=== PATIENT | female | born 1950 | race American Indian/Alaskan Native ===

== ENCOUNTER 2020-03-11 06:40 | Emergency (ER) | payer MEDICARE, OTHER ==
[~2020-03-11] VITALS: Ht 154.9 cm; Wt 69.4 kg
[~2020-03-11 06:40] MED LIST: ALLOPURINOL300 MG PO; AMLODIPINE BESY10 MG PO; ASPIRIN EC81 MG PO; HYDROCODON-ACE1 EA11 PO; NORCO 5-325 TA1 EACH PO; OMEPRAZOLE20 MG PO; POTASSIUM CHLO20 ME1 PO; TRIAMTERENE-HC1 EAC1 PO
--- OUTSIDE RECORDS SUMMARY | 2020-03-11 06:42 | XMS ---
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 Earle has no Care Guidelines for this patient. Jerry VISIT COUNT (12 MO.) 1 TARUN Schaefer TOTAL 1 NOTE: Visits indicate total known visits. ED/C VISIT TRACKING (12 MO.) 03/11/2020 06:40 TARUN Villalobos [place] TYPE: Emergency COMPLAINT: - BACK PAIN, NON INJ INPATIENT VISIT TRACKING (12 MO.) No inpatient visits to display in this time frame [email or web address]
== END 2020-03-11 19:05 | disposition short-term general hospital (02) ==
LOC: ED 06:40
DX: M48.04 Spinal stenosis, thoracic region (principal); M89.9 Disorder of bone, unspecified; I10 Essential (primary) hypertension; Z88.8 Allergy status to other drugs, medicaments and biological substances; Z88.0 Allergy status to penicillin; Z79.899 Other long term (current) drug therapy; Z79.82 Long term (current) use of aspirin
CPT/HCPCS: 71046; 72070; 72128; 80053; 83690; 85025; 96374; 96375; 96376; 99285-25; J1100; J1170; J1885; J2270; J2405; J3010

== ENCOUNTER 2020-03-26 17:41 | Emergency (ER) | payer MEDICARE, OTHER ==
[~2020-03-26] VITALS: Ht 154.9 cm; Wt 69.4 kg
--- OUTSIDE RECORDS SUMMARY | ~2020-03-26 | XMS | Encounter Summary ---
Demographics + + + | Address | [address] | | | [place] [address] | + + + | Home Phone | | + + + | Preferred Language | Unknown | + + + | Marital Status | | + + + | Cheondoism Affiliation | CAT | + + + | Race | or | + + + | Ethnic Group | Not or | + + + Author + + + | Author | [employer] [facility] | + + + | Organization | [facility] | + + + | Address | Unknown | + + + | Phone | Unavailable | + + + Support + + +---------+ + | Name | Relationship | Address | Phone | + + +---------+ + | Jamie Onofre | ECON | Unknown | | + + +---------+ + Care Team Providers + +------+ + | Care Architectural Associate Name | Role | Phone | + +------+ + | Med Quintero MD | PCP | | + +------+ + Encounter Details +--------+ + + + + | Date | Type | Department | Care Team | Description | +--------+ + + + + | 08/27/ | Pharmacy | Pharmacy @ [facility] | | | | 2020 | Visit | [address] | | | | | | [address] Mailcode: | | | | | | [facility] | | | | | | and Healing, | | | | | | [address] | | | | | | [place], [place] | | | | | | [address] | | | +--------+ + + + + Social History + +-------+ +--------+------+ | Tobacco Use | Types | Packs/Day | Years | Date | | | | | Used | | + +-------+ +--------+------+ | Former Smoker | | | | | + +-------+ +--------+------+ + +---+---+---+ | Smokeless Tobacco: | | | | | Never Used | | | | + +---+---+---+ + + +---------+ + | Alcohol Use | Drinks/Week | oz/Week | Comments | + + +---------+ + | Not Currently | | | | + + +---------+ + + + + | Sex Assigned at | Date Recorded | | | | + + + | Not on file | | + + + documented as of this encounter Plan of Treatment Not on filedocumented as of this encounter Visit Diagnoses Not on filedocumented in this encounter"
--- OUTSIDE RECORDS SUMMARY | ~2020-03-26 | XMS | Encounter Summary ---
Demographics + + + | Address | [address] | | | [place] [address] | + + + | Home Phone | | + + + | Preferred Language | Unknown | + + + | Marital Status | | + + + | Alevism Affiliation | CAT | + + + | Race | or | + + + | Ethnic Group | Not or | + + + Author + + + | Author | [employer] [facility] | + + + | Organization | [facility] | + + + | Address | Unknown | + + + | Phone | Unavailable | + + + Support + + +---------+ + | Name | Relationship | Address | Phone | + + +---------+ + | Jamie Onofre | ECON | Unknown | | + + +---------+ + Care Team Providers + +------+ + | Care Drupal Developer Name | Role | Phone | + +------+ + | Med Quintero MD | PCP | | + +------+ + Reason for Visit + +--------+ + | Reason | Onset | Comments | | | Date | | + +--------+ + | Care Coordination | 08/27/ | | | | 2020 | | + +--------+ + Encounter Details +--------+ + + + + | Date | Type | Department | Care Team | Description | +--------+ + + + + | 08/27/ | [facility] | Elvia Shah, | Care Coordination | | 2020 | | [facility] | [address] | | | | | [address] | [facility] | | | | | [address] | [place], [place] | | | | | [place], [address] [place] [address] | [address] | | | | | [place], [place] | [phone] | | | | | [address] | | | | | | [phone] | | | +--------+ + + + [...] + + documented as of this encounter Miscellaneous Notes Telephone Encounter - Selin Perez RN - 08/31/2019 9:56 AM PSTTC to patient. Reports was having intermittent vaginal bleeding "almost like I was on my period." Now just spotting. Amount never as much as 1 pad per hour. Some lower back and pelvic pain- worse when sitting down, 4-5/10 at worst. Has been using i buprofen from [employer] [place], has been helpful, pain not interfering with activities. Some urinary urgency continuing after surgery, same as before. Not much leaking, no change. Pt inquiring about "did they fix my bladder" during surgery, states "maybe it's just taking it's time." No pain or burning with urination. Discussed that sling is intended to prevent leaking of urine and will not necessarily change sensation of urgency. Pt states has not been doing much activity but goes for walks, and holds baby. Reassured that bleeding and mild pain sound normal, monitor symptoms and decrease any activ ities that she notices exacerbate sx. Continue ibuprofen as ordered. Reviewed to seek emergent care for bleeding >1 pad/hr or severe pain. Follow up with our of elaine or Marina Contreras as needed, and schedule appt with tenter frame operator at [facility]. Pt verbalized understanding and was agreeable to plan. Routing to Dr. Shah and Dr. Schmidt for FYI. elephone Encounter - Selin Perez RN - 08/31/2019 9:53 AM PST Elvia Shah MD You; [facility] Urogyn Triage Pool; Neel Schmidt MD 1 hour ago (8:26 AM) Happy to see Verena. She travels over 5 hours to get here so we had decided only to schedule post-op if needed. Her symptoms sound very normal and non-worrisome. Please call and offer a n appt if desired or that the bleeding likely represents the last of the sutures dissolving and she can just monitor symptoms. If bleeding >1pad/hour she should seek care urgently. Routing comment elephone Encount er - Neel Schmidt MD - 08/30/2019 7:33 PM PSTShe should be examined by a tenter frame operator at some point but this does not sound urgent or emergent. She was seen for a postop visit a fe w weeks ago and was noted to have intact and healing incisions. Should she develop very hea vy vaginal bleeding (>1 pad/hr for more than to hours, saturating the pad), she should seek emergent care in the ED or an urgent care facility. If an OBGYN comes to that clinic on Fri, she could certainly be evaluated. Alternatively, she can schedule an additional post operative visit with us (she does not currently have one scheduled). elephone Encounter - Selin Perez RN - 08/30/2019 3:49 PM PSTTC from FERMIN Carpio at [facility] in [facility]. Reports pt went to clinic Friday, had vaginal bleeding. Using pads, <1 pad per hour but Shirin unsure of leigh unt. Also saw several quarter-sized clots while showering. Pt had no dizziness or signs of dangerous blood loss. Pt reported that she had been increasing activity (walking 2+ miles, loading firewood), and Shirin recommended scaling back. They have REGIONAL SALES ASSOCIATE who comes in on Tuesdays. Shirin did not have alternate contact information for Verena. If she is able to reach patient, she will ask her to call [facility]. Tried to call patient again and again no answer or voice mail. Routing to Dr. Shah for review and recommendations. elephone Encount er - Selin Perez RN - 08/30/2019 1:28 PM PSTTC to patient. No answer and no voice mail at [phone]. No alternate number and pt does not have [employer]. TC to Shirin at [facility]. No answer, left message to call back. Electronically sig angie by Selin Perez RN at 08/30/2019 1:30 PM PSTTelephone Encounter - Raji Newman - 08/27/2019 4:18 PM Ar CHRISTENSEN at [facility] in [facility], [place] calling statin g they saw the patient for post op bleeding and requests a call back to discuss. DOS 08/02 Shirin can be reached at [phone] signed by Prudence Newman at 0 4:19 PM PSTdocumented in this encounter Plan of Treatment Not on filedocumented as of this encounter Visit Diagnoses Not on filedocumented in this encounter
--- OUTSIDE RECORDS SUMMARY | ~2020-03-26 | XMS | Encounter Summary ---
Demographics + + + | Address | [address] [place] [address] | | | [place] [address] | + + + | Home Phone | | + + + | Preferred Language | Unknown | + + + | Marital Status | | + + + | Faith Affiliation | Unknown | + + + | Race | White | + + + | Ethnic Group | Not or | + + + Author + + + | Author | [facility] | | | and [place] | + + + | Organization | [facility] | | | [facility] [place] | + + + | Address | Unknown | + + + | Phone | Unavailable | + + + Support + + + + + | Name | Relationship | Address | Phone | + + + + + | Jamie Sheoships | ECON | [address] | | | | | [place] [address] | | + + + + + Care Team Providers + +------+ + | Care Sheet Music Salesperson Name | Role | Phone | + +------+ + PCP | Unavailable | + +------+ + Encounter Details +--------+ + + + + | Date | Type | Department | Care Team | Description | +--------+ + + + + | 09/15/ | [facility] | [facility] | | | | 2009 - | Encounter | [facility] | | | | | | MARIN Crane | | | | 10/04/ | | [place] | | | | 2009 | | [address] | | | | | | [phone] | | | +--------+ + + + + Social History + +-------+ +--------+------+ | Tobacco Use | Types | Packs/Day | Years | Date | | | | | Used | | + +-------+ +--------+------+ | Never Assessed | | | | | + +-------+ +--------+------+ + + + | Sex Assigned at | Date Recorded | | | | + + + | Not on file | | + + + documented as of this encounter Plan of Treatment Not on filedocumented as of this encounter Visit Diagnoses Not on filedocumented in this encounter"
--- OUTSIDE RECORDS SUMMARY | ~2020-03-26 | XMS | Encounter Summary ---
Demographics + + + | Address | [address] | | | [place] [address] | + + + | Home Phone | | + + + | Preferred Language | Unknown | + + + | Marital Status | | + + + | Cheondoism Affiliation | CAT | + + + | Race | or | + + + | Ethnic Group | Not or | + + + Author + + + | Author | [employer] [facility] [employer] | + + + | Organization | [facility] | + + + | Address | Unknown | + + + | Phone | Unavailable | + + + Support + + +---------+ + | Name | Relationship | Address | Phone | + + +---------+ + | Jamie Onofre | ECON | Unknown | | + + +---------+ + Care Team Providers + +------+ + | Care Hvac Sales Representative Name | Role | Phone | + +------+ + | Med Quintero MD | PCP | | + +------+ + Encounter Details +--------+ + + + + | Date | Type | Department | Care Team | Description | +--------+ + + + + | 06/14/ | [facility]ati [facility] | Elvia Shah, | | | 2019 | on | [facility] | [address] | | | | | [place] [address] | [address] | | | | | [address] | [place], [place] | | | | | [place], [facility] | [address] | | | | | [place], [place] | [phone] | | | | | [address] | | | | | | [phone] | | | +--------+ + + + [...] | | | + +---+---+---+ + + + | Sex Assigned at | Date Recorded | | | | + + + | Not on file | | + + + documented as of this encounter Miscellaneous Notes Telephone Encounter - Shaneka De La Cruz MA - 06/14/2019 4:01 PM [id number] Operative report re ceived from [facility]. documented in this encounter Plan of Treatment Not on filedocumented as of this encounter Visit Diagnoses Not on filedocumented in this encounter"
--- OUTSIDE RECORDS SUMMARY | ~2020-03-26 | XMS | Encounter Summary ---
Demographics + + + | Address | [address] | | | [place] [address] | + + + | Home Phone | | + + + | Preferred Language | Unknown | + + + | Marital Status | | + + + | Spiritism Affiliation | CAT | + + + | Race | or | + + + | Ethnic Group | Not or | + + + Author + + + | Author | [facility] | + + + | Organization | [facility] | + + + | Address | Unknown | + + + | Phone | Unavailable | + + + Support + + +---------+ + | Name | Relationship | Address | Phone | + + +---------+ + | Jamie Onofre | ECON | Unknown | | + + +---------+ + Care Team Providers + +------+ + | Care Foundation Stage Teacher Name | Role | Phone | + +------+ + | Med Quintero MD | PCP | | + +------+ + Reason for Visit AUTH/CERT +--------+--------+ + + + + | Status | Reason | Specialty | Diagnoses / | Referred By | Referred To | | | | | Procedures | Contact | Contact | +--------+--------+ + + + + | | | | | | | +--------+--------+ + + + + Encounter Details +--------+ + + + + | Date | Type | Department | Care Team | Description | +--------+ + + + + | 08/02/ | Anesthesia | [facility] | Litzy Smart | | | 2020 | Event | [facility] | MD Gideon [address] | | | | | and Healing Surgery | [address] | | | | | Center Admitting | [place], [place] | | | | | Desk Located on the | [address] | | | | | [facility] floor [address] | [phone] | | | | | [address] [place], | | | | | | [place] [address] | | | +--------+ + + + + Anesthesia Record + + + + + | Procedure Name | Responsible | Anesthesia Start | Anesthesia Stop Time | | | Anesthesiologist | Time | | + + + + + | COLPOCLEISIS LE | Litzy Smart, | 08/02/19 1020 | 08/02/19 1217 | | ERIKA, REPAIR OF | MD | | | | ENTEROCELE, VAGINAL | | | | | APPROACH, COMBINED | | | | | ANTEROPOSTERIOR | | | | | COLPORRHAPHY, | | | | | POSTERIOR | | | | | COLPORRHAPHY, WITH | | | | | OR WITHOUT | | | | | PERINEORRHAPHY, TVT | | | | | SLING OPERATION, | | | | | REVISION/REMOVAL OF | | | | | VAGINAL GRAFT, | | | | | VAGINAL APPROACH, | | | | | CYSTOURETHROSCOPY | | | | | (N/A ) | | | | + + + + + +----+---+ + + | Da | T | Event | Comment | | te | i | | | | | m | | | | | e | | | +----+---+ + + | 01 | 1 | Eq Check | Anesthesia machine checked Equipment verified | | /2 | 0 | | | | 7/ | 2 | | | | 20 | 0 | | | | 20 | | | | +----+---+ + + | | 1 | Pt. Check | Prior to anesthesia start, pt. Identified, examined, chart | | | 0 | | reviewed, PARQ held, anesthetic plan made or approved by | | | 2 | | attending anesthesiologist. NPO status confirmed as appropriate | | | 0 | | for procedure Preoperative evaluation: unchanged | +----+---+ + + | | 1 | An Start | | | | 0 | | | | | 2 | | | | | 0 | | | +----+---+ + + | | 1 | An Start | | | | 0 | Data | | | | 2 | | | | | 0 | | | +----+---+ + + | | 1 | Vitals | Monitors applied Vital signs checked Patient ready for anesthesia | | | 0 | Checked | | | | 2 | | | | | 6 | | | +----+---+ + + | | 1 | SGA | | | | 0 | | | | | 2 | | | | | 6 | | | +----+---+ + + | | 1 | Ready | | | | 0 | | | | | 2 | | | | | 8 | | | +----+---+ + + | | 1 | Timeout | | | | 0 | | | | | 3 | | | | | 1 | | | +----+---+ + + | | 1 | Abx | | | | 0 | Administere | | | | 3 | d | | | | 2 | | | +----+---+ + + | | 1 | Incision | | | | 0 | | | | | 3 | | | | | 8 | | | +----+---+ + + | | 1 | Local | | | | 0 | Anesthetic | | | | 3 | by Surgeon | | | | 8 | | | +----+---+ + + | | 1 | Local | | | | 1 | Anesthetic | | | | 2 | by Surgeon | | | | 0 | | | +----+---+ + + | | 1 | Surgery end | | | | 2 | | | | | 1 | | | | | 1 | | | +----+---+ + + | | 1 | SGA Removed | | | | 2 | | | | | 1 | | | | | 1 | | | +----+---+ + + | | 1 | an stop | | | | 2 | data | | | | 1 | | | | | 3 | | | +----+---+ + + | | 1 | PACU Rpt | | | | 2 | Given | | | | 1 | | | | | 7 | | | +----+---+ + + | | 1 | Anesthesia | | | | 2 | End | | | | 1 | | | | | 7 | | | +----+---+ + + | | 1 | Post-Op | | | | 4 | Page | | | | 0 | | | | | 0 | | | +----+---+ + + +------+ | Meds | +------+ + + + | Name | Total | + + + | fentaNYL | 50 mcg | + + + | lidocaine 2% | 60 mg | + + + | propofol (DIPRIVAN) 200 mg | 200 mg | + + + | dexamethasone | 4 mg | + + + | ondansetron | 4 mg | + + + | ceFAZolin (ANCEF) injection 2 g | 2,000 mg | + + + | LR | 1,000 mL | + + + | lactated ringers (LR) infusion | 0 mL | + + + + + | Name | + + | O2 FR Avance (Total Liters) | + + | Air FR Avance (l/min) | + + | Insp Sevo | + + | Et Sevo | + + | Insp N2O % | + + + + | No blood administrations on file. | + + +--------+ + + + | Type | Details | Placement | Removal | +--------+ + + + | Incisi | 08/02/19; vagina | 08/02/19 0000 by | | | on | | Ebony Lennon RN | | +--------+ + + + | Periph | 08/02/19; 1006; Clinic Staff; | 08/02/19 1006 by | 08/03/19 1040 by | | aubriel | Left; Dorsal; Hand; 20 g; None; | Marsha Heath RN | Jennifer Street RN | | IV | Positive; 08/03/19; 1040 | | | +--------+ + + + | Urethr | 08/02/19; 1040; Dr. Shah; | 08/02/19 1040 by | 08/03/19 0601 by | | al | Kevon; 16 Fr.; 10 mL; 08/03/19; | Ebony Lennon RN | Rodney Page RN | | Anika | 0601; Per order | | | | er | | | | +--------+ + + + documented in this encounter Social History + +-------+ +--------+------+ | Tobacco [...] + + documented as of this encounter OR Notes Anesthesia Postprocedure Evaluation - Janelle Artis CRNA - 08/02/2019 12:17 PM PSTFor matting of this note might be different from the original. Verena Onofre [id number] Vitals Value Taken Time BP 128/61 08/02/2019 12:16 PM Temp 36.7 C (98.1 F) 08/02/2019 12:16 PM Pulse 82 08/02/2019 12:16 PM Resp 10 08/02/2019 12:16 PM SpO2 100 % 08/02/2019 12:16 PM EVALUATION VS (BP, HR, RR, SpO2, and Temp) and hydration status are stable ROS including Cards, Resp, Neuro, and GI without evidence of adverse effects No PONV Pain controlled No altered mental status COMPLICATIONS No adverse events nesthesia Proce dure Notes - Janelle Artis CRNA - 08/02/2019 10:56 AM PSTAssociated Order(s): SGAAIRWA Y MANAGEMENT - SGA Time of Placement: 08/02/2019 10:26 AM Positioning: Supine Location Performed:OR OXYGENATION Patient was preoxygenated Grade: Grade 0 - Ventilation by mask not attempted LMA DETAILS LMA Type: Air-Q LMA Size: 3.5 - 3.5 CONFIRMATION airway not difficult Number of Attempts: 1 Atraumatic placement Positive for EtCO2:Waveform capnography Breath Sounds: Bilateral and equal NARRATIVE Attending was physically present for the critical portions of the procedure as described in the procedure note Attending/Authorizing Provider: Litzy Smart MD Performing Provider: Janelle Artis CRNA nesthesia Preproc edure Evaluation - Litzy Smart MD - 08/02/2019 8:59 AM PSTFormatting of this note m ight be different from the original. [facility] [id number] Allergies Allergen Reactions Penicillins Unknown NPO: Last Vitals Preg Status/LMP There is no problem list on file for this patient. Past Surgical History Procedure Laterality Date Rectocele repair 04/24/2011 with dermis reinforcement Repair of cystocele with mesh 04/24/2011 with Prolene mesh, vault suspension Anterior and posterior vaginal repair 1999 with enterocele resection Bilateral tubal ligation Darryl-bso (total abdominal hysterectomy and bilateral salpingo-oophorectomy) 1994 with needle suspension and anterior repair Laparoscopic cholecystectomy Breast lumpectomy Left Urethropexy using midurethral sling by transobturator approach 04/24/2011 Current Medication List Name Sig Last Dose ALLOPURINOL 300 MG TABLET Take 300 mg by mouth once daily. 07/16/2019 AMLODIPINE 10 MG TABLET Take 10 mg by mouth once daily. 07/16/2019 ASPIRIN 81 MG TABLET,DELAYED RELEASE Take 81 mg by mouth once daily. 07/16/2019 OMEPRAZOLE 20 MG CAPSULE,DELAYED RELEASE Take 20 mg by mouth once daily. 07/16/2019 Lab Results Component Value Date RATE 70 07/16/2019 ATRIALRATE 70 07/16/2019 OR 137 07/16/2019 QRS 80 07/16/2019 QT 404 07/16/2019 PAXIS 9 07/16/2019 RAXIS 14 07/16/2019 TAXIS -41 07/16/2019 ANESTHESIA PLAN ASA 2 ANESTHETIC TECHNIQUE Technique Used: General MONITORS/LINES TO BE USED Standard POSTOP PAIN IV analgesics Oral analgesics INFORMED CONSENT PARQ and risks/benefits of anesthetic plan discussed with Patient Dental Risk discussed with patient PATIENT'S CODE STATUS IN OR FULL - full code documented in this encounter Miscellaneous Notes PMC/ANE PreOp Note - Litzy Smatr MD - 08/02/2019 8:58 AM PSTROS: HPI: Prior Anesthetic Problems: No Pulmonary: Within Defined Limits except as noted below no shortness of breath no cough no wheezing no Recent Respiratory Infection Pt. Has no asthma no COPD No dx of sleep apnea Risk factors for sleep apnea: Age>50 Pt at low risk of CORDELIA Cardiovascular: Hx Rheumatic heart disease Functional Capacity: Moderate hypertension well controlled no va lvular problems/murmurs no arrhythmia GI/Hepatic: GERD Control: well controlled no liver disease Renal: Within Defined Limits except as noted below no renal failure Endo: Hx prediabetes- controlled with diet no Diabetes: no Endocrine Other Neuro/Psych: Within Defined limits except as noted below No Head Conditions no pain Current pain score : 0 Musculoskeletal: no arthritis No Muscular Disorders no skeletal disorders Heme/Onc: Pt. has: no active bleeding no bleeding disorder No clotting disorders malignancy La ast Infectious Disease: no MRSA no VRE Skin: no open wounds No active skin infections no skin conditions Physical Exam General: Appearance: No distress LOC: Alert Airway: Dentition: dental implants, bridges or caps present missing teeth Mallampati: 2 Mouth Openi ng: > 3 cm TM Distance:> 6 cm C-Spine ROM: Normal Neck Anatomy: Normal Jaw Protrusion: Normal (lower incisors go above upper incisors) Pulmonary: Respiratory: pulmonary exam normal Breath Sounds: breath sounds normal Cardiovascular: Rhythm: Regular Rate: Normal Neuro/Psych: Affect: Normal Cognitive Status: Normal Speech: Normal speech Strength: Normal Skin: Color: skin color normal Temperature: Warm Other Implanted Devices: Implanted devices: None documented in this encounter Plan of Treatment Not on filedocumented as of this encounter Procedures + +--------+ + + + | Procedure Name | Priori | Date/Time | Associated Diagnosis | Comments | | | ty | | | | + +--------+ + + + | ANE LMA | Routin | 08/02/2019 | | Results for this | | | e | 10:56 AM | | procedure are in the | | | | PST | | results section. | + +--------+ + + + documented in this encounter Results SGA (08/02/2019 10:56 AM PST) + + + | Narrative | Performed At | + + + | Janelle Artis CRNA 08/02/2019 10:57 AM AIRWAY MANAGEMENT | | | - SGA Time of Placement: 08/02/2019 10:26 AM Positioning: Supine | | | Location Performed:OR OXYGENATION Patient was preoxygenated | | | Grade: Grade 0 - Ventilation by mask not attempted LMA DETAILS | | | LMA Type: Air-Q LMA Size: 3.5 - 3.5 CONFIRMATION airway not | | | difficult Number of Attempts: 1 Atraumatic placement Positive for | | | EtCO2:Waveform capnography Breath Sounds: Bilateral and equal | | | NARRATIVE Attending was physically present for the critical portions | | | of the procedure as described in the procedure note | | | Attending/Authorizing Provider: Litzy Smart MD Performing | | | Provider: Janelle Artis CRNA | | + + + documented in this encounter Visit Diagnoses Not on filedocumented in this encounter Administered Medications + +--------+ + +------+------+ | Medication Order | MAR | Action | Dose | Rate | Site | | | Action | Date | | | | + +--------+ + +------+------+ | ceFAZolin (ANCEF) injection 2 g | Given | 08/02/19 | 2,000 mg | | | | 2 g, intravenous, PREPROCEDURE | | 20 10:32 | | | | | ONCE, 1 dose, Starting Mon | | AM PST | | | | | 08/02/19 at 0928, Until Mon | | | | | | | 08/02/19 at 1032 | | | | | | + +--------+ + +------+------+ +---+---+ | | | +---+---+ + +-------+ +------+---+---+ | dexamethasone (DECADRON) | Given | 08/02/19 | 4 mg | | | | injection intravenous, | | 20 10:32 | | | | | INTRAPROCEDURE PRN, Starting Mon | | AM PST | | | | | 08/02/19 at 1032, Until Mon | | | | | | | 08/02/19 at 1217 | | | | | | + +-------+ +------+---+---+ +---+---+ | | | +---+---+ + +-------+ +--------+---+---+ | fentaNYL (SUBLIMAZE) injection | Given | 08/02/19 | 50 mcg | | | | intravenous, INTRAPROCEDURE PRN, | | 20 10:35 | | | | | Starting 08/02/19 at 1035, | | AM PST | | | | | Until 08/02/19 at 1217 | | | | | | + +-------+ +--------+---+---+ +---+---+ | | | +---+---+ + +---------+ +---+---+---+ | lactated ringers (LR) infusion | New Bag | 08/02/19 | | | | | intravenous, INTRAPROCEDURE | | 20 11:33 | | | | | CONTINUOUS PRN, Starting Mon | | AM PST | | | | | 08/02/19 at 1020, Until Mon | | | | | | | 08/02/19 at 1217 | | | | | | + +---------+ +---+---+---+ +---------+ +---+---+---+ | New Bag | 08/02/19 | | | | | | 20 10:20 | | | | | | AM PST | | | | +---------+ +---+---+---+ +---+---+ | | | +---+---+ + +-------+ +-------+---+---+ | lidocaine (XYLOCAINE MPF) 2 % | Given | 08/02/19 | 60 mg | | | | (20 mg/mL) injection | | 20 10:25 | | | | | intravenous, INTRAPROCEDURE PRN, | | AM PST | | | | | Starting Fri08/02/19 at 1025, | | | | | | | Until Fri08/02/19 at 1217 | | | | | | + +-------+ +-------+---+---+ +---+---+ | | | +---+---+ + +-------+ +------+---+---+ | ondansetron (ZOFRAN) injection | Given | 08/02/19 | 4 mg | | | | intravenous, INTRAPROCEDURE PRN, | | 20 11:44 | | | | | Starting 08/02/19 at 1144, | | AM PST | | | | | Until 08/02/19 at 1217 | | | | | | + +-------+ +------+---+---+ +---+---+ | | | +---+---+ + +---------+ +--------+---+---+ | propofol (DIPRIVAN) 200 mg | New Bag | 08/02/19 | 200 mg | | | | intravenous, INTRAPROCEDURE | | 20 10:25 | | | | | CONTINUOUS PRN, Starting Mon | | AM PST | | | | | 08/02/19 at 1025, Until Mon | | | | | | | 08/02/19 at 1217 | | | | | | + +---------+ +--------+---+---+ +---+---+ | | | +---+---+ documented in this encounter"
--- OUTSIDE RECORDS SUMMARY | ~2020-03-26 | XMS | Encounter Summary ---
Demographics + + + | Address | [address] | | | [place] [address] | + + + | Home Phone | | + + + | Preferred Language | Unknown | + + + | Marital Status | | + + + | Buddhism Affiliation | CAT | + + + | Race | or | + + + | Ethnic Group | Not or | + + + Author + + + | Organization | Unknown | + + + | Address | Unknown | + + + | Phone | Unavailable | + + + Support + + +---------+ + | Name | Relationship | Address | Phone | + + +---------+ + | Jamie Onofre | ECON | Unknown | | + + +---------+ + Care Team Providers + +------+ + | Care Metal Work Duct Installer Name | Role | Phone | + +------+ + | Med Quintero MD | PCP | | + +------+ + Encounter Details +--------+--------+ + + + | Date | Type | Department | Care Team | Description | +--------+--------+ + + + | 08/02/ | Travel | | | | | 2020 | | | | | +--------+--------+ + + + Social History + +-------+ [...]
--- OUTSIDE RECORDS SUMMARY | ~2020-03-26 | XMS | Encounter Summary ---
Demographics + + + | Address | [address] | | | [place] [address] | + + + | Home Phone | | + + + | Preferred Language | Unknown | + + + | Marital Status | | + + + | Quaker Affiliation | CAT | + + + [...] Team Providers + +------+ + | Care Construction Project Coordinator Name | Role | Phone | + +------+ + | Med Quintero MD | PCP | | + +------+ + Encounter Details +--------+--------+ + + + | Date | Type | Department | Care Team | Description | +--------+--------+ + + + | 07/16/ | Travel | | | | | [...]
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
--- OUTSIDE RECORDS SUMMARY | ~2020-03-26 | XMS | Encounter Summary ---
Demographics + + + | Address | [address] | | | [place] [address] | + + + | Home Phone | | + + + | Preferred Language | Unknown | + + + | Marital Status | | + + + | Protestant Affiliation | CAT | + + + | Race | or | + + + | Ethnic Group | Not or | + + + Author + + + | Author | [facility] | + + + | Organization | [facility] | + + + | Address | Unknown | + + + | Phone | Unavailable | + + + Support + + +---------+ + | Name | Relationship | Address | Phone | + + +---------+ + | Jamie Onofre | ECON | Unknown | | + + +---------+ + Care Team Providers + +------+ + | Care Research Hydraulic Engineer Name | Role | Phone | + +------+ + | Med Quintero MD | PCP | | + +------+ + Reason for Visit + +--------+ + | Reason | Onset | Comments | | | Date | | + +--------+ + | housing accomodation | 07/20/ | RPV approved | | | 2020 | | + +--------+ + Encounter Details +--------+ + + + + | Date | Type | Department | Care Team | Description | +--------+ + + + + | 07/20/ | Telephone | SOCIAL WORK | Elisha Infante | housing accomodation | | 2019 | | AM[address]ULATORY [address] | (RPV approved) | | | | [address] | [place], | | | | | Mailcode: CH6A | [place] [address] | | | | | [place], [place] | | | | | | [address] | | | | | | [phone] | | | +--------+ + + + [...] this encounter Miscellaneous Notes Telephone Encounter - Katerin Edmondson RN - 07/30/2019 8:29 AM PSTSpoke with patient to syed alva her upcoming surgery. She reports to me that her granddaughter, Silvia, will not be acc ompanying her to surgery and [address] It will instead be Silvia's mother, Norberto bianka Juliaoships. Routing to [facility] staff to update. elephone Encounter - Elisha Infante - 07/20/2019 1 1:40 AM PSTPatient meets all screening criteria for [facility] ([facility]PV) [facility] on-line screening intake completed and RPV eligibility effective date: 07/20/2019- 07/19/2019 Name of the adults (18 and over) screened: Patient and granddaughter, Silvia Onofre ADA/Service animal requirements indicated (please explain if yes): No Financial eligibility (full $50 payment or FA eligible): FA Payment source: [facility] - patient HH of 2 is under the 400% FPL criteria Initial RPV reservation dates requested: 08/01-08/04/2019 RPV reservation dates obtained: 08/01-08/04/2019 Patient will receive an e-mail confirmation and phone call from the [facility] Family Placement Co ordinator confirming the secured reservation. Elisha Infante, Display Screen Fabricator [phone] Blind Slat Stapling Machine Operator pager [phone] documented in this encounte r Plan of Treatment Not on filedocumented as of this encounter Visit Diagnoses Not on filedocumented in this encounter"
--- OUTSIDE RECORDS SUMMARY | ~2020-03-26 | XMS | Encounter Summary ---
Demographics + + + | Address | [address] | | | [place] [address] | + + + | Home Phone | | + + + | Preferred Language | Unknown | + + + | Marital Status | | + + + | Sikhism Affiliation | CAT | + + + | Race | or | + + + | Ethnic Group | Not or | + + + Author + + + | Author | [facility] | + + + | Organization | [facility] | + + + | Address | Unknown | + + + | Phone | Unavailable | + + + Support + + +---------+ + | Name | Relationship | Address | Phone | + + +---------+ + | Jamie Onofre | ECON | Unknown | | + + +---------+ + Care Team Providers + +------+ + | Care Metal Molder Name | Role | Phone | + +------+ + | Med Quintero MD | PCP | | + +------+ + Reason for Referral Consult to [place] (Routine) +--------+--------+ + + + + | Status | Reason | Specialty | Diagnoses / | Referred By | Referred To | | | | | Procedures | Contact | Contact | +--------+--------+ + + + + | Closed | | Obstetrics & | Diagnoses | Cainhowski, | [facility] | | | | Gynecology | Cystocele, | Elvia Chun MD | [address] | | | | | midline | [address] [facility] | [address] | | | | | Rectocele | [address] | [address] | | | | | Prolapse of | [address] | Pavilion, [address]th | | | | | vaginal | [place], [place] | floor | | | | | vault after | | [place], [place] | | | | | hysterectomy | Phone: | | | | | | Stress | [phone] | Phone: | | | | | incontinence | Fax: | [phone] | | | | | (female) | [phone] | Fax: | | | | | (male) | | [phone] | | | | | Exposure of | | | | | | | implanted | | | | | | | vaginal mesh | | | | | | | into vagina | | | | | | | Procedures | | | | | | | REQUEST TO | | | | | | | SURGERY | | | | | | | CLAIMS ACCOUNT MANAGER | | | | | | | NV CLOSURE | | | | | | | OF VAGINA | | | | | | | NV REPAIR | | | | | | | ENTEROCELE,V | | | | | | | AG APPRCH | | | | | | | NV COMBINED | | | | | | | ANT/POST | | | | | | | COLPORRHAPHY | | | | | | | NV POST | | | | | | | COLPORRHAPHY | | | | | | | ,RECTUM/VAGI | | | | | | | NA NV SLING | | | | | | | OPER STRES | | | | | | | INCONTINENCE | | | | | | | NV CHNG | | | | | | | VGNL GRAFT | | | | | | | NV | | | | | | | CYSTOURETHRO | | | | | | | SCOPY | | | +--------+--------+ + + + + Reason for Visit + + + | Reason | Comments | + + + | Existing Patient | | | Consultation | | + + + Intake Referral (Routine) + +--------+ + + + + | Status | Reason | Specialty | Diagnoses / | Referred By | Referred To | | | | | Procedures | Contact | Contact | + +--------+ + + + + | Authorized | | Obstetrics & | Diagnoses | [facility], | [facility] | | | | Gynecology | Vaginal | MD Med | [address] | | | | | prolapse | [address] [facility] | [address] | | | | | Cystocele | [address] | [address] | | | | | Procedures | [address] | | | | | NV NEW | [place], | floor | | | | | PATIENT | [place] [address] | [place], [place] | | | | | LEVEL V NV | Phone: | [phone] | | | | | EST PATIENT | [phone] | Phone: | | | | | LEVEL V NV | Fax: | [phone] | | | | | CYSTOURETHRO | [phone] | Fax: | | | | | SCOPY NV | | [phone] | | | | | CYSTOURETHRO | | | | | | | SCOPY,W INJ | | | | | | | CHEMODENV | | | | | | | BLDR NV | | | | | | | BOTULINUM | | | | | | | TOXIN A PER | | | | | | | UNIT NV | | | | | | | CYSTOMETROGR | | | | | | | AM W/SENIOR ASP NET DEVELOPER&UP | | | | | | | NV | | | | | | | INTRAABDOMIN | | | | | | | AL PRESSURE | | | | | | | TEST NV | | | | | | | ELECTRO-UROF | | | | | | | LOWMETRY, | | | | | | | FIRST NV | | | | | | | ANAL/URINARY | | | | | | | MUSCLE | | | | | | | STUDY NV | | | | | | | URETHROCYSTO | | | | | | | GRAM+VOIDING | | | | | | | NV | | | | | | | INJECTION | | | | | | | FOR BLADDER | | | | | | | X-RAY | | | | | | | Urodynamics | | | | | | | + Cystoscopy | | | + +--------+ + + + + Encounter Details +--------+---------+ + + + | Date | Type | Department | Care Team | Description | +--------+---------+ + + + | 06/16/ | Office [facility] | Elvia Shah, | Urge incontinence | | 2019 | Visit | [facility] | [address] | (Primary Dx); | | | | [address] | [address] | History of prolapse | | | | [address] | [place], [place] | of bladder | | | | Pavilion, 7th floor | [address] | | | | | [place], [place] | [phone] | | | | | [address] | | | | | | [phone] | | | +--------+---------+ + + + [...] + + + | Blood Pressure | 140/88 | 06/16/2019 11:38 AM | | | | | PST | | + + + + + | Pulse | 82 | 06/16/2019 11:38 AM | | | | | PST | | + + + + + | Temperature | 36.9 C (98.5 F) | 06/16/2019 11:38 AM | | | | | PST | | + + + + + | Respiratory Rate | - | - | | + + + + + | Oxygen Saturation | 98% | 06/16/2019 11:38 AM | | | | | PST | | + + + + + | Inhaled Oxygen | - | - | | | Concentration | | | | + + + + + | Weight | 63.6 kg (140 lb 4.8 | 06/16/2019 11:38 AM | | | | oz) | PST | | + + + + + | Height | - | - | | + + + + + | Body Mass Index | 25.66 | 05/05/2019 8:24 AM | | | | | PDT | | + + + + + documented in this encounter Progress Elvia Antonio MD - 06/16/2019 11:30 AM REYNALDO verified the history with the patient and was present for the exam and counseling. I agree with the plan of care as outlined below. Th is was a 25 minute over half of which was spent in coordination and consultation of care reg arding the patient's POP and FAVIOLA. She decided that she wanted whatever surgery had the highe st chance of not needing additional surgeries as she's already failed 3 prolapse procedures. Given that she's not sexually active she would like a colpocleisis. Elvia Shah MD [facility] AT [address] [address] [id number] signed by Elvia Shah MD at 06/16/2019 3:37 PM PSTRot, Yoan mcqueen MD - 06/16/2019 11:30 AM PSTFormatting of this note might be different from the origi nal. Gynecology Return Visit Date and Time: 06/16/2019 Last Seen: 05/05/19 HPI: Verena Onofre is a 69 y.o. who presents today for a return visit to discuss surgical planning regarding recurrent prolapse symptoms. Her prior surgical history, as doc umented below, includes three prior failed procedures to treat her prolapse. At her last wit h us, colpocleisis and sacral colpopexy were discussed. Verena requested some time to think ab out these two procedures and to discuss with her before making a decision. Ultimatel y, risk of recurrence is what is most pressing to her; as she has had three prior failed pro cedures, she is very interested in a procedure that is likely to cure her prolapse symptoms. She has not been sexually active for the last 7 years and does not plan to become sexually active as her is not healthy at the time and she has her own medical and social stre ssors that take up much of her free time. Regarding her general health, she is able to walk 3-4 miles without SOB, chest pain or othe r difficulties. Surgical record review: 1990s:FAROOQ, BSO, needle suspension and anterior repair 2000: anterior/posterior repair with enterocele resection 2011: rectocele/cystocele repair with prolene mesh anteriorly and TOT sling Review of Systems: All systems reviewed. Details in HPI above, otherwise negative. PMHx: Past Medical History: Diagnosis Date Breast cancer (HCC) 2010 s/p lumpectomy and XRT GERD (gastroesophageal reflux disease) History of prediabetes Hypertension PSHx: Past Surgical History Procedure Laterality Date Rectocele repair 04/24/2011 with dermis reinforcement Repair of cystocele with mesh 04/24/2011 with Prolene mesh, vault suspension Urethropexy using midurethral sling by retropubic approach 04/24/2011 Anterior and posterior vaginal repair 1999 with enterocele resection Bilateral tubal ligation Farooq-bso (total abdominal hysterectomy and bilateral salpingo-oophorectomy) 1994 with needle suspension and anterior repair Laparoscopic cholecystectomy Breast lumpectomy Left Ob Hx: OB History 4 Para 4 Term 4 0 AB 0 Living 4 SAB TAB Ectopic Multiple Live Births 4 # Outc Date GA Lbr Carlos/2nd Wgt Sex Del Anes PTL Lv 1 Term Vag-Spont 2 Term Vag-Spont 3 Term Vag-Spont 4 Term Vag-Spont Obstetric Comments Patient is postmenopausal. Menopause: In her 50s Age at Menarche: 11 years old. Menses: regular cycle, every 28 days, bleeding for 4 days. Menses: normal. Patient is not sexually active for the last 7+ years. Soc Hx: Member of the [facility] Medications: Current Outpatient Medications Medication Sig allopurinol 300 mg oral tablet Take 300 mg by mouth. amLODIPine 10 mg oral tablet Take 10 mg by mouth. aspirin EC 81 mg oral tablet,delayed release (DR/EC) Take 81 mg by mouth. omeprazole 20 mg oral capsule,delayed release(DR/EC) Take 20 mg by mouth. No current facility-administered medications for this visit. Current Outpatient Medications on File Prior to Visit Medication Sig Dispense Refill allopurinol 300 mg oral tablet Take 300 mg by mouth. amLODIPine 10 mg oral tablet Take 10 mg by mouth. aspirin EC 81 mg oral tablet,delayed release (DR/EC) Take 81 mg by mouth. omeprazole 20 mg oral capsule,delayed release(DR/EC) Take 20 mg by mouth. No current facility-administered medications on file prior to visit. Allergies: Verena is allergic to penicillins. PE: BP 140/88 | Pulse 82 | Temp 36.9 C (98.5 F) | Wt 63.6 kg (140 lb 4.8 oz) | SpO2 98% | BMI 25.66 kg/m | BSA 1.67 m General: This is a well appearing female in no apparent distress. Skin: Warm, dry and no rashes or lesions. HEENT: Normocephalic. Sclera anicteric. Heart: Regular rate. Lungs: No increased wob Abdomen: Soft. Non-tender. No mass Musculoskeletal: Normal. Extremities: No edema. Neurological: Normal POPQ 05/05/19 0 / 0 / -1 6 / 5 / 5 -1 /-1 / NA ASSESSMENT: Verena Onofre is a 69 y.o. with recurrent vaginal prolapse here to further discuss repeat surgery; her options at this time include colpocleisis and sacral colpopexy b oth of which are feasible after review of her 2010 surgical records. We discussed again toda y the pros and cons of both surgeries and after prolonged discussion, desires colpocleisis. PLAN: - Return 07/16/19 for UDS, cystoscopy, pre-op appointment to sign consents - Will schedule for PMC appt same day as follow up visit - Will schedule surgery in July 2019, will stay overnight - Coordinate with GRETEL Jordan regarding housing options postoperative for 1-2 nights t o allow for Verena to stay in the area Patient discussed with Dr. Shah, who was present for high portions of the exam and agre es with the above assessment and plan. Alice Francois MD PGY3 Obstetrics & Gynecology Pager #: [phone] documented in this encou nter Plan of Treatment Not on filedocumented as of this encounter Visit Diagnoses + + | Diagnosis | + + | Urge incontinence - Primary | + + | History of prolapse of bladder | + + documented in this encounter"
--- OUTSIDE RECORDS SUMMARY | ~2020-03-26 | XMS | Encounter Summary ---
Demographics + + + | Address | [address] [place] [address] | | | [place] [address] | + + + | Home Phone | | + + + | Preferred Language | Unknown | + + + | Marital Status | | + + + | Uatsdin Affiliation | Unknown | + + + | Race | White | + + + | Ethnic Group | Not or | + + + Author + + + | Author | [facility] | | | and [place] | + + + | Organization | [facility] | | | and [place] | + + + | Address | Unknown | + + + | Phone | Unavailable | + + + Support + + + + + | Name | Relationship | Address | Phone | + + + + + | Jamie Jemima | ECON | [address] | | | | | [place] [address] | | + + + + + Care Team Providers + +------+ + | Care Long Wall Shear Operator Name | Role | Phone | + +------+ + PCP | Unavailable | + +------+ + Encounter Details +--------+ + + + + | Date | Type | Department | Care Team | Description | +--------+ + + + + | 02/09/ | Hospital | [facility] | Radha, | | | 2008 - | Encounter | MED CTR CANCER | Frankie Mendez MD [address] | | | | | [address] | [address] | | | 03/06/ | | [place] | [address] [place], [place] | | | 2008 | | [address] | [address] | | | | | [phone] | | | +--------+ + + + [...]
--- OUTSIDE RECORDS SUMMARY | ~2020-03-26 | XMS | Encounter Summary ---
Demographics + + + | Address | [address] [place] [address] | | | [place] [address] | + + + | Home Phone | | + + + | Preferred Language | Unknown | + + + | Marital Status | | + + + | Adventism Affiliation | Unknown | + + + | Race | White | + + + | Ethnic Group | Not or | + + + Author + + + | Author | [facility] | | | and [place] | + + + | Organization | [facility] | | | and [place] | + + + | Address | Unknown | + + + | Phone | Unavailable | + + + Support + + + + + | Name | Relationship | Address | Phone | + + + + + | Jamie Sheoships | ECON | [address] | | | | | [place] [address] | | + + + + + Care Team Providers + +------+ + | Care Phlebotomy Services Representative Name | Role | Phone | + +------+ + PCP | Unavailable | + +------+ + Encounter Details +--------+ + + + + | Date | Type | Department | Care Team | Description | +--------+ + + + + | 02/11/ | [facility] | [facility] | Shanta Frost, | | | 2006 - | Encounter | MED CTR XRAY [address] | | | | | [place] | [place], | | | 03/06/ | | [place] [address] | [place] [address] | | | 2006 | | [phone] | [phone] | | | | | | | | +--------+ + + [...]
--- OUTSIDE RECORDS SUMMARY | ~2020-03-26 | XMS | Encounter Summary ---
Demographics + + + | Address | [address] | | | [place] [address] | + + + | Home Phone | | + + + | Preferred Language | Unknown | + + + | Marital Status | | + + + | Jain Affiliation | CAT | + + + [...] Team Providers + +------+ + | Care Laydown Machine Operator Name | Role | Phone | + +------+ + | Med Quintero MD | PCP | | + +------+ + Encounter Details +--------+--------+ + + + | Date | Type | Department | Care Team | Description | +--------+--------+ + + + | 06/16/ | Travel | | | | | 2019 | | | | | +--------+--------+ + [...]
--- OUTSIDE RECORDS SUMMARY | ~2020-03-26 | XMS | Encounter Summary ---
Demographics + + + | Address | [address] | | | [place] [address] | + + + | Home Phone | | + + + | Preferred Language | Unknown | + + + | Marital Status | | + + + | Church Affiliation | CAT | + + + [...] Team Providers + +------+ + | Care Channel Marketing Manager Name | Role | Phone | + +------+ + | Med Quintero MD | PCP | | + +------+ + Encounter Details +--------+--------+ + + + | Date | Type | Department | Care Team | Description | +--------+--------+ + + + | 05/05/ | Travel | | | | | [...]
--- OUTSIDE RECORDS SUMMARY | ~2020-03-26 | XMS | Clinical Summary ---
Demographics + + + | Address | [address] [place] [address] | | | [place] [address] | + + + | Home Phone | | + + + | Preferred Language | Unknown | + + + | Marital Status | | + + + | Caodaism Affiliation | Unknown | + + + | Race | White | + + + | Ethnic Group | Not or | + + + Author + + + | Author | [facility] | | | and [place] | + + + | Organization | [facility] | | | and [place] | + + + | Address | Unknown | + + + | Phone | Unavailable | + + + Support + + + + + | Name | Relationship | Address | Phone | + + + + + | Jamie Mónicaabi | ECON | [address] | | | | | [place] [address] | | + + + + + Care Team Providers + +------+ + | Care Meeting Planner Name | Role | Phone | + +------+ + | Pcp, Prov Inactive | PCP | | + +------+ + Allergies + + + + + + | Active Allergy | Reactions | Severity | Noted | Comments | | | | | Date | | + + + + + + | Penicillins | | | 12/01/19 | | | | | | 17 | | + + + + + + Medications + + + +---------+------+------+-------+ | Medication | Sig | Dispensed | Refills | Star | End | Statu | | | | | | t | Date | s | | | | | | Date | | | + + + +---------+------+------+-------+ | allopurinol | Take 300 mg by mouth | | 0 | | | Activ | | (ZYLOPRIM) 300 mg | Daily. | | | | | e | | tablet | | | | | | | + + + +---------+------+------+-------+ | amLODIPine | Take 10 mg by mouth | | 0 | | | Activ | | (NORVASC) 10 MG | Daily. | | | | | e | | tablet | | | | | | | + + + +---------+------+------+-------+ | omeprazole | Take 20 mg by mouth | | 0 | | | Activ | | (PRILOSEC) 20 mg | every morning | | | | | e | | capsule | (before breakfast). | | | | | | + + + +---------+------+------+-------+ | | Take 1 tablet by | | 0 | | | Activ | | triamterene-hydrochl | mouth Daily. | | | | | e | | orothiazide | | | | | | | | (MAXZIDE-25) 37.5-25 | | | | | | | | mg per tablet | | | | | | | + + + +---------+------+------+-------+ | aspirin 81 mg EC | Take 81 mg by mouth | | 0 | | | Activ | | tablet | Daily. | | | | | e | + + + +---------+------+------+-------+ | terbutaline | Take 2.5 mg by mouth | | 0 | | | Activ | | (BRETHINE) 2.5 mg | every 6 hours. | | | | | e | | tablet | | | | | | | + + + +---------+------+------+-------+ Active Problems Not on file Social History + +-------+ +--------+------+ | Tobacco Use | Types | Packs/Day | Years | Date | | | | | Used | | + +-------+ +--------+------+ | Never Smoker | | | | | + +-------+ +--------+------+ + + +---------+ + | Alcohol Use | Drinks/Week | oz/Week | Comments | + + +---------+ + | No | | | | + + +---------+ + + + + | Sex Assigned at | Date Recorded | | | | + + + | Not on file | | + + + Last Filed Vital Signs + + + + + | Vital Sign | Reading | Time Taken | Comments | + + + + + | Blood Pressure | 155/81 | 11/30/2016 4:16 PM | | | | | PDT | | + + + + + | Pulse | 73 | 11/30/2016 4:16 PM | | | | | PDT | | + + + + + | Temperature | 36.6 C (97.8 F) | 11/30/2016 4:16 PM | | | | | PDT | | + + + + + | Respiratory Rate | 16 | 11/30/2016 4:16 PM | | | | | PDT | | + + + + + | Oxygen Saturation | 98% | 11/30/2016 4:16 PM | | | | | PDT | | + + + + + | Inhaled Oxygen | - | - | | | Concentration | | | | + + + + + | Weight | 70.3 kg (155 lb) | 11/30/2016 4:16 PM | | | | | PDT | | + + + + + | Height | 154.9 cm (5' 1") | 11/30/2016 4:16 PM | | | | | PDT | | + + + + + | Body Mass Index | 29.29 | 11/30/2016 4:16 PM | | | | | PDT | | + + + + + Plan of Treatment + + +-------+ + | Health Maintenance | Due Date | Last | Comments | | | | Done | | + + +-------+ + | Vaccine: | | | | | Dtap/Tdap/Td (1 - | 9 | | | | Tdap) | | | | + + +-------+ + | Vaccine: Zoster (1 | | | | | of 2) | 0 | | | + + +-------+ + | Breast Cancer | | | | | Screening | 5 | | | + + +-------+ + | Vaccine: | | | | | Pneumococcal 65+ (1 | 5 | | | | of 1 - PPSV23) | | | | + + +-------+ + | Vaccine: Influenza | | | | | (#1) | 0 | | | + + +-------+ + Results Not on filefrom Last 3 Months Insurance + +--------+ +--------+ +---------+--------+ | Payer | Benefi | Subscriber | Effect | Phone | Address | Type | | | t Plan | ID | le | | | | | | / | | Dates | | | | | | Group | | | | | | + +--------+ +--------+ +---------+--------+ | BCBS | BCBS | [id number] | 07/07/19 | | | PPO | | | FEDERA | | 16-Pre | | | | | | L FEP | | sent | | | | + +--------+ +--------+ +---------+--------+ | MEDICARE | MEDICA | [id number] | 07/07/19 | [phone] | | Medica | | | RE | | 17-Pre | 5 | | re | | | PART A | | sent | | | | | | AND B | | | | | | + +--------+ +--------+ +---------+--------+ | [employer] | [employer] | [id number] | 07/07/19 | | | Indemn | | SERVICE | YELLOW | | 13-Pre | | | ity | | | HAWK | | sent | | | | + +--------+ +--------+ +---------+--------+ + +--------+ +--------+ + + | Guarantor Name | Accoun | Relation to | Date | Phone | Billing Address | | | t Type | Patient | of | | | | | | | | | | + +--------+ +--------+ + + | Verena Onofre | Person | Self [birth year] | [id number] | | | al/Fam | | 1950 | [phone] | [address], [place] | | | [place] | | | [address] (Home) | [address] | + +--------+ +--------+ + + | Verena Onofre B | Person | Self [birth year] | [id number] | | | al/Fam | | 1950 | [phone] | [address], [place] | | | [place] | | | [address] (Home) | [address] | + +--------+ +--------+ + + Advance Directives + + + + + | Type | Date Recorded | Patient | Explanation | | | | Cork Molder | | + + + + + | Power of | | | | | Health Care Specialist | | | | + + + + + | Advance | | | | | Directive | | | | + + + + +
--- OUTSIDE RECORDS SUMMARY | ~2020-03-26 | XMS | Encounter Summary ---
Demographics + + + | Address | [address] [place] [address] | | | [place] [address] | + + + | Home Phone | | + + + | Preferred Language | Unknown | + + + | Marital Status | | + + + | Orthodox Affiliation | Unknown | + + + | Race | White | + + + | Ethnic Group | Not or | + + + Author + + + | Author | [facility] | | | and [place] | + + + | Organization | [facility] | | | and [place] | + + + | Address | Unknown | + + + | Phone | Unavailable | + + + Support + + + + + | Name | Relationship | Address | Phone | + + + + + | Jamie Sheoships | ECON | [address] | | | | | [place] [address] | | + + + + + Care Team Providers + +------+ + | Care Posting Specialist Name | Role | Phone | + +------+ + PCP | Unavailable | + +------+ + Encounter Details +--------+ + + + + | Date | Type | Department | Care Team | Description | +--------+ + + + + | 04/28/ | [facility] | [facility] | | | | 2009 - | Encounter | MED CTR CANCER | | | | | | CENTER [facility] | | | | 05/06/ | | [place] | | | | 2009 | | [address] | | | | | | [phone] | | | +--------+ + + + [...]
--- OUTSIDE RECORDS SUMMARY | ~2020-03-26 | XMS | Encounter Summary ---
Demographics + + + | Address | [address] | | | [place] [address] | + + + | Home Phone | | + + + | Preferred Language | Unknown | + + + | Marital Status | | + + + | Jewish Affiliation | CAT | + + + | Race | or | + + + | Ethnic Group | Not or | + + + Author + + + | Author | [facility] [employer] [facility] | + + + | Organization | [facility] | + + + | Address | Unknown | + + + | Phone | Unavailable | + + + Support + + +---------+ + | Name | Relationship | Address | Phone | + + +---------+ + | Jamie Onofre | ECON | Unknown | | + + +---------+ + Care Team Providers + +------+ + | Care Creative Recruiter Name | Role | Phone | + +------+ + | Med Quintero MD | PCP | | + +------+ + Reason for Visit + +--------+ + | Reason | Onset | Comments | | | Date | | + +--------+ + | Lab findings, | 08/18/ | | | teaching, guidance, | 2020 | | | and counseling | | | + +--------+ + Encounter Details +--------+ + + + + | Date | Type | Department | Care Team | Description | +--------+ + + + + | 08/18/ | Telephone | [facility] | Elvia Shah, | Lab findings, | | 2019 | | [facility] | MD Mindy [address] | teaching, guidance, | | | | [address] | and counseling | | | | [address] | [place], [place] | | | | | [address], [address]th floor | [address] | | | | | [place], [place] | [phone] | | | | | [address] | | | | | | [phone] | | | +--------+ + + + [...] this encounter Miscellaneous Notes Telephone Encounter - Ana Cristina Navarro RN - 08/18/2019 4:17 PM PSTCall to patient Informed of BV results Reviewed treatment plan Patient agrees with plan but would like script to be faxed to [facility] er Patient denies further questions at this time Script rerouted elepho ne Encounter - Ana Cristina Navarro RN - 08/18/2019 3:31 PM PST Message Received: Today Message Contents Kaylin Owen MD [facility] Urogyn Triage Pool; Elvia Shah MD Vaginal metronidazole prescribed. Patient needs to be notified. Kaylin Owen MD, MS Female Pelvic Medicine & Reconstructive Surgery Fellow documented in this enc ounter Plan of Treatment Not on filedocumented as of this encounter Visit Diagnoses Not on filedocumented in this encounter"
--- OUTSIDE RECORDS SUMMARY | ~2020-03-26 | XMS | Encounter Summary ---
Demographics + + + | Address | [address] | | | [place] [address] | + + + | Home Phone | | + + + | Preferred Language | Unknown | + + + | Marital Status | | + + + | Amish Affiliation | CAT | + + + | Race | or | + + + | Ethnic Group | Not or | + + + Author + + + | Author | [facility] [employer] [facility] | + + + | Organization | [facility] | + + + | Address | Unknown | + + + | Phone | Unavailable | + + + Support + + +---------+ + | Name | Relationship | Address | Phone | + + +---------+ + | Jamie Onofre | ECON | Unknown | | + + +---------+ + Care Team Providers + +------+ + | Care Grinder And Plater Name | Role | Phone | + +------+ + | Med Quintero MD | PCP | | + +------+ + Encounter Details +--------+ + + + + | Date | Type | Department | Care Team | Description | +--------+ + + + + | 08/02/ | Lab | LAB CORE [address] | | | | 2019 | Requisition | [address] | | | | | | [place], [place] | | | | | | [address] | | | | | | [phone] | | | +--------+ + + + [...] | + +--------+ + + + | RAINBOW HOLD TUBE - | Routin | 08/02/2019 | | | | RED TOP | e | 11:50 AM | | | | | | PST | | | + +--------+ + + + | HIV RAPID, HIV-1/2 | Routin | 08/02/2019 | | Results for this | | AB, HIV-P24 | e | 11:50 AM | | procedure are in the | | AG,W/REFLEX | | PST | | results section. | | CONFIRMATION | | | | | | ED/OB/EHS ONLY | | | | | + +--------+ + + + | HEPATITIS B SURFACE | Routin | 08/02/2019 | | Results for this | | AG W/REFLEX IF | e | 11:50 AM | | procedure are in the | | INDICATED | | PST | | results section. | + +--------+ + + + | HEPATITIS C VIRUS | Routin | 08/02/2019 | | Results for this | | W/CONFIRMATION | e | 11:50 AM | | procedure are in the | | | | PST | | results section. | + +--------+ + + + documented in this encounter Results RAINBOW HOLD TUBE - RED TOP (08/02/2019 11:50 AM PST) + + | Specimen | + + | Blood - Blood | | (substance) | + + + + + + + | Performing | Address | City/State/Zipcode | Phone Number | | Organization | | | | + + + + + | [facility] | [address] | [place] [address] | | | SERVICES, CORE | [address] | | | + + + + + HEPATITIS C VIRUS W/CONFIRMATION (08/02/2019 11:50 AM PST) + + + + + + | Component | Value | Ref Range | Performed | Pathologist | | | | | At | Signature | + + + + + + | HEP C AB | Not Detected | Not Detected | [facility] | | | | | | LABORATORY | | | | | | SERVICES, | | | | | | CORE | | + + + + + + + + | Specimen | + + | Blood - Blood | | (substance) | + + + + + + + | Performing | Address | City/State/Zipcode | Phone Number | | Organization | | | | + + + + + | [facility] | [address] | [place] [address] | | | SERVICES, CORE | [address] | | | + + + + + HIV RAPID, HIV-1/2 AB, HIV-P24 AG,W/REFLEX CONFIRMATION ED/OB/EHS ONLY (08/02/2019 11:50 AM PST) + + + + + + | Component | Value | Ref Range | Performed | Pathologist | | | | | At | Signature | + + + + + + | HIV P24 | Nonreactive | Nonreactive | [facility] | | | ANTIGEN | | | LABORATORY | | | | | | SERVICES, | | | | | | CORE | | + + + + + + | RAPID | Nonreactive | Nonreactive | [facility] | | | HIV-1/2 AB | | | LABORATORY | | | | | | SERVICES, | | | | | | CORE | | + + + + + + + + | Specimen | + + | Blood - Blood | | (substance) | + + + + + + + | Performing | Address | City/State/Zipcode | Phone Number | | Organization | | | | + + + + + | [facility] | [address] | [place] [address] | | | SERVICES, CORE | [address] | | | + + + + + HEPATITIS B SURFACE AG W/REFLEX CONFIRMATION IF INDETERMINATE RESULTS (08/02/2019 11:50 AM PST) + + + + + + | Component | Value | Ref Range | Performed | Pathologist | | | | | At | Signature | + + + + + + | HEPATITIS B | | | [facility] | | | SURFACE | | | LABORATORY | | | AG, SERUM | | | SERVICES, | | | | | | CORE | | + + + + + + | HEP B | Not Detected | Not Detected | [facility] | | | SURFACE AG | | | LABORATORY | | | | | | SERVICES, | | | | | | CORE | | + + + + + + + + | Specimen | + + | Blood - Blood | | (substance) | + + + + + + + | Performing | Address | City/State/Zipcode | Phone Number | | Organization | | | | + + + + + | [facility] | [address] | [place] [address] | | | SERVICES, CORE | [address] | | | + + + + + documented in this encounter Visit Diagnoses Not on filedocumented in this encounter"
--- OUTSIDE RECORDS SUMMARY | ~2020-03-26 | XMS | Encounter Summary ---
Demographics + + + | Address | [address] | | | [place] [address] | + + + | Home Phone | | + + + | Preferred Language | Unknown | + + + | Marital Status | | + + + | Synagogue Affiliation | CAT | + + + | Race | or | + + + | Ethnic Group | Not or | + + + Author + + + | Author | [facility] [employer] [facility] | + + + | Organization | [facility] | + + + | Address | Unknown | + + + | Phone | Unavailable | + + + Support + + +---------+ + | Name | Relationship | Address | Phone | + + +---------+ + | Jamie Onofre | ECON | Unknown | | + + +---------+ + Care Team Providers + +------+ + | Care Trade Manager Name | Role | Phone | + +------+ + | Med Quintero MD | PCP | | + +------+ + Encounter Details +--------+ + + + + | Date | Type | Department | Care Team | Description | +--------+ + + + + | 08/02/ | Procedure | [facility] | | | | 2020 | Pass [facility] | [facility] | | | | | | Center Admitting | | | | | | Desk Located on the | | | | | | 4th floor [address] | | | | | | [address], | | | | | | [place] [address] | | | +--------+ + + + [...]
--- OUTSIDE RECORDS SUMMARY | ~2020-03-26 | XMS | Encounter Summary ---
Demographics + + + | Address | [address] [place] [address] | | | [place] [address] | + + + | Home Phone | | + + + | Preferred Language | Unknown | + + + | Marital Status | | + + + | Episcopalian Affiliation | Unknown | + + + | Race | White | + + + | Ethnic Group | Not or | + + + Author + + + | Author | [facility] | | | and [place] | + + + | Organization | [facility] | | | and [place] | + + + | Address | Unknown | + + + | Phone | Unavailable | + + + Support + + + + + | Name | Relationship | Address | Phone | + + + + + | Jamie Sheoships | ECON | [address] | | | | | [place] [address] | | + + + + + Care Team Providers + +------+ + | Care Director Multimedia Name | Role | Phone | + +------+ + PCP | Unavailable | + +------+ + Encounter Details +--------+ + + + + | Date | Type | Department | Care Team | Description | +--------+ + + + + | 06/09/ | [facility] | [facility] | | | | 2008 - | Encounter | MED CTR CANCER | | | | | | [facility] [address] | | | | 07/06/ | | [place] | | | | 2008 | | [address] | | | | | | [phone] | | | +--------+ + + + [...]
--- OUTSIDE RECORDS SUMMARY | ~2020-03-26 | XMS | Encounter Summary ---
Demographics + + + | Address | [address] | | | [place] [address] | + + + | Home Phone | | + + + | Preferred Language | Unknown | + + + | Marital Status | | + + + | Tenriism Affiliation | CAT | + + + | Race | or | + + + | Ethnic Group | Not or | + + + Author + + + | Author | [facility] [employer] [facility] | + + + | Organization | [facility] | + + + | Address | Unknown | + + + | Phone | Unavailable | + + + Support + + +---------+ + | Name | Relationship | Address | Phone | + + +---------+ + | Jamie Onofre | ECON | Unknown | | + + +---------+ + Care Team Providers + +------+ + | Care River Expedition Guide Name | Role | Phone | + +------+ + | Med Quintero MD | PCP | | + +------+ + Encounter Details +--------+ + + + + | Date | Type | Department | Care Team | Description | +--------+ + + + + | 08/02/ | Lab | LAB CORE [address] | | | | 2019 | Requisition | [address] | | | | | | [place], [place] | | | | | | [address] | | | | | | [phone] | | | +--------+ + + + [...]
--- OUTSIDE RECORDS SUMMARY | ~2020-03-26 | XMS | Encounter Summary ---
Demographics + + + | Address | [address] | | | [place] [address] | + + + | Home Phone | | + + + | Preferred Language | Unknown | + + + | Marital Status | | + + + | Methodist Affiliation | CAT | + + + | Race | or | + + + | Ethnic Group | Not or | + + + Author + + + | Author | [facility] [employer] [facility] | + + + | Organization | [facility] | + + + | Address | Unknown | + + + | Phone | Unavailable | + + + Support + + +---------+ + | Name | Relationship | Address | Phone | + + +---------+ + | Jamie Onofre | ECON | Unknown | | + + +---------+ + Care Team Providers + +------+ + | Care Refuse Driver Name | Role | Phone | + +------+ + | Med Quintero MD | PCP | | + +------+ + Encounter Details +--------+ + + + + | Date | Type | Department | Care Team | Description | +--------+ + + + + | 08/18/ | Orders Only | [facility] | Kaylin Owen, | | | 2020 | | [facility] | [address] | | | | | [address] | | | | | [address] | [place], [place] | | | | | [place] [address] [place] [address] | [address] | | | | | [place], [place] | [phone] | | | | | [address] | | | | | | [phone] | | | +--------+ + + + [...] this encounter Miscellaneous Notes Telephone Encounter - Kaylin Owen MD - 08/18/2019 2:43 PM PSTSymptoms and BD Affirm s wab consistent with BV. Rx for 5 days of daily metronidazole gel prescribed. Patient needs t o be notified. She should call us if vaginal discharge and discomfort don't improve after tr eatment. Kaylin Owen MD, MS Female Pelvic Medicine & Reconstructive Surgery Fellow documented in this en counter Plan of Treatment Not on filedocumented as of this encounter Visit Diagnoses Not on filedocumented in this encounter"
--- OUTSIDE RECORDS SUMMARY | ~2020-03-26 | XMS | Encounter Summary ---
Demographics + + + | Address | [address] | | | [place] [address] | + + + | Home Phone | | + + + | Preferred Language | Unknown | + + + | Marital Status | | + + + | Episcopalian Affiliation | CAT | + + + | Race | or | + + + | Ethnic Group | Not or | + + + Author + + + | Author | [employer] | + + + | Organization | [facility] | + + + | Address | Unknown | + + + | Phone | Unavailable | + + + Support + + +---------+ + | Name | Relationship | Address | Phone | + + +---------+ + | Jamie Onofre | ECON | Unknown | | + + +---------+ + Care Team Providers + +------+ + | Care Transit Police Officer Name | Role | Phone | + [...] + + + + | 08/02/ | Hospital | Outpatient Care | Elvia Shah, | | | 2019 - | Encounter | Unit at [facility] [address] | [address] | | | | | [place]oop [place] Mailcode: | [address] | | | 08/03/ | | [facility] | [place], [place] | | | 2019 | | and [address]k, | [address] | | | | | [address] | [phone] | | | | | [place], [place] | | | | | | [address] | | | | | | [phone] | | | +--------+ + + + [...] + + + | Blood Pressure | 140/70 | 08/03/2019 8:30 AM | | | | | PST | | + + + + + | Pulse | 57 | 08/03/2019 8:30 AM | | | | | PST | | + + + + + | Temperature | 36.5 C (97.7 F) | 08/03/2019 6:30 AM | | | | | PST | | + + + + + | Respiratory Rate | 15 | 08/03/2019 6:30 AM | | | | | PST | | + + + + + | Oxygen Saturation | 98% | 08/03/2019 8:30 AM | | | | | PST | | + + + + + | Inhaled Oxygen | - | - | | | Concentration | | | | + + + + + | Weight | 62.6 kg (138 lb) | 08/02/2019 9:36 AM | | | | | PST | | + + + + + | Height | 154.9 cm (5' 1") | 08/02/2019 9:36 AM | | | | | PST | | + + + + + | Body Mass Index | 26.07 | 08/02/2019 9:36 AM | | | | | PST | | + + + + + documented in this encounter Discharge Summaries Renae Haynes MD - 08/03/2019 6:48 AM PSTFormatting of this note might be different fr om the original. UROGYNECOLOGY DISCHARGE SUMMARY Admitting Physician (Attending): Elvia Shah MD Discharging Physician(s): Elvia Shah MD Date of Admission: 08/02/2019 Date of Discharge: 08/03/2019 Principal Final Diagnoses 1. Stage II recurrent vaginal vault prolapse 2. Cystocele, midline 3. Rectocele Principal Procedures 1. Exam under anesthesia 2. Complete colpocleisis/vaginectomy 3. Perineorrhaphy 4. Cystoscopy 5. General anesthesia Reason for Admission, Significant Findings, Treatment and Complications Verena Onofre is a 69 yo with Stage II recurrent vaginal vault prolapse, rectocele, a nd cystocele. She was admitted on 08/02/19 for planned surgery. Medical history was also nota ble for hypertension. She underwent an uncomplicated complete colpocleisis/vaginectomy, caren neorrhaphy, and cystoscopy. See operative note for details. Estimated blood loss was <100 mL . Post-operatively, the patient did well. On POD#1, the patient was ambulating, voiding, tole rating orals, and her pain was controlled. She was meeting all milestones for discharge and was discharged to home in a stable condition. She planned to follow up in 2w with Dr. Elizabeth hudson for routine post-operative care. Day of Discharge Exam Last Vitals: BP 132/63 (BP Location: Right upper arm, Patient Position: Lying on back) | P ulse 55 | Temp 36.5 C (97.7 F) (Oral) | Resp 15 | Ht 1.549 m (5' 1") | Wt 62.6 kg (1 38 lb) | SpO2 97% | BMI 26.07 kg/m | BSA 1.64 m 24 Hour Vital Min/Max: Systolic (24hrs), Av , Min:116 , Max:159 Diastolic (24hrs), Av, Min:59, Max:80 Pulse Min: 51 Max: 91 Temp Min: 36.5 C (97.7 F) Max: 36.8 C (98.2 F) Resp Min: 10 Max: 23 SpO2 Min: 94 % Max: 100 % Intake/Output Summary (Last 24 hours) at 08/03/2019 0719 Last data filed at 08/03/2019 0609 Gross per 24 hour Intake 4177.5 ml Output 2800 ml Net 1377.5 ml UOP: 136 mL/hr overnight General Appearance: Lying in bed, comfortable, NAD Chest: Regular rate, normal work of breathing on room air Abdomen: Soft, minimally tender, no rebound or guarding Extremities: WWP, NT, no edema bilateral lower extremities Neuro: Alert and oriented, no focal deficits. Psych: Appropriate mood and affect. Diet Regular Activity 1. No lifting of more than a 5-10 lbs for 12 weeks 2. Nothing in your vagina (douching, tampons, intercourse) for 12 weeks 3. Walking and going up and down stairs is ok. No strenuous physical activity 4. No soaking in the bath tub for 12 weeks. Showers are ok 5. No driving for the next 2 weeks and/or as long as you are on narcotics like oxycodone To contact your provider, please call the [facility] clinic at [phone] during daytime hours. During evening or weekend hours, please call the [facility] paging oper ator at [phone] and ask for the Recovery Specialist resident on-call. DISCHARGE MEDICATIONS Medication List START taking these medications acetaminophen 325 mg Tab Commonly known as: TYLENOL Take 1-2 tablets by mouth every four hours as needed. docusate sodium 100 mg Cap Commonly known as: COLACE Take 1 capsule by mouth two times daily. ibuprofen 600 mg Tab Commonly known as: MOTRIN Take 1 tablet by mouth every eight hours as needed. oxyCODONE (immediate release) 5 mg Tab Commonly known as: ROXICODONE Take 1-2 tablets by mouth every four hours as needed for moderate pain (unresponsive to non -opioid medication). CONTINUE taking these medications allopurinoL 300 mg Tab Commonly known as: ZYLOPRIM Take 300 mg by mouth once daily. amLODIPine 10 mg Tab Commonly known as: NORVASC Take 10 mg by mouth once daily. aspirin EC 81 mg Tbec Take 81 mg by mouth once daily. omeprazole 20 mg Cpdr Commonly known as: PRILOSEC Take 20 mg by mouth once daily. Discharging Provider: Renae Haynes MD Discharging Attending: Elvia Shah MD Associated attestation - Elvia Shah MD - 08/03/2019 8:13 AM PSTI saw the patient a nd agree with the discharge and note. documented in this encounter Discharge Instructions Discharge Instr - Day Procedure Instructions Renae Haynes MD - 08/03/2019 8:36 AM PST Post-surgical Discharge Instructions: Twelve Week Limitations for Major Reconstructive Surge ry You have undergone an extensive reconstructive pelvic surgery and it is now your turn to pl ay a pivotal role in the success of your surgical treatment. We know that it will take appro ximately twelve weeks for the tissues that have been operated on to heal to 80% of their fin al strength. It may take up to six months to achieve 90% strength and full wound remodeling continues for up to two years. Based on this, we recommend that our patients restrict their activities for twelve weeks following surgery. By following these recommendations we would e xpect to get good healing of the surgical site and achieve a good, long-lasting repair of yo ur problem. Your Recovery You can expect to feel better and stronger each day, although you may need pain medicine fo r a week or two. You may get tired easily or have less energy than usual. This may last for several weeks after surgery. Some people may notice a slight depression after surgery. This typically will resolve on its own, but please notify us if it does not. You will probably no harvey that your belly is swollen and puffy. This is common. The swelling will take several we eks to go down. In addition, if you notice excess bleeding, drainage, or redness you should contact the office. If you have any questions at any time, please do not hesitate to contact us. Routine questions and prescription refills can be handled best during regular office ho urs at the office nurse telephone number above. For urgent or emergent issues, one of our ogynecologic team is nutritional health coach at all times through the page muck operator. Assuming that you are recovering fine at home, we would like to see you back in the office at two weeks and t welve weeks after your surgery, or more often if necessary. It is important to avoid lifting while you are recovering so that you can heal. This care sheet gives you specific informati on about what to expect at home and how to care for yourself following surgery. Following th e steps below to get better as quickly as possible. Activity - Rest when you feel tired. Getting enough sleep will help you recover. - Try to walk each day. Start by walking a little more than you did the day before. Bit by bit, increase the amount you walk. Walking boosts blood flow and helps prevent pneumonia and constipation. - You may shower. Pat any incisions dry. Do not take a bath for the first 2 weeks, or until we tell you it is okay. - Nothing in the vagina for approximately 2 to 3 months post-operatively. We will tell you when you can have sex again. Unless we have informed you otherwise, you may remove yourself form the no-lifting and nothing in the vagina restriction a week or two prior to coming in f or your three month visit. - You can drive again when you are no longer taking narcotic pain pills and can feel confid ent in an emergency (sudden stopping for example). Major risk factors for tearing down the surgical repair in the immediate post-operative per iod are constipation and heavy lifting. Any activity that increases the pressure within your abdominal cavity may do this. Therefore, we recommend: - You probably need to take 6-12 weeks off from work. It depends on the type of work you do and how you feel. - Avoid lifting anything that would make you strain. Do not lift anything heavier than 5-8 pounds for twelve weeks. This may include a child, heavy grocery bags and milk containers, a heavy briefcase or backpack, cat litter or dog food bags, or a vacuum reed cleaner. - Limit your exercise activities such as jogging, aerobics, swimming and biking - Resume Kegel exercises immediately following surgery Diet - You can eat your normal diet. If your stomach is upset, try bland, low-fat foods like marty in rice, boiled chicken, toast, and yogurt. - Drink plenty of fluids (unless your doctor tells you otherwise). - You may notice that your bowel movements are not regular right after your surgery. This i s common. Try to avoid constipation and straining with bowel movements. Constipation - Take stool softeners as prescribed for twelve weeks post-operatively - It is important to remember that Colace will NOT help move your bowels. It will only help to keep your stool soft. - Drink plenty of fluids, enough so that your urine is light yellow or clear like water. If you have kidney, heart, or liver disease and have to limit fluids, talk to your doctor befo re you increase the amount of fluids your drink. - Include high-fiber foods, such as fruits, vegetables, beans, and whole grains, in your di et each day. - Take a fiber supplement, such as Citrucel or Metamucil, every day. Start with a small dos e and very slowly increase the dose. - If you have not had a bowel movement by 3 days following surgery, please take a dose of e ither Milk of Magnesia or Miralax, available over the counter at your drugstore. We may chandan mmend that you take one or both of these laxatives every day starting when you get home. Medicines - Take pain medicines exactly as directed. - Resume all of your prior medication once you are at home, unless otherwise directed by us or your other physician(s). - If you need refills on this medication after you are home, please call the office during regular business hours. - If you are not taking a prescription pain medicine, ask us if you can take an over-the-co unter medicine. - Do not take your pain medication with alcoholic drink. - Do not drive while taking narcotic pain medication - If we prescribed antibiotics, take them as directed. Do not stop taking them just because you feel better. You need to take the full course of antibiotics. - If you think your pain medicine is making you sick to your stomach: 1) Take your medicine after meals (unless we told you not to); 2) Ask us for a different pain medicine. Example of how to alternate medications: 8AM: Oxycodone 1-2 tablets (try to take with food) 12PM: Tylenol (325-600mg) or Ibuprofen (400-600mg) 4PM: Oxycodone 1-2 tablets 8PM: Tylenol or Ibuprofen Fisher points about pain medication: DO NOT take Tylenol more often than every 4 hours. Mannie greer Tylenol dose over 24 hours is 4000mg. 4 Nausea Patients often experience nausea after surgery. This is often related to anesthesia and slo w return of bowel function. Sometimes slow sips of fluids/saltine crackers/ small meals rath er than large ones will help relieve nausea. If you cannot keep anything down and feel you n eed anti-nausea medication please call our clinic or provider on-call. Incision Care - If you have strips of tape on the incision leave the tape on for a week or until it falls off. - Wash the area daily with warm, soapy water, and pat it dry. Don t use hydrogen peroxide or alcohol which can slow healing. You may cover the area with a gauze bandage if it weeps or rubs against clothing. - Keep the area clean and dry. - You may shower after surgery, please do not take tub baths or go swimming until we have g aliciaen you permission to resume these activities. When should you call for help? Call 911 anytime you think you may need emergency care. For example: - You passed out (lost consciousness) - You have sudden chest pain and shortness of breath. - You have severe pain in your belly. Call us now or seek immediate medical care if: - You have heavy bright red vaginal bleeding that soaks one or more pad in an hour. - You have very foul-smelling discharge from your vagina - You cannot keep any fluids down. - You have signs of infection, such as: drainage or redness of the incisions. If you are going home with a catheter in your bladder, you will receive special instruction s about how to manage it. We hope that these instructions will be useful to you. Please ask if there are any question s you have that are not covered by these instructions. Your successful surgical procedure an d recovery is a joint effort. We will need your help to see that you recuperate and heal malia l. documented in this encounter Medications at Time of Discharge + + + +---------+ + + | Medication | Sig | Dispensed | Refills | Start | End Date | | | | | | Date | | + + + +---------+ + + | acetaminophen | Take 1-2 tablets by | 30 | 2 | 08/03/19 | | | (TYLENOL) 325 mg | mouth every four | tablet | | 20 | | | oral tablet | hours as needed. | | | | | + + + +---------+ + + | allopurinol 300 mg | Take 300 mg by mouth | | 0 | | | | oral tablet | once daily. | | | | | + + + +---------+ + + | amLODIPine 10 mg | Take 10 mg by mouth | | 0 | | | | oral tablet | once daily. | | | | | + + + +---------+ + + | aspirin EC 81 mg | Take 81 mg by mouth | | 0 | | | | oral tablet,delayed | once daily. | | | | | | release (DR/EC) | | | | | | + + + +---------+ + + | docusate sodium | Take 1 capsule by | 30 | 2 | 08/03/19 | | | 100 mg oral | mouth two times | capsule | | 20 | | | capsuleIndications: | daily. | | | | | | Vaginal vault | | | | | | | prolapse after | | | | | | | hysterectomy | | | | | | + + + +---------+ + + | ibuprofen 600 mg | Take 1 tablet by | 30 | 2 | 08/03/19 | | | oral tablet | mouth every eight | tablet | | 20 | | | | hours as needed. | | | | | + + + +---------+ + + | omeprazole 20 mg | Take 20 mg by mouth | | 0 | | | | oral capsule,delayed | once daily. | | | | | | release(DR/EC) | | | | | | + + + +---------+ + + | oxyCODONE | Take 1-2 tablets by | 20 | 0 | 08/03/19 | | | (immediate release) | mouth every four | tablet | | 20 | | | 5 mg oral | hours as needed for | | | | | | tabletIndications: | moderate pain | | | | | | Vaginal vault | (unresponsive to | | | | | | prolapse after | non-opioid | | | | | | hysterectomy | medication). | | | | | + + + +---------+ + + documented as of this encounter H&P Notes Neel Schmidt MD - 08/02/2019 10:04 AM PSTI have examined the patient and reviewed the His tory and Physical and have confirmed that it is accurate and current. Neel Schmidt MD Kaylin Bustilol MD - 0 07/16/2019 4:00 PM PSTHPI: Ms. Onofre is a G P reporting the following problems: Pelvic prolapse Female Pelvic Medicine and Reconstructive Surgery Follow-Up/ Pre-op Visit/ Urodynamics Verena Onofre is a 69 y.o. [place] woman with h/o breast cance r s/p lumpectomy and XRT, GERD, prediabetes, HTN who presents for pre-operative visit. She has recurrent vaginal vault prolapse with three prior failed prolapse repairs (no true apical suspensions however): 1990s:FAROOQ, BSO, needle suspension and anterior repair 1999: anterior/posterior repair with enterocele resection 2011: rectocele (with dermis reinforcement)/cystocele repair with prolene mesh anteriorly a nd TOT sling POPQ 05/05/19 0 / 0 / -1 6 / -1 /-1 / NA She was last seen 06/16/19 and decided to proceed with colpocleisis instead of sacral colpo pexy as she is not currently sexually active (and hasn't been for 7 years) and wanted the durable prolapse repair. Presents today for UDS, cystoscopy, pre-op appointment to sign consents Procedure: complete colpocleisis, perineorrhaphy, possible anterior repair, possible fill manager ior repair, possible trans-vaginal taping mid-urethral sling, cystourethroscopy scheduled on 08/02/[address] Shah Urodynamics: today [facility] visit: today at 1:20 PM She today reports she is ready to proceed with surgery for her prolapse. Feels comfortable with decision for colpocleisis. Reports sometimes has urgency and UUI. Also sometimes feels FAVIOLA. The past medical history, surgical history, family history, social history, and current med ications updated in [facility]. PHYSICAL EXAM BP 151/70 | Pulse 66 | Temp 36.4 C (97.6 F) (Oral) | SpO2 99% HEIGHT: 5ft 2ins. BMI 0kg/m2 GENERAL: Healthy Appearing, No acute distress NECK: No thyromegaly RESPIRATORY: Breathing without difficulty CARDIOVASCULAR: No pedal edema SKIN: Warm and dry NEUROLOGIC GAIT: Normal SACRAL SENSATION: Grossly Intact AFFECT: Reserved GENERAL PELVIC EXAM EXTERNAL GENITALIA: Atrophic changes of vulva and introitus Normal External Genitalia URETHRA: Urethral caruncle present VAGINA normal diameter BLADDER FUNCTION EVALUATION TESTS DIPSTICK URINALYSIS LEUKOCYTES: neg NITRITES: neg PROCEDURE: CYSTOSCOPY A team pause was held. COnsent was obtained. If images were obtained, they have been uploa ded into the media tab in [facility]. INDICATIONS FOR CYSTOSCOPY: Hematuria ANESTHESIA FOR CYSTOSCOPY: 2% Xylocaine Jelly to Urethra 2% Intravesical Lidocaine CYSTOSCOPE USED: Flexible Olympus SN [id number] PROCEDURE: Cystoscope was removed FINDINGS ON CYSTOSCOPY: Normal patent ureters Hyperemic bladder mucosa No mesh or suture Urethra also appeared atraumatic and coapted well PROCEDURE: URODYNAMICS A spontaneous uroflow was performed with a flowmeter and no instrumentation in private. VOLUME VOIDED (ML): 10 VOID TIME (SEC): 9 FLOW TIME (SEC): 5.2 MAXIMUM FLOW RATE (ML/SEC): 2.9 CATHETERIZED POST VOID RESIDUAL (ML): 10 VOID STREAM Continuous + Smooth A complex multichannel CMG was performed in the sitting position at 45 degrees using air ch arged catheters with a retrograde fill rate of 100 ml/min or less. Water was at room tempera ture. URINE DIPSTICK: LEUKOCYTE ESTERASE neg URINE DIPSTICK: NITIRITES neg VOLUME AT FIRST DESIRE (ML) 500 VOLUME AT STRONG DESIRE (ML) 508 BLADDER CAPACITY (ML) 584 STRESS LEAK OCCURRED WITH VALSALVA OR COUGH? No UNINHIBITED DETRUSOR CONTRACTIONS? No BLADDER COMPLIANCE normal BLADDER SENSATION normal BLADDER CAPACITY NORMAL? normal We performed Valsalva [place] Pressures at 150 ml bladder volume and again at 300 ml (or capacity). The following are findings: LEAK AT 150 ML No leak VLPP VESICAL PRESSURE (CM H2O) AT 150 ML 101 VLPP VESICAL PRESSURE CHANGE FROM BASELINE AT 150 ML BLADDER VOLUME (CM H2O) 95 LEAK AT HIGHER BLADDER VOLUME? No leak BLADDER VOLUME FOR 2ND VLPP (ML): 584 VLPP VESICAL PRESSURE AT HIGHER BLADDER VOLUME (CM H2O) 100 VLPP VESICAL PRESSURE CHANGE FROM BASELINE AT HIGHER BLADDER VOLUME (CM H2O) 94 We performed urethra pressure profiles at rest and with coughing at maximal bladder capacit y. The catheter was pulled at a rate of 1 mm/sec. The following are findings: MAXIMUM URETHRAL CLOSURE PRESSURE (CM H2O): 94 STRESS COUGH PROFILE LEAK?: no leak TRANSMISSION PROFILE?: positive transmission We performed a voiding pressure study using vesical, urethral and abdominal pressure transd ucers. The following are findings: VOIDING MECHANISM: detrusor contraction, urethral relaxation and valsalva OPENING DETRUSOR PRESSURE (CM H2O): -6 MAXIMUM DETRUSOR PRESSURE (CM H2O): 31 DETRUSOR PRESSURE AT MAXIMUM FLOW RATE (CM H2O): 6.9 URINE FLOW PATTERN DURING PRESSURE/VOLUME STUDY: Intermittent COMMENTS: Study performed with one scopette in the vagina supporting prolapse. No urodynamic FAVIOLA seen , including with patient standing at max capacity with catheter removed with and without pro lapse support. No DO. Patient quite uncomfortable appearing during exam though she would not agree this was the case - affect was consistent with history of trauma. Final Urodynamic Impressions: URETHRAL FUNCTION: Normal sphincter function URETHRAL MOBILITY: Visibly elevated or fixed DETRUSOR OVERACTIVITY?: No VOIDING DYSFUNCTION?: Normal Voiding function Images of the Urodynamic study can be found in the Media tab. ASSESSMENT SYMPTOMS DISCUSSED Introital Bulging PHYSICAL FINDINGS Prolapse- Vaginal Vault after Hysterectomy DATA/ LAB TESTS REVIEWED/ORDERED Previous Records Reviewed & Summated Post Void Residual Urinalysis POPQ Uroflow CMG Urethral Pressure Profile Voiding Study N39.46 Mixed incontinence RECOMMENDATIONS Major Surgery Recommended (procedures below): Colpocleisis, Complete 33406 Perineorrhaphy/Perineoplasty 21538 Ant & Post colporrhaphy 22237 Cystoscopy 70128 PAR held, the following issues discussed: Bleeding (and need for blood transfusion) Infection Injury to urinary tract Injury to bowels No change in symptoms New onset of bladder problems Change in bowel habits Need for catheter Nerve stimulation/pain Return of prolapse Need for laparotomy Surgical team handout reviewed Postop surgical restrictions instructions handout given Ms. Onofre is a 69 yo woman with symptomatic recurrent vaginal vault prolapse. UDS today showed no occult FAVIOLA despite her report this sometimes feels like this happens at home. No anti-incontinence procedure recommended. Cystoscopy showed an irritated bladder with no expo sed mesh. Plan: - trauma informed care. Patient is quite soft-spoken and does not express pain or discomfor t so care should be taken, especially in the postoperative period, to carefully assess for o bjective signs of pain or problems as she may not be forthcoming with these - complete colpocleisis, possible perineorrhaphy, possible APR, cystoscopy on 08/02. Consent signed today. - ERAS procedure. Counseled patient today on clear liquids until 2 hours prior to surgery a s she reported no history of acid reflux to me, however on chart review she does have this. attempted to call patient to change to 4 hours prior to surgery but no voicemail reached. En counter routed to spool maker to call patient next week and clarify clear liquids encouraged fro m midnight until 4 hours before surgery, when she needs to be NPO. - she will stay at [facility] overnight. Patient will likely stay in the area one more day before driving home >200 miles. She is going to assess if family member will accompany, though of n ote her family has a young baby with special needs coming to [place] frequently so she may be coming on her own. She declined speaking with GRETEL Nair about this issue as she p refers to handle it herself. - urine micro and culture given mucosa irritation today Patient seen and discussed with Dr. Shah, attending physician This was a 40 minute visit, over half of which was spent in consultation and coordination o f care regarding the patient's surgical plan for prolapse. Kaylin Owen MD, MS Female Pelvic Medicine & Reconstructive Surgery Fellow documented in this en counter Miscellaneous Notes Plan of Care - Jennifer Street RN - 08/03/2019 10:42 AM PST.Nursing Discharge Note Discharge Date: 08/03/2019 Additional Discharge Information: Pt discharging today. AFVSS. Tolerating PO. Voiding, p assed her fill and pull trial. +Flatus. Ambulating. Educated in all discharge instruction s and provided written handouts to support all education. Also educated pt in signs/symptom s to watch for and when to call MD. Pt verbalized understanding of all education, no furthe r questions upon dc. Discharge Nurse: Jennifer Street RN andoff - Bhavani Street RN - 08/02/2019 4:17 PM PSTNursing Handoff [facility] N[facility]SE HANDOFF: [facility] hospital course events: Complete colpocleisis/vaginectomy Perineorrhaphy Cystoscopy (Dr. Schmidt 08/02/19) COMFORT/ANXIETY/BEHAVIOR Patient/Family Target: Pt will report pain is managed at an acceptable level Progress to Target: No Change As evidenced by: Verena does not really rate her pain on a scale. Really has to be prompted to do so and ev en then it doesn't seem to be an accurate pain level based on her non-verbal cues. Pt seems more stoic. Appeared more comfortable overall after IV Morphine administered as per SEP. She is also on scheduled acetaminophen PO and IV ketoralac as per SEP. NURSING ASSESSMENT & RECOMMENDATIONS FORWARD Nursing Assessment of Patient Stability Risk: Moderately stable Recommendations Forward: Nguyen intact, appears to have fill and pull orders for tomorrow am Walked with hand-hold assist of 2-people, appeared very painful and unsteady because of thi s. Pt does not tend to complain or rate her pain on a scale, had to go more by non-verbal c ues and discussions about mild, moderate or severe pain. MIVF at 75 mL/hr Incision not visible, draining small amount of blood from vagina, caren-pad in place. Barriers to discharge: Anticipate dc tomorrow p Note - Ester Schmidt MD - 08/02/2019 12:44 PM PSTFormatting of this note might be different from the zeeshan l. 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 Estimated Blood Loss: < 100ml Drains: * No LDAs found * Specimens None Implants/Grafts None Procedure Description: She was then taken to the OR where anesthesia was administered without difficulty. Prior to the beginning of the procedure, the team paused to verify the patient s identity , the procedure to be performed (in accordance with the consent,) and the correct side/site. All relevant images and results were properly labeled and displayed. We addressed antibioti c prophylaxis and fluids for irrigation as applicable to this patient. Any safety precaution s were addressed. She was prepped and draped in the usual sterile fashion in a neurologicall y neutral position with Osmel stirrups and arms were supported with arm rests. A Nguyen lorraine ter was placed in the bladder for continuous drainage. The vagina cuff was grasped with Allis clamps and the posterior wall of the vagina was inje cted with 0.25% marcaine with epinephrine. A transverse incision was made with a scalpel be tween the Allis clamps. The vaginal mucosa was dissected off of the underlying fascia using metzenbaum scissors. This was done bilaterally and towards the perineum until the vaginal epithelium of the entire posterior wall of the vagina had been successfully removed. It was then sharply removed using the metzenbaum scissors. The anterior wall of the vagina was gr asped with Allis clamps and injected with dilute vasopression. A vertical incision was made . The vaginal epithelium was dissected off of the underlying tissues and then sharply remov ed. We did encounter some permanent suture remnant from her prior surgery during this disse ction. At this point, the skin of the entire vagina had been removed up to the hymen. We then performed a bilateral pudendal block using 0.25% marcaine with epinephrine. The anterior defect was much larger than the posterior defect and so a midline plication of the anterior wall was performed using interrupted sutures of 2-0 vicryl. The anterior and posterior wall was then plicated together using interrupted 0-vicryl sutures. The was done until the prolapse was reduced behind the hymen. We then turned our attention to the perineorrhaphy. The hymen was grasped with Allis clamp s and vaginal mucosa was injected with 0.25% marcaine with epinephrine. The vaginal epithel ium was removed sharply with the scalpel. Using three separate sutures of 0-vicryl the caren neorrhaphy was completed. The vaginal epithelium was then reapproximated with 2-0 vicryl in a running fashion. Cystoscopy was performed with a 70-degree cystoscope. There was no evidence of foreign bod y or trauma to the bladder. Brisk efflux of urine was noted bilaterally from each ureteral orifice. The cystoscope was removed and the nguyen catheter replaced. Rectal exam performed confirmed no suture material and no rectal injury. The patient tolerated the procedure well. Sponge, needle, and instrument counts were corre ct. The patient was awakened from anesthesia and taken to the recovery area in stable condit ion. Dr. Shah was present and scrubbed throughout the procedure. Neel Schmidt MD, FPMRS Fellow Associated attestation - Elvia Shah MD - 08/03/2019 8:12 AM PSTI was scrubbed and present for the entire procedure. The perineorrhaphy re- approximated the bulbocavernous and transverse perineal muscles. Brief Op Note - Neel Schmidt MD - 08/02/2019 12:09 PM PSTFo rmatting of this note might be different from the original. 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 Specimens None Implants/Grafts None Complications: N/A Neel Schmidt MD documented in this enco unter Plan of Treatment + +------+--------+ + + | Name | Type | Priori | Associated Diagnoses | Order Schedule | | | | ty | | | + +------+--------+ + + | TYPE AND SCREEN | Lab | Routin | Vaginal vault | Expected: | | | | e | prolapse after | 07/28/2019, Expires: | | | | | hysterectomy | 08/28/2020 | + +------+--------+ + + documented as of this encounter Procedures + +--------+ + + + | Procedure Name | Priori | Date/Time | Associated Diagnosis | Comments | | | ty | | | | + +--------+ + + + | COLPOCLEISIS | Electi | 08/02/2019 | N81.11 - | | | | ve | 10:18 AM | Cystocele, midline | | | | Surgic | PST | N81.6 - Rectocele | | | | al | | N99.3 - Prolapse of | | | | | | vaginal vault after | | | | | | hysterectomy N39.3 | | | | | | - Stress | | | | | | incontinence | | | | | | (female) (male) | | | | | | T83.721 - Exposure | | | | | | of vaginal mesh and | | | | | | other prosthetic | | | | | | materials into | | | | | | vagina | | + +--------+ + + + | INTRAPROCEDURE | Routin | 08/02/2019 | | Results for this | | IMAGING | e | 9:29 AM | | procedure are in the | | | | PST | | results section. | + +--------+ + + + | CARDIOLOGY | | 08/02/2019 | | Results for this | | | | 12:00 AM | | procedure are in the | | | | PST | | results section. | + +--------+ + + + documented in this encounter Results INTRAPROCEDURE IMAGING (08/02/2019 9:29 AM PST) + + | Specimen | + + | | + + + + + | Narrative | Performed At | + + + | See admission or procedure notes for details of any intraprocedure | [facility] | | images obtained. | RADIOLOGY | + + + + +---------+ + + | Performing | Address | City/State/Zipcode | Phone Number | | Organization | | | | + +---------+ + + | [facility] | | | | + +---------+ + + CARDIOLOGY (08/02/2019 12:00 AM PST) + + + | Narrative | Performed At | + + + | | | + + + documented in this encounter Visit Diagnoses + + | Diagnosis | + + | Vaginal vault prolapse after hysterectomy - Primary Prolapse of vaginal vault after | | hysterectomy | + + documented in this encounter Administered Medications + +--------+ + +------+------+ | Medication Order | MAR | Action | Dose | Rate | Site | | | Action | Date | | | | + +--------+ + +------+------+ | acetaminophen (TYLENOL) tablet | Given | 08/02/19 | 1,000 mg | | | | 1,000 mg 1,000 mg, oral, ONCE, | | 9:57 | | | | | dose, 08/02/19 at 0930 | | AM PST | | | | + +--------+ + +------+------+ +---+---+ | | | +---+---+ + +-------+ + +---+---+ | acetaminophen (TYLENOL) tablet | Given | 08/03/19 | 1,000 mg | | | | 1,000 mg 1,000 mg, oral, THREE | | 20 8:23 | | | | | TIMES DAILY, First dose on Mon | | AM PST | | | | | 08/02/19 at 1600, Until | | | | | | | Discontinued | | | | | | + +-------+ + +---+---+ +-------+ + +---+---+ | Given | 08/02/19 | 1,000 mg | | | | | 20 9:48 | | | | | | PM PST | | | | +-------+ + +---+---+ | Given | 08/02/19 | 1,000 mg | | | | | 20 3:52 | | | | | | PM PST | | | | +-------+ + +---+---+ +---+---+ | | | +---+---+ + +-------+ +--------+---+---+ | allopurinoL (ZYLOPRIM) tablet | Given | 08/03/19 | 300 mg | | | | 300 mg 300 mg, oral, DAILY, | | 20 9:05 | | | | | First dose on Fri08/03/19 at | | AM PST | | | | | 0900, Until Discontinued | | | | | | + +-------+ +--------+---+---+ +---+---+ | | | +---+---+ + +-------+ +-------+---+---+ | amLODIPine (NORVASC) tablet 10 | Given | 08/03/19 | 10 mg | | | | mg 10 mg, oral, DAILY, First | | 20 8:24 | | | | | dose on Fri08/03/19 at 0900, | | AM PST | | | | | Until Discontinued | | | | | | + +-------+ +-------+---+---+ +---+---+ | | | +---+---+ + +-------+ +-------+---+---+ | aspirin EC tablet 81 mg 81 mg, | Given | 08/03/19 | 81 mg | | | | oral, DAILY, First dose on Fri | | 20 8:23 | | | | | 08/03/19 at 0900, Until | | AM PST | | | | | Discontinued | | | | | | + +-------+ +-------+---+---+ +---+---+ | | | +---+---+ + +-------+ +-------+---+---+ | diclofenac potassium (CATAFLAM) | Given | 08/02/19 | 50 mg | | | | tablet 50 mg 50 mg, oral, ONCE, | | 20 9:56 | | | | | 1 dose, 08/02/19 at 0930 | | AM PST | | | | + +-------+ +-------+---+---+ +---+---+ | | | +---+---+ + +-------+ +--------+---+---+ | docusate sodium (COLACE) | Given | 08/03/19 | 100 mg | | | | capsule 100 mg 100 mg, oral, | | 20 8:23 | | | | | TWICE DAILY, First dose on Mon | | AM PST | | | | | 08/02/19 at 1400, Until | | | | | | | Discontinued | | | | | | + +-------+ +--------+---+---+ +-------+ +--------+---+---+ | Given | 08/02/19 | 100 mg | | | | | 20 9:48 | | | | | | PM PST | | | | +-------+ +--------+---+---+ | Given | 08/02/19 | 100 mg | | | | | 20 3:52 | | | | | | PM PST | | | | +-------+ +--------+---+---+ +---+---+ | | | +---+---+ + +-------+ +-------+---+---+ | ketorolac (TORADOL) injection | Given | 08/03/19 | 15 mg | | | | 15 mg 15 mg, intravenous, EVERY | | 20 8:23 | | | | | 6 HOURS, First dose on Mon | | AM PST | | | | | 08/02/19 at 1530, Until | | | | | | | Discontinued | | | | | | + +-------+ +-------+---+---+ +-------+ +-------+---+---+ | Given | 08/03/19 | 15 mg | | | | | 20 3:52 | | | | | | AM PST | | | | +-------+ +-------+---+---+ | Given | 08/02/19 | 15 mg | | | | | 20 9:48 | | | | | | PM PST | | | | +-------+ +-------+---+---+ +---+---+ | | | +---+---+ + +---------+ + + +---+ | lactated ringers (LR) infusion | New Bag | 08/03/19 | 75 mL/hr | 75 mL/hr | | | 75 mL/hr, intravenous, | | 20 3:24 | | | | | CONTINUOUS, Starting 08/02/19 | | AM PST | | | | | at 1245, Until 08/03/19 at | | | | | | | 1642 | | | | | | + +---------+ + + +---+ + + + + +---+ | Rate/Dose Verify | 08/03/19 | 75 mL/hr | 75 mL/hr | | | | 20 12:06 | | | | | | AM PST | | | | + + + + +---+ | Rate/Dose Verify | 08/02/19 | 75 mL/hr | 75 mL/hr | | | | 20 5:52 | | | | | | PM PST | | | | + + + + +---+ +---+---+ | | | +---+---+ + +-------+ +------+---+---+ | morphine injection 2 mg 2 mg, | Given | 08/02/19 | 2 mg | | | | intravenous, EVERY 4 HOURS | | 20 2:38 | | | | | NEEDED, Starting 08/02/19 at | | PM PST | | | | | 1206, Until 08/03/19 at 1642, | | | | | | | severe pain | | | | | | + +-------+ +------+---+---+ +---+---+ | | | +---+---+ + +-------+ +-------+---+---+ | omeprazole (PRILOSEC) capsule | Given | 08/03/19 | 20 mg | | | | 20 mg 20 mg, oral, DAILY, First | | 20 7:32 | | | | | dose on Fri08/03/19 at 0900, | | AM PST | | | | | Until Discontinued | | | | | | + +-------+ +-------+---+---+ + +---+ | | | + +---+ | ondansetron ODT (ZOFRAN ODT) | | | tablet 4 mg 4 mg, oral, EVERY 8 | | | HOURS NEEDED, Starting Mon | | | 08/02/19 at 1910, Until Fri | | | 08/03/19 at 1642, nausea/vomiting, | | | first line | | + +---+ | | | + +---+ + +-------+ +------+---+---+ | oxyCODONE (immediate release) | Given | 08/03/19 | 5 mg | | | | (ROXICODONE) tablet 5-10 mg 5-10 | | 20 12:05 | | | | | mg, oral, EVERY 4 HOURS | | AM PST | | | | | NEEDED, Starting 08/02/19 at | | | | | | | 1206, Until Tu08/03/19 at 1642, | | | | | | | moderate pain, unresponsive to | | | | | | | non-opioid medication | | | | | | + +-------+ +------+---+---+ +-------+ +-------+---+---+ | Given | 08/02/19 | 10 mg | | | | | 20 5:51 | | | | | | PM PST | | | | +-------+ +-------+---+---+ | Given | 08/02/19 | 5 mg | | | | | 20 1:18 | | | | | | PM PST | | | | +-------+ +-------+---+---+ + +---+ | | | + +---+ | oxyCODONE (immediate release) | | | (ROXICODONE) tablet 1 dose, | | | Starting 08/02/19 at 1317, | | | Until Fri08/02/19 at 1318 | | + +---+ | | | + +---+ + +-------+ +--------+---+---+ | phenazopyridine (PYRIDIUM) | Given | 08/02/19 | 100 mg | | | | tablet 100 mg 100 mg, oral, | | 20 9:56 | | | | | ONCE, 1 dose, Fri08/02/19 at 0930 | | AM PST | | | | + +-------+ +--------+---+---+ +---+---+ | | | +---+---+ documented in this encounter
--- OUTSIDE RECORDS SUMMARY | ~2020-03-26 | XMS | Encounter Summary ---
Demographics + + + | Address | [address] | | | [place] [address] | + + + | Home Phone | | + + + | Preferred Language | Unknown | + + + | Marital Status | | + + + | Nondenominational Affiliation | CAT | + + + | Race | or | + + + | Ethnic Group | Not or | + + + Author + + + | Author | [facility] | + + + | Organization | [facility] | + + + | Address | Unknown | + + + | Phone | Unavailable | + + + Support + + +---------+ + | Name | Relationship | Address | Phone | + + +---------+ + | Jamie Onofre | ECON | Unknown | | + + +---------+ + Care Team Providers + +------+ + | Care Ice Cream Shop Associate Name | Role | Phone | + +------+ + | Med Quintero MD | PCP | | + +------+ + Encounter Details +--------+ + + + + | Date | Type | Department | Care Team | Description | +--------+ + + + + | 08/03/ | Pharmacy | Pharmacy @ [facility] | | | | 2020 | Visit | [address] | | | | | | [address] [address] Mailcode: | | | | | | [facility] | | | | | | and Healing, | | | | | | [address] | | | | | | [facility] [place] | | | | | | [address] | | | +--------+ + + + [...]
--- OUTSIDE RECORDS SUMMARY | ~2020-03-26 | XMS | Encounter Summary ---
Demographics + + + | Address | [address] [place] [address] | | | [place] [address] | + + + | Home Phone | | + + + | Preferred Language | Unknown | + + + | Marital Status | | + + + | Voodoo Affiliation | Unknown | + + + | Race | White | + + + | Ethnic Group | Not or | + + + Author + + + | Author | [facility] | | | and [place] | + + + | Organization | [facility] | | | and [place] | + + + | Address | Unknown | + + + | Phone | Unavailable | + + + Support + + + + + | Name | Relationship | Address | Phone | + + + + + | Jamie Jemima | ECON | [address] | | | | | [place] [address] | | + + + + + Care Team Providers + +------+ + | Care Tipple Tender Name | Role | Phone | + +------+ + PCP | Unavailable | + +------+ + Encounter Details +--------+ + + + + | Date | Type | Department | Care Team | Description | +--------+ + + + + | 03/07/ | Hospital | [facility] | Radha, | | | 2008 - | Encounter | [facility] | Frankie Mendez MD [address] | | | | | [address] | [address] | | | 04/05/ | | [place] [place] | [address] [place], [place] | | | 2008 | | [address] | [address] | | | | | [phone] | | | +--------+ + + + [...]
--- OUTSIDE RECORDS SUMMARY | ~2020-03-26 | XMS | Encounter Summary ---
Demographics + + + | Address | [address] | | | [place] [address] | + + + | Home Phone | | + + + | Preferred Language | Unknown | + + + | Marital Status | | + + + | Mormon Affiliation | CAT | + + + | Race | or | + + + | Ethnic Group | Not or | + + + Author + + + | Author | [facility] | + + + | Organization | [facility] | + + + | Address | Unknown | + + + | Phone | Unavailable | + + + Support + + +---------+ + | Name | Relationship | Address | Phone | + + +---------+ + | Jamie Onofre | ECON | Unknown | | + + +---------+ + Care Team Providers + +------+ + | Care Financial Systems Manager Name | Role | Phone | + +------+ + | Med Quinetro MD | PCP | | + +------+ + Reason for Visit +--------+--------+ + | Reason | Onset | Comments | | | Date | | +--------+--------+ + | Preop | 07/19/ | | | | 2020 | | +--------+--------+ + Encounter Details +--------+ + + + + | Date | Type | Department | Care Team | Description | +--------+ + + + + | 07/19/ | [facility]phone [facility] | Elvia Shah, | Preop | | 2020 | | [facility] | [address] [facility] | | | | | [address] | [facility] | | | | | [address] | [place], [place] | | | | | Pavilion, 7th floor | [address] | | | | | [place], [place] | [phone] | | | | | [address] | | | | | | [phone] | | | +--------+ + + + [...] Encounter - Katerin Edmondson RN - 07/30/2019 8:33 AM PSTPatient returned my phon e call. Direct transfer from [facility]. Reviewed updated NPO guidelines from Dr. Owen. Patient verbalized understanding and is in agreement with plan. She also states she is confirmed for a stay at the [facility] and has no questions prior to her surgery. Routing to Dr. Schmidt and Dr. Shah for FYI. Closing. elephone Encounter - Katerin Edmondson RN - 07/30/2019 8:14 AM PSTCall to patient. No answer, and unable to le ave voicemail. elephon e Encounter - Ana Cristina Navarro RN - 07/21/2019 11:23 AM PSTCall to patient No answer Unable to leave VM elephone Encounter - Ana Cristina Navarro RN - 07/19/2019 3:44 PM PSTCall to patient x2 No answer Unable to leave VM Routing to Dr. Owen and Dr. Shah as FYI elephone Encounter - Ana Cristina Navarro RN - 07/19/2019 10:29 AM PST Message Received: 3 days ago Message Contents Kaylin Owen MD P [facility] Urogyn Triage Pool Please call patient to correct my error re NPO window (See note) she needs to be NPO for 4 hours prior to procedure not 2. Thank you! Per 07/26/2019 OV note: "- ERAS procedure. Counseled patient today on clear liquids until 2 hours prior to surgery as she reported no history of acid reflux to me, however on chart rev iew she does have this. attempted to call patient to change to 4 hours prior to surgery but no voicemail reached. Encounter routed to swimming pool maintenance supervisor to call patient next week and clarify dominic r liquids encouraged from midnight until 4 hours before surgery, when she needs to be NPO."E lectronically signed by Ana Cristina Navarro RN at 07/19/2019 10:31 AM PSTdocumented in this encou nter Plan of Treatment Not on filedocumented as of this encounter Visit Diagnoses Not on filedocumented in this encounter
--- OUTSIDE RECORDS SUMMARY | ~2020-03-26 | XMS | Encounter Summary ---
Demographics + + + | Address | [address] [place] [address] | | | [place] [address] | + + + | Home Phone | | + + + | Preferred Language | Unknown | + + + | Marital Status | | + + + | Orthodoxy Affiliation | Unknown | + + + | Race | White | + + + | Ethnic Group | Not or | + + + Author + + + | Author | [facility] | | | and [place] | + + + | Organization | [facility] | | | and [place] | + + + | Address | Unknown | + + + | Phone | Unavailable | + + + Support + + + + + | Name | Relationship | Address | Phone | + + + + + | Jamie Jemima | ECON | [address] | | | | | [place] [address] | | + + + + + Care Team Providers + +------+ + | Care Travel Attendants Name | Role | Phone | + +------+ + PCP | Unavailable | + +------+ + Encounter Details +--------+ + + + + | Date | Type | Department | Care Team | Description | +--------+ + + + + | 01/04/ | Hospital | [facility] | Radha, | | | 2008 - | Encounter | [facility] | Frankie Mendez MD [address] | | | | | [address] | [address] | | | 02/03/ | | [place] [place] | [address] [place], [place] | | | 2008 | | [address] | [address] | | | | | [phone] | | | +--------+ + + + [...]
--- OUTSIDE RECORDS SUMMARY | ~2020-03-26 | XMS | Encounter Summary ---
Demographics + + + | Address | [address] | | | [place] [address] | + + + | Home Phone | | + + + | Preferred Language | Unknown | + + + | Marital Status | | + + + | Church Affiliation | CAT | + + + | Race | or | + + + | Ethnic Group | Not or | + + + Author + + + | Author | [facility] [employer] [facility] [employer] | + + + | Organization | [facility] | + + + | Address | Unknown | + + + | Phone | Unavailable | + + + Support + + +---------+ + | Name | Relationship | Address | Phone | + + +---------+ + | Jamie Onofre | ECON | Unknown | | + + +---------+ + Care Team Providers + +------+ + | Care Engineering Clerk Name | Role | Phone | + +------+ + | Med Quintero MD | PCP | | + +------+ + Reason for Visit + + + | Reason | Comments | + + + | New patient | | | consultation | | + + + Intake Referral (Routine) + +--------+ + + + + | Status | Reason | Specialty | Diagnoses / | Referred By | Referred To | | | | | Procedures | Contact | Contact | + +--------+ + + + + | Authorized | | Obstetrics & | Diagnoses | [place], | [facility] | | | | Gynecology | Vaginal | MD Med | [address] | | | | | prolapse | [id number] | [address] | | | | | Cystocele | Way [address] | [address] | | | | | Procedures | [address] | [address], [address] | | | | | [place] NEW | [address], | floor | | | | | PATIENT | [place] [address] | [place], [place] | | | | | LEVEL V [place] | Phone: | [phone] | | | | | EST PATIENT | [phone] | Phone: | | | | | LEVEL V [place] | Fax: | [phone] | | | | | CYSTOURETHRO | [phone] | Fax: | | | | | [place] | | [phone] | | | | | CYSTOURETHRO | | | | | | | SCOPY,W INJ | | | | | | | CHEMODENV | | | | | | | BLDR NM | | | | | | | BOTULINUM | | | | | | | TOXIN A PER | | | | | | | UNIT NM | | | | | | | CYSTOMETROGR | | | | | | | AM W/COAL MINER&UP | | | | | | | NM | | | | | | | INTRAABDOMIN | | | | | | | AL PRESSURE | | | | | | | TEST NM | | | | | | | ELECTRO-UROF | | | | | | | LOWMETRY, | | | | | | | FIRST NM | | | | | | | ANAL/URINARY | | | | | | | MUSCLE | | | | | | | STUDY NM | | | | | | | URETHROCYSTO | | | | | | | GRAM+VOIDING | | | | | | | NM | | | | | | | [...] Description | +--------+---------+ + + + | 05/05/ | Office | [facility] | Elvia Shah, | Urinary urgency | | 2019 | Visit | [facility] | [address] | (Primary Dx) | | | | [address] | [facility] | | | | | [address] | [place], [place] | | | | | [address], [facility] | [address] | | | | | [place], [place] | [phone] | | | | | [address] | | | | | | [phone] | | | +--------+---------+ + + + [...] + + + | Blood Pressure | 174/84 | 05/05/2019 8:24 AM | | | | | PDT | | + + + + + | Pulse | 62 | 05/05/2019 8:24 AM | | | | | PDT | | + + + + + | Temperature | 36.4 C (97.6 F) | 05/05/2019 8:24 AM | | | | | PDT | | + + + + + | Respiratory Rate | - | - | | + + + + + | Oxygen Saturation | 97% | 05/05/2019 8:24 AM | | | | | PDT | | + + + + + | Inhaled Oxygen | - | - | | | Concentration | | | | + + + + + | Weight | 61.8 kg (136 lb 3.2 | 05/05/2019 8:24 AM | | | | oz) | PDT | | + + + + + | Height | 157.5 cm (5' 2") | 05/05/2019 8:24 AM | | | | | PDT | | + + + + + | Body Mass Index | 24.91 | 05/05/2019 8:24 AM | | | | | PDT | | + + + + + documented in this encounter Patient Instructions Patient Instructions Maya Boone MD - 05/05/2019 8:00 AM PDTNIce to Electronica lly signed by Maya Boone MD at 05/05/2019 9:55 AM PDT documented in this encounter Progress Notes Shaneka De La Cruz MA - 05/05/2019 8:00 AM PDTUA performed on urine specimen per protocol./O btained two patient identifiers per protocol. OMAR faxed to [facility]. . . uMaya giraldo MD - 05/05/2019 8:00 AM PDT NEW UROGYNECOLOGY 05/05/19 Referring Provider: Med Quintero MD Primary Care Provider: Med Quintero MD HPI: Verena Onofre is a 68 y.o. female who presents for recurrent vaginal p rolapse. Patient in her 40s had a FAROOQ along with a Bright suspension, followed by an anteri or-posterior colporrhaphy in 1999. Vault prolapse eventually required a vaginal vault suspen luis, repair of a large cystocele with Prolene mesh and a sling urethropexy in 2010. She sta job the bulge has returned through the vagina and is preventing her for playing with her gra ndkids. She has both urinary and anal incontinence. Her quality of life has significantly be en affected by these symptoms and she is afraid to leave her house. She has + frequency and FAVIOLA primarily. She does not have urge incontinency. She does have constipation and sensatio n or incomplete evacuation. No pelvic pain. PmHx: Breast cancer s/p lumpectomy and XRT in 2010 Prediabetes (resolved) GERD Obesity HTN PSHx: BTL FAROOQ with RSO and Bright suspension 1994 Enterocele repair with anterior/posterior colporrhaphy in 1999 Vaginal vault suspension, repair of a large cystocele with Prolene mesh and a sling urethro pexy in 2011 Left breast lumpectomy (negative nodes) Laparoscopic cholecystectomy FamHx: Not contributory GYNECOLOGIC HISTORY: No LMP recorded. Patient is postmenopausal. Age at Menarche: 11 years old. Menses: regular cycle, every 28 days, bleeding for 4 days. Menses: normal. Menopause: In her 50s Sexual Activity: Patient is not sexually active. She has not had a new sexual partner in t he last year. Contraception: BTL OBHx: 4 pregnancies, 4 vaginal deliveries Meds: Current Outpatient Medications Medication Sig allopurinol 300 mg oral tablet Take 300 mg by mouth. amLODIPine 10 mg oral tablet Take 10 mg by mouth. aspirin EC 81 mg oral tablet,delayed release (DR/EC) Take 81 mg by mouth. omeprazole 20 mg oral capsule,delayed release(DR/EC) Take 20 mg by mouth. No current facility-administered medications for this visit. ALLERGIES: Penicillins SOCIAL HISTORY AND HABITS: Social History Patient does not qualify to have social determinant information on file (likely too young). Social History Narrative Not on file Denies tobacco, alcohol, or other drug use Was a social smoker (with gambling) for many years, but not regularly. Has not smoked in al most 10 years No ETOH use[place] REVIEW OF SYSTEMS: Abdominal or pelvic pain: no Constipation / diarrhea / blood in stool: no Heartburn / trouble swallowing: no Urine leakage: yes Vaginal / vulvar itching, irritation, discharge: no Breast lumps / nipple discharge: no Chest pain: no Shortness of breath: no Pain with sexual intercourse: no Visual / hearing problems: no Weight loss, fever, chills sweats: no Headaches- migraine or tension: no Numbness / tingling / weakness of extremities: no Joint / muscle pain: no Depression, anxiety, irritability, trouble sleeping: no Hot flashes / vaginal dryness: no PHYSICAL EXAM: BP 174/84 | Pulse 62 | Temp 36.4 C (97.6 F) | Ht 1.575 m (5' 2") | Wt 61.8 kg (136 lb 3.2 oz) | SpO2 97% | BMI 24.91 kg/m | BSA 1.64 m Body mass index is 24.91 kg/m. General: This is a well appearing, elderly female in no apparent distress. Skin: Warm, dry and no rashes or lesions. HEENT: Normocephalic. Neck: Supple. No thyromegaly. No cervical or supraclavicular lymphadenopathy. Heart: Regular rate. No murmur, gallops, rubs. Lungs: Clear to auscultation bilaterally. Abdomen: Soft. Non-tender. Nondistended. No masses. Well healed midline incision to umbili cus and two small 1 cm well healed incisions in RUQ. Musculoskeletal: Normal. Extremities: No edema. No inguinal lymphadenopathy. Neurological: Normal PELVIC EXAM: External Genitalia: Normal contour with hypoestrogen effect. Urethral Meatus: Hypermobile. Vagina: Hypoestrogenized. Diminished rugae. No lesions. Anus and Perineum: Small flesh colored external hemorrhoid POPQ Gh 6 Pb 5 Aa 0 Ba 0 Ap -1 Bp -1 C -1 TVL 5 No mesh palpated within vagina, painful with palpation over the anterior mesh, no obvious m esh erosion ASSESSMENT: Verena Onofre is a 68 y.o. female who presents for recurrent va ginal prolapse. She has had two prior surgeries for prolapse and FAVIOLA (enterocele repair with anterior/posterior colporrhaphy in 1999 and a vaginal vault suspension, repair of a large cystocele with Prolene mesh and a sling u rethropexy in 2010). We do not have the surgical records and will work on obtaining records, particularly for the 2011 surgery (OMAR completed today). We discussed surgical options incl uding colpocleisis and sacrocolpopexy (unclear which approach at this time given her extensi ve surgical history and no surgical records). She wants to consider her options and rediscus s after the holidays. We discussed that the colpocleisis would be the most effective surgery (~95% success rate) and the SCP would likely be more complex and less likely to be successf . She has not sexually active with her for many years although would like more gema e to contemplate surgical options. PLAN: -Plan to have phone appointment with Dr. Shah in next month to further discuss surgica l options/answer questions -Plan to return in July (after holidays) for UDS and cystoscopy (given her hx of mesh pl acement for urethopexy) -Materials provided today about colpocleisis and SCP The patient was seen and discussed with Dr. Shah who agrees with the assessment and pl an. Brit Boone MD Obstetrics & Gynecology, PGY-3 Pager [phone] Associated attestation - Elvia Shah MD - 05/05/2019 9:56 AM PDTI personally interv iewed the patient, performed the pertinent parts of the physical examination and personally formulated the plan with the resident Dr. Boone. I agree with the residents documentat ion and have documented any additions or exceptions. I was present for all procedures as d ocumented below in their entirety. UROFLOW: void 270cc, flow 24.6ml/sec time to max flow 5.4s This was a highly complex encounter where I addressed a new problem, made the following ord ers for cystoscopy and UDS, reviewed and summarized the sent records and scheduled F/U for U DS and cystoscopy with plans for either sacrocolpopexy or colpocleisis. She is not able to h ave a [place] tissue repair secondary to short vaginal length. I strongly asked her to consid er colpocleisis as there is no recent sexual activity (past 7 years) with her . I wou ld like to cysto to confirm there is no bladder mesh erosion prior to proceeding with surger y. Elvia Shah MD [facility] [address] [address] documented in this encounter Plan of Treatment Not on filedocumented as of this encounter Procedures + +--------+ + + + | Procedure Name | Priori | Date/Time | Associated Diagnosis | Comments | | | ty | | | | + +--------+ + + + | NM | Routin | 05/05/2019 | Urinary urgency | | | CYSTOMETROGRAM,SIMPL | e | 9:56 AM | | | | E,GLOBAL | | PDT | | | + +--------+ + + + | UA DIPSTICK 10 DIP | Routin | 05/05/2019 | Urinary urgency | Results for this | | W/O MICRO | e | 8:45 AM | | procedure are in the | | (AUTOMATED), POC | | PDT | | results section. | + +--------+ + + + documented in this encounter Results UA 10 DIP, POC (05/05/2019 8:45 AM PDT) + + + + + + | Component | Value | Ref Range | Performed | Pathologist | | | | | At | Signature | + + + + + + | COLOR (UA | Light yellow | | [facility] - | | | DIP), POC | | | [facility] | | | | | | [place], POINT | | | | | | OF CARE | | | | | | TESTS | | + + + + + + | APPEARANCE | Clear | | [facility] - | | | (UA DIP), | | | [facility] | | | POC | | | [place], POINT | | | | | | OF CARE | | | | | | TESTS | | + + + + + + | LEUKOCYTES | Trace (A) | Negative | [facility] - | | | (UA DIP), | | | [facility] | | | POC | | | [place], POINT | | | | | | OF CARE | | | | | | TESTS | | + + + + + + | NITRITES | Negative | Negative | [facility] - | | | (UA DIP), | | | [facility] | | | POC | | | [place], POINT | | | | | | OF CARE | | | | | | TESTS | | + + + + + + | UROBILINOGE | 0.2 | 0.2 - 1.0 | [facility] - | | | N (UA DIP), | | E.U./dL | [facility] | | | POC | | | [place] POINT | | | | | | OF CARE | | | | | | TESTS | | + + + + + + | PROTEIN (UA | Negative | Neg - Trace | [facility] - | | | DIP), POC | | mg/dL | [facility] | | | | | | [place] POINT | | | | | | OF CARE | | | | | | TESTS | | + + + + + + | PH (UA | 7.0 | 5.0 - 8.0 | [facility] - | | | DIP), POC | | | [facility] | | | | | | [place] POINT | | | | | | OF CARE | | | | | | TESTS | | + + + + + + | BLOOD (UA | Trace-intact (A) | Negative | [facility] - | | | DIP), POC | | | [facility] | | | | | | [place], POINT | | | | | | OF CARE | | | | | | TESTS | | + + + + + + | SPECIFIC | 1.015 | 1.005 - 1.030 | [facility] - | | | GRAVITY (UA | | | [facility] | | | DIP), POC | | | [place], POINT | | | | | | OF CARE | | | | | | TESTS | | + + + + + + | KETONES (UA | Negative | Negative mg/dL | [facility] - | | | DIP), POC | | | [facility] | | | | | | [place], POINT | | | | | | OF CARE | | | | | | TESTS | | + + + + + + | BILIRUBIN | Negative | Negative | [facility] - | | | (UA DIP), | | | [facility] | | | POC | | | [place], POINT | | | | | | OF CARE | | | | | | TESTS | | + + + + + + | GLUCOSE (UA | Negative | Negative - | [facility] - | | | DIP), POC | | Trace mg/dL | [facility] | | | | | | [facility] | | | | | | OF CARE | | | | | | TESTS | | + + + + + + + + | Specimen | + + | Urine - Urine | | (substance) | + + + + + + + | Performing | Address | City/State/Zipcode | Phone Number | | Organization | | | | + + + + + | [facility] | [address] | [place], [place] | | | [facility] | [address] | [address] | | | TESTS | | | | + + + + + documented in this encounter Visit Diagnoses + + | Diagnosis | + + | Urinary urgency - Primary Urgency of urination | + + documented in this encounter
--- OUTSIDE RECORDS SUMMARY | ~2020-03-26 | XMS | Encounter Summary ---
Demographics + + + | Address | [address] [place] [address] | | | [place] [address] | + + + | Home Phone | | + + + | Preferred Language | Unknown | + + + | Marital Status | | + + + | Quaker Affiliation | Unknown | + + + | Race | White | + + + | Ethnic Group | Not or | + + + Author + + + | Author | [facility] | | | and [place] | + + + | Organization | [facility] | | | and [place] | + + + | Address | Unknown | + + + | Phone | Unavailable | + + + Support + + + + + | Name | Relationship | Address | Phone | + + + + + | Jamie Jemima | ECON | [address] | | | | | [place] [address] | | + + + + + Care Team Providers + +------+ + | Care Development Intern Name | Role | Phone | + +------+ + PCP | Unavailable | + +------+ + Encounter Details +--------+ + + + + | Date | Type | Department | Care Team | Description | +--------+ + + + + | 12/28/ | Hospital | [facility] | Radha, | | | 2008 - | Encounter | [facility] | Frankie Mendez MD [address] | | | | | [address] | [address] | | | 01/03/ | | [employer] [place] [place] | [address], [place] | | | 2008 | | [address] | [address] | | | | | [phone] | | | +--------+ + + + [...]
--- OUTSIDE RECORDS SUMMARY | ~2020-03-26 | XMS | Encounter Summary ---
Demographics + + + | Address | [address] | | | [place] [address] | + + + | Home Phone | | + + + | Preferred Language | Unknown | + + + | Marital Status | | + + + | Orthodoxy Affiliation | CAT | + + + | Race | or | + + + | Ethnic Group | Not or | + + + Author + + + | Author | [employer] [facility] [employer] | + + + | Organization | [facility] | + + + | Address | Unknown | + + + | Phone | Unavailable | + + + Support + + +---------+ + | Name | Relationship | Address | Phone | + + +---------+ + | Jamie Onofre | ECON | Unknown | | + + +---------+ + Care Team Providers + +------+ + | Care Aligner Typewriter Name | Role | Phone | + +------+ + PCP | Unavailable | + +------+ + Encounter Details +--------+ + + + + | Date | Type | Department | Care Team | Description | +--------+ + + + + | 11/25/ | Abstract | [facility] | Unknown . | | | 2019 | | [facility] | | | | | | [address] | | | | | | [address] | | | | | | [address] | | | | | | [place], [place] | | | | | | [address] | | | | | | [phone] | | | +--------+ + + + [...]
--- OUTSIDE RECORDS SUMMARY | ~2020-03-26 | XMS | Encounter Summary ---
Demographics + + + | Address | [address] | | | [place] [address] | + + + | Home Phone | | + + + | Preferred Language | Unknown | + + + | Marital Status | | + + + | Cheondoism Affiliation | CAT | + + + | Race | or | + + + | Ethnic Group | Not or | + + + Author + + + | Author | [facility] [employer] | + + + | Organization | [facility] | [...] Team Providers + +------+ + | Care Group Insurance Special Agent Name | Role | Phone | + +------+ + | Med Quintero MD | PCP | | + +------+ + Encounter Details +--------+ + + + + | Date | Type | Department | Care Team | Description | +--------+ + + + + | 07/16/ | Anesthesia | Preoperative | Geri Payton FNP | | | 2020 | Event | [facility] at | [address] | | | | | [facility] | [place], [place] | | | | | [address] | [address] | | | | | [facility] | [phone] | | | | | and [address], | | | | | | [address] | | | | | | [place], [place] | | | | | | [address] | | | | | | [phone] | | | +--------+ + + + + Anesthesia Record + + + + + | Procedure Name | Responsible | Anesthesia Start | Anesthesia Stop Time | | | Anesthesiologist | Time | | + + + + + | preop evaluatin | | | | + + + + + + + | No events on file. | + + +------+ | Meds | +------+ + + + No medications | on file. | + + + + + | No agents on file. | + + + + | No blood administrations on file. | + + + + | No LDAs on file. | + + documented in this encounter Social [...] documented as of this encounter Miscellaneous Notes PMC/ANE PreOp Note - Fito Geri ESTEVAN Doshi - 07/16/2019 1:42 PM PSTROS: HPI: Prior Anesthetic Problems: No Pulmonary: no shortness of breath no cough no wheezing no Recent Respiratory Infection Pt. Has no asthma no COPD No dx of sleep apnea Risk factors for sleep apnea: Age>50 Pt at [place] Cardiovascular: Hx Rheumatic heart disease hypertension well controlled no CAD Sx no valvular problems/mur murs no arrhythmia no pacemaker/ICD GI/Hepatic: GERD no liver disease Renal: no renal failure Endo: Hx prediabetes- controlled with diet no Diabetes: no Endocrine Other Neuro/Psych: No Head Conditions no pain Current pain score: 0 Musculoskeletal: no arthritis No Muscular Disorders no skeletal disorders Heme/Onc: Pt. has: no active bleeding no bleeding disorder No clotting disorders malignancy La ast Infectious Disease: no MRSA no VRE Skin: no open wounds No active skin infections no skin conditions Physical Exam General: Appearance: Age appropriate and No distress LOC: Alert HEENT: Normocephalic/Atraumatic and Oropharyngeal mucosa pink/moist Airway: Dentition: dental implants, bridges or caps present missing teeth Mallampati: 3 Mouth Openi ng: > 3 cm TM Distance:> 6 cm C-Spine ROM: Normal Neck Anatomy: Normal Jaw Protrusion: Normal (lower incisors go above upper incisors) Pulmonary: Respiratory: pulmonary exam normal Breath Sounds: breath sounds normal Cardiovascular: Rhythm: Regular Rate: Normal Abdomen: General: Normal Body Habitus: normal Neuro/Psych: Affect: Normal Cognitive Status: Normal Speech: Normal speech Strength: Normal Skin: Color: skin color normal Temperature: Warm Other Implanted Devices: Implanted devices: None documented in this enc ounter Plan of Treatment Not on filedocumented as of this encounter Visit Diagnoses Not on filedocumented in this encounter"
--- OUTSIDE RECORDS SUMMARY | ~2020-03-26 | XMS | Encounter Summary ---
Demographics + + + | Address | [address] [place] [address] | | | [place] [address] | + + + | Home Phone | | + + + | Preferred Language | Unknown | + + + | Marital Status | | + + + | Mandaen Affiliation | Unknown | + + + [...] + + + + + | Jamie Julianaveen | ECON | [address] | | | | | [place] [address] | | + + + + + Care Team Providers + +------+ + | Care Stogie Packer Name | Role | Phone | + +------+ + | Kirsten Cuevas | PCP | | + +------+ + Reason for Visit + + + | Reason | Comments | + + + | Leg Swelling | | + + + Auth/Cert +--------+--------+ + + + + | Status [...] | +--------+ + + + + | 11/30/ | Emergency | [facility] | Arik Umaña | Hypokalemia (Primary | | 2017 | | [facility] | MD Frankie [address] | Dx); Leg swelling | | | | CENTER [address] | [address] | | | | | [place] | [place] [address] | | | | | [address] | [phone] | | | | | [phone] | | | +--------+ + + + [...] + + documented in this encounter Discharge Instructions AttachmentsThe following attachments cannot be sent through Care Everywhere.LEG SWELLING IN BOTH LEGS (IRANIAN)HYPOKALEMIA (IRANIAN)documented in this encounter Medications at Time of Discharge + + + +---------+ + + | Medication | Sig | Dispensed | Refills | Start | End Date | | | | | | Date | | + + + +---------+ + + | allopurinol | Take 300 mg by mouth | | 0 | | | | (ZYLOPRIM) 300 mg | Daily. | | | | | | tablet | | | | | | + + + +---------+ + + | amLODIPine | Take 10 mg by mouth | | 0 | | | | (NORVASC) 10 MG | Daily. | | | | | | tablet | | | | | | + + + +---------+ + + | aspirin 81 mg EC | Take 81 mg by mouth | | 0 | | | | tablet | Daily. | | | | | + + + +---------+ + + | omeprazole | Take 20 mg by mouth | | 0 | | | | (PRILOSEC) 20 mg | every morning | | | | | | capsule | (before breakfast). | | | | | + + + +---------+ + + | terbutaline | Take 2.5 mg by mouth | | 0 | | | | (BRETHINE) 2.5 mg | every 6 hours. | | | | | | tablet | | | | | | + + + +---------+ + + | | Take 1 tablet by | | 0 | | | | triamterene-hydrochl | mouth Daily. | | | | | | orothiazide | | | | | | | (MAXZIDE-25) 37.5-25 | | | | | | | mg per tablet | | | | | | + + + +---------+ + + | potassium chloride | Take 1 tablet by | 5 | 0 | 12/01/19 | | | (K-DUR) 20 mEq ER | mouth Daily for 5 | tablet | | 17 | 7 | | tablet | days. | | | | | + + + +---------+ + + documented as of this encounter ED Notes Arik Umaña MD - 11/30/2016 5:05 PM PDTFormatting of this note might be diff erent from the original. [facility] Verena Onofre Emergency Department Encounter Note [address] [place] [address] PCP:Kirsten Cuevas, ESTEVAN [phone] CHIEF COMPLAINT: Chief Complaint Patient presents with Leg Swelling ED Room: ED01 [facility] Verena Onofre is a 66 y.o. female who presents to the Emergency Department Patient presents complaining of leg swelling BL worsened when up on her feet all day resolv es with leg elevation at night. Cause 3/10 aching localized constant gradual onset discomfor t. Not present on arrival to the ED. PAST MEDICAL & SURGICAL HISTORY Past Medical History: Diagnosis Date Cancer (HCC) breast Hypertension Past Surgical History: Procedure Laterality Date BREAST SURGERY Left lumpectomy CURRENT MEDICATIONS Discharge Medication List as of 11/30/2016 17:37 CONTINUE these medications which have NOT CHANGED Details allopurinol (ZYLOPRIM) 300 mg tablet Take 300 mg by mouth Daily.Historical Med amLODIPine (NORVASC) 10 MG tablet Take 10 mg by mouth Daily.Historical Med aspirin 81 mg EC tablet Take 81 mg by mouth Daily.Historical Med omeprazole (PRILOSEC) 20 mg capsule Take 20 mg by mouth every morning (before breakfast).Hi storical Med terbutaline (BRETHINE) 2.5 mg tablet Take 2.5 mg by mouth every 6 hours.Historical Med triamterene-hydrochlorothiazide (MAXZIDE-25) 37.5-25 mg per tablet Take 1 tablet by mouth D aily.Historical Med ALLERGIES Allergies Allergen Reactions Penicillins FAMILY AND SOCIAL HISTORY History reviewed. No pertinent family history. Social History Social History Marital status: Spouse name: N/A Number of children: N/A Years of education: N/A Social History Main Topics Smoking status: Never Smoker Smokeless tobacco: None Alcohol use No Drug use: Unknown Sexual activity: Not Asked Other Topics Concern None Social History Narrative None REVIEW OF SYSTEMS As in history of present illness. A 10 system review was otherwise negative. PHYSICAL EXAM VITAL SIGNS: (first vital signs):Temp: 36.6 C (97.8 F) Pulse: 73 Resp: 16 SpO2: 98 % BP : 155/81 Body mass index is 29.29 kg/m. Constitutional: Well-appearing female patient. HEENT: Atraumatic, PERRL, Oropharynx benign. Neck: Supple with full range of motion. No JVD, no lymphadenopathy, no meningismus and No Cervical Spine Tenderness to palpation or step-off noted. Respiratory: Good air movement bilaterally. No wheezes, No, rales. Cardiovascular: Normal S1 S2 Abdomen: Soft, nontender., No rebound, guarding, or masses., Bowel tones normal. and No pu lsatile masses. Back: Within normal limits, No CVA tenderness and No midline thoracic or lumbar spinal tend erness Extremities: Nontender. No lower extremity edema, no calf asymmetry. Present distal pulse s. Skin: Warm, Dry, No rashes Neurologic: Alert & oriented. No focal deficits., Speech normal, gait not tested Psychiatric: Normal mood, affect and judgement. EKG 12-lead EKG shows LABS Results for orders placed or performed during the hospital encounter of 11/30/16 CBC with Differential Result Value Ref Range WBC 9.5 4.0 - 11.0 K/uL RBC 4.87 3.70 - 5.20 M/uL Hgb 14.4 11.5 - 16.0 g/dL Hct 42.6 34.0 - 47.0 % MCV 87.4 83.0 - 101.0 fL MCH 29.5 28.0 - 35.0 pg MCHC 33.8 32.0 - 36.0 g/dL RDW-CV 14.4 <15.0 % Platelet Count 225 140 - 440 K/uL MPV 10.0 fL % Neutrophils 65.7 45.0 - 82.0 % % Lymphocytes 24.1 20.0 - 45.0 % % Monocytes 7.6 4.0 - 12.0 % % Eosinophils 1.8 0.0 - 5.0 % % Basophils 0.8 0.0 - 1.0 % Absolute Neutrophils 6.20 1.80 - 8.50 K/uL Absolute Lymphocytes 2.30 0.60 - 3.20 K/uL Absolute Monocytes 0.70 0.00 - 1.00 K/uL Absolute Eosinophils 0.20 0.00 - 0.40 K/uL Absolute Basophils 0.10 0.00 - 0.10 K/uL Comprehensive Metabolic Panel Result Value Ref Range NA 141 136 - 149 mmol/L K 3.0 (L) 3.5 - 5.1 mmol/L CL 105 98 - 109 mmol/L CO2 26 24 - 31 mmol/L ANION GAP 10 3 - 16 mmol/L GLUCOSE 95 70 - 109 mg/dL BUN 8 7 - 18 mg/dL Creatinine, Serum/Plasma 0.68 0.60 - 1.30 mg/dL eGFR if not >60 >=60 mL/min/1.73m2 CALCIUM 10.5 8.3 - 10.5 mg/dL ALBUMIN 4.5 3.2 - 5.0 g/dL BILIRUBIN TOTAL 0.7 0.1 - 1.5 mg/dL Total protein 6.7 6.0 - 7.8 g/dL AST 26 10 - 42 U/L ALT 26 6 - 45 U/L ALK PHOS 121 (H) 40 - 110 U/L GLOBULIN 2.2 2.1 - 3.8 g/dL Albumin/Globulin ratio 2.0 0.8 - 2.0 BUN/CREA 11.8 B Type Natriuretic Peptide Result Value Ref Range BNP 61 <100 pg/mL Lipase Result Value Ref Range LIPASE 13 0 - 60 U/L IMAGING STUIDES (X-Rays interpreted by ED Physician) ED COURSE & MEDICAL DECISION MAKING Pertinent Labs & Imaging studies were reviewed along with EMS notes and [facility] record s if applicable. (See chart for details) Medications and Allergy list reviewed. Nurses note and old records were reviewed The patient was seen and examined, Clinically there is no evidence of DVT. Labs cbc, cmp, bnp performed no evidence of acute pathology. Mild hypokalemia and repleatio n is initiated, she is instructed to follow up with her pcp. She is counselled about home care of gravity dependant leg swelling and use of compression stalking. The patient remained hemodynamically stable within normal limits during their ED course, and sat comfortably in their bed in no apparent distress. The patient was counseled about their results and workup including all incidental findings and the need for out patient follow up to which they verbalized their understanding. The patient was counseled about the importance of medical recommendations today and the dangers including harm or of non adherence to the plan. They verbalize their understanding of today's plan and agree with it. They were counseled that emergency services are available to them 27/01 and to return to the ED immediately if symptoms return. The patient was given follow up. They were given further strict, thorough, actionable return precautions to which they verbalized their understanding. The patient's questions were answered and the patient agreed with the plan. The patient was discharged in good stable condition. Medical Decision Making Last Set of Vital Signs: Temp: 36.6 C (97.8 F) Pulse: 73 Resp: 16 SpO2: 98 % BP: 155/81 FINAL IMPRESSION ICD-10-CM ICD-9-CM 1. Hypokalemia E87.6 276.8 2. Leg swelling M79.89 729.81 Follow-up Information ESTEVAN Romero. Call today. Specialty: Family Nurse Practitioner Contact information: [address] [place] [id number] Discharge Medication List as of 11/30/2016 17:37 START taking these medications Details potassium chloride (K-DUR) 20 mEq ER tablet Take 1 tablet by mouth Daily for 5 days.Disp-5 tablet, R-0, Print Administrations This Visit potassium chloride (K-DUR) ER tablet 40 mEq Admin Date Action Dose Route Administered By 11/30/2016 Given 40 mEq Oral Martha Walker RN Portions of this chart were created with [employer] voice recognition software. Inadvertent so und alike substitutions may be present and are unintentional Arik Umaña MD 12/09/16 0604 documented i n this encounter Miscellaneous Notes ED Triage Notes - Roya Wright RN - 11/30/2016 4:15 PM PDTC/o bilateral leg swelling x 10 days. Reported slight sob. documented in this encounter Plan of Treatment Not on filedocumented as of this encounter Procedures + +--------+ + + + | Procedure Name | Priori | Date/Time | Associated Diagnosis | Comments | | | ty | | | | + +--------+ + + + | CBC WITH | STAT | 11/30/2016 | | Results for this | | DIFFERENTIAL | | 4:29 PM | | procedure are in the | | | | PDT | | results section. | + +--------+ + + + | B TYPE NATRIURETIC | STAT | 11/30/2016 | | Results for this | | PEPTIDE | | 4:29 PM | | procedure are in the | | | | PDT | | results section. | + +--------+ + + + | LIPASE | STAT | 11/30/2016 | | Results for this | | | | 4:29 PM | | procedure are in the | | | | PDT | | results section. | + +--------+ + + + | COMPREHENSIVE | STAT | 11/30/2016 | | Results for this | | METABOLIC PANEL | | 4:29 PM | | procedure are in the | | | | PDT | | results section. | + +--------+ + + + documented in this encounter Results Lipase (11/30/2016 4:29 PM PDT) + +-------+ + + + | Component | Value | Ref Range | Performed | Pathologist | | | | | At | Signature | + +-------+ + + + | Lipase | 13 | 0 - 60 U/L | [facility] | | | | [facility] | | | | | [facility] | | | | | | [facility] - | | | | | | LABORATORY | | + +-------+ + + + + + | Specimen | + + | Blood | + + + + + + + | Performing | Address | City/State/Zipcode | Phone Number | | Organization | | | | + + + + + | [facility] | [address] | [place] | [phone] | | [facility] | | [address] | | | - LABORATORY | | | | + + + + + B Type Natriuretic Peptide (11/30/2016 4:29 PM PDT) + +-------+ + + + | Component | Value | Ref Range | Performed | Pathologist | | | | | At | Signature | + +-------+ + + + | BNP | 61 | <100 pg/mL | [facility] | | | | | | [facility] | | | | | | MEDICAL | | | | | | CENTER - | | | | | | LABORATORY | | + +-------+ + + + + + | Specimen | + + | Blood | + + + + + + + | Performing | Address | City/State/Zipcode | Phone Number | | Organization | | | | + + + + + | [facility] | [address] | [place] | [phone] | | [facility] | | [address] | | | - LABORATORY | | | | + + + + + Comprehensive Metabolic Panel (11/30/2016 4:29 PM PDT) + + + + + + | Component | Value | Ref Range | Performed | Pathologist | | | | | At | Signature | + + + + + + | Na | 141 | 136 - 149 | [facility] | | | | | mmol/L | [facility] | | | | | | MEDICAL | | | | | | CENTER - | | | | | | LABORATORY | | + + + + + + | K | 3.0 (L) | 3.5 - 5.1 | [facility] | | | | | mmol/L | [facility] | | | | | | MEDICAL | | | | | | CENTER - | | | | | | LABORATORY | | + + + + + + | Cl | 105 | 98 - 109 mmol/L | [facility] | | | | | | [facility] | | | | | | [facility] | | | | | | CENTER - | | | | | | LABORATORY | | + + + + + + | CO2 | 26 | 24 - 31 mmol/L | [facility] | | | | | | [facility] | | | | | | MEDICAL | | | | | | CENTER - | | | | | | LABORATORY | | + + + + + + | Anion Gap | 10 | 3 - 16 mmol/L | [facility] | | | | | | [facility] | | | | | | [facility] | | | | | | CENTER - | | | | | | LABORATORY | | + + + + + + | Glucose | 95 | 70 - 109 mg/dL | [facility] | | | | | | [facility] | | | | | | [facility] | | | | | | CENTER - | | | | | | LABORATORY | | + + + + + + | BUN | 8 | 7 - 18 mg/dL | [facility] | | | | | | [facility] | | | | | | [facility] | | | | | | CENTER - | | | | | | LABORATORY | | + + + + + + | Creatinine | 0.68 | 0.60 - 1.30 | [facility] | | | | | mg/dL | [facility] | | | | | | MEDICAL | | | | | | CENTER - | | | | | | LABORATORY | | + + + + + + | eGFR, | >60Comment: GLOMERULAR | >=60 | [facility] | | | non- | FILTRATION | mL/min/1.73m2 | [facility] | | | [place] | RATE,ESTIMATED | | MEDICAL | | | | mL/min/1.45k2Cbum than | | CENTER - | | | | 60 Chronic kidney | | LABORATORY | | | | disease,if found over a | | | | | | 3-month period.Less than | | | | | | 15 Kidney failureFor | | | | | | | | | | | | Americans,multiply the | | | | | | calculated GFR by 1.21. | | | | | | | | | | + + + + + + | Calcium | 10.5 | 8.3 - 10.5 | [facility] | | | | | mg/dL | [facility] | | | | | | MEDICAL | | | | | | CENTER - | | | | | | LABORATORY | | + + + + + + | Albumin | 4.5 | 3.2 - 5.0 g/dL | [facility] | | | | | | [facility] | | | | | | [facility]ICAL | | | | | | CENTER - | | | | | | LABORATORY | | + + + + + + | Bilirubin | 0.7Comment: This is an | 0.1 - 1.5 mg/dL | [facility] | | | Total | appended report. These | | [facility] | | | | results have been | | MEDICAL | | | | appended to a previously | | CENTER - | | | | preliminary verified | | LABORATORY | | | | report. | | | | + + + + + + | Total | 6.7 | 6.0 - 7.8 g/dL | [facility] | | | Protein | | | [facility] | | | | | | MEDICAL | | | | | | CENTER - | | | | | | LABORATORY | | + + + + + + | AST | 26Comment: This is an | 10 - 42 U/L | [facility] | | | | appended report. These | | [facility] | | | | results have been | | MEDICAL | | | | appended to a previously | | CENTER - | | | | preliminary verified | | LABORATORY | | | | report. | | | | + + + + + + | ALT | 26Comment: This is an | 6 - 45 U/L | [facility] | | | | appended report. These | | [facility] | | | | results have been | | MEDICAL | | | | appended to a previously | | CENTER - | | | | preliminary verified | | LABORATORY | | | | report. | | | | + + + + + + | Alkaline | 121 (H)Comment: This is | 40 - 110 U/L | [facility] | | | Phosphatase | an appended report. | | [facility] | | | | These results have been | | MEDICAL | | | | appended to a previously | | CENTER - | | | | preliminary verified | | LABORATORY | | | | report. | | | | + + + + + + | Globulin | 2.2 | 2.1 - 3.8 g/dL | [facility] | | | | | | [facility] | | | | | | MEDICAL | | | | | | CENTER - | | | | | | LABORATORY | | + + + + + + | Albumin/Kiera | 2.0 | 0.8 - 2.0 | [facility] | | | bulin Ratio | | | [facility] | | | | | | MEDICAL | | | | | | CENTER - | | | | | | LABORATORY | | + + + + + + | BUN/Creatin | 11.8 | | [facility] | | | ine Ratio | | | [facility] | | | | | | MEDICAL | | | | | | CENTER - | | | | | | LABORATORY | | + + + + + + + + | Specimen | + + | Blood | + + + + + + + | Performing | Address | City/State/Zipcode | Phone Number | | Organization | | | | + + + + + | [facility] | [address] | [place] | [phone] | | [facility] | | [address] | | | - LABORATORY | | | | + + + + + CBC with Differential (11/30/2016 4:29 PM PDT) + +-------+ + + + | Component | Value | Ref Range | Performed | Pathologist | | | | | At | Signature | + +-------+ + + + | White Blood | 9.5 | 4.0 - 11.0 K/uL | [facility] | | | Cells | | | [facility] | | | | | | MEDICAL | | | | | | CENTER - | | | | | | LABORATORY | | + +-------+ + + + | Red Blood | 4.87 | 3.70 - 5.20 | [facility] | | | Cells | | M/uL | [facility] | | | | | | MEDICAL | | | | | | CENTER - | | | | | | LABORATORY | | + +-------+ + + + | Hemoglobin | 14.4 | 11.5 - 16.0 | [facility] | | | | | g/dL | [facility] | | | | | | [facility] | | | | | | CENTER - | | | | | | LABORATORY | | + +-------+ + + + | Hematocrit | 42.6 | 34.0 - 47.0 % | [facility] | | | | | | [facility] | | | | | | MEDICAL | | | | | | CENTER - | | | | | | LABORATORY | | + +-------+ + + + | MCV | 87.4 | 83.0 - 101.0 fL | [facility] | | | | | | [facility] | | | | | | MEDICAL | | | | | | CENTER - | | | | | | LABORATORY | | + +-------+ + + + | MCH | 29.5 | 28.0 - 35.0 pg | [facility] | | | | | | [facility] | | | | | | MEDICAL | | | | | | CENTER - | | | | | | LABORATORY | | + +-------+ + + + | MCHC | 33.8 | 32.0 - 36.0 | [facility] | | | | | g/dL | [facility] | | | | | | MEDICAL | | | | | | CENTER - | | | | | | LABORATORY | | + +-------+ + + + | RDW-CV | 14.4 | <15.0 % | [facility] | | | | | | [facility] | | | | | | MEDICAL | | | | | | CENTER - | | | | | | LABORATORY | | + +-------+ + + + | Platelet | 225 | 140 - 440 K/uL | [facility] | | | Count | | | [facility] | | | | | | MEDICAL | | | | | | CENTER - | | | | | | LABORATORY | | + +-------+ + + + | MPV | 10.0 | fL | [facility] | | | | | | [facility] | | | | | | MEDICAL | | | | | | CENTER - | | | | | | LABORATORY | | + +-------+ + + + | % | 65.7 | 45.0 - 82.0 % | [facility] | | | Neutrophils | | | [facility] | | | | | | MEDICAL | | | | | | CENTER - | | | | | | LABORATORY | | + +-------+ + + + | % | 24.1 | 20.0 - 45.0 % | [facility] | | | Lymphocytes | | | [facility] | | | | | | MEDICAL | | | | | | CENTER - | | | | | | LABORATORY | | + +-------+ + + + | % Monocytes | 7.6 | 4.0 - 12.0 % | [facility] | | | | | | [facility] | | | | | | MEDICAL | | | | | | CENTER - | | | | | | LABORATORY | | + +-------+ + + + | % | 1.8 | 0.0 - 5.0 % | [facility] | | | Eosinophils | | | [facility] | | | | | | MEDICAL | | | | | | CENTER - | | | | | | LABORATORY | | + +-------+ + + + | % Basophils | 0.8 | 0.0 - 1.0 % | [facility] | | | | | | [facility] | | | | | | MEDICAL | | | | | | CENTER - | | | | | | LABORATORY | | + +-------+ + + + | Absolute | 6.20 | 1.80 - 8.50 | [facility] | | | Neutrophils | | K/uL | [facility] | | | | | | MEDICAL | | | | | | CENTER - | | | | | | LABORATORY | | + +-------+ + + + | Absolute | 2.30 | 0.60 - 3.20 | [facility] | | | Lymphocytes | | K/uL | [facility] | | | | | | MEDICAL | | | | | | CENTER - | | | | | | LABORATORY | | + +-------+ + + + | Absolute | 0.70 | 0.00 - 1.00 | [facility] | | | Monocytes | | K/uL | [facility] | | | | | | MEDICAL | | | | | | CENTER - | | | | | | LABORATORY | | + +-------+ + + + | Absolute | 0.20 | 0.00 - 0.40 | [facility] | | | Eosinophils | | K/uL | [facility] | | | | | | MEDICAL | | | | | | CENTER - | | | | | | LABORATORY | | + +-------+ + + + | Absolute | 0.10 | 0.00 - 0.10 | [facility] | | | Basophils | | K/uL | [facility] | | | | | | MEDICAL | | | | | | CENTER - | | | | | | LABORATORY | | + +-------+ + + + + + | Specimen | + + | Blood | + + + + + + + | Performing | Address | City/State/Zipcode | Phone Number | | Organization | | | | + + + + + | [facility] | [address] | [place] | [phone] | | [facility] | | [address] | | | - LABORATORY | | | | + + + + + documented in this encounter Visit Diagnoses + + | Diagnosis | + + | Hypokalemia - Primary Hypopotassemia | + + | Leg swelling Swelling of limb | + + documented in this encounter Administered Medications + +--------+ +--------+------+------+ | Medication Order | MAR | Action | Dose | Rate | Site | | | Action | Date | | | | + +--------+ +--------+------+------+ | potassium chloride (K-DUR) ER | Given | 12/01/19 | 40 mEq | | | | tablet 40 mEq 40 mEq, Oral, | | 17 5:42 | | | | | ONCE, 11/30/16 at 1710, For 1 | | PM PDT | | | | | dose, Tablet may be cut where | | | | | | | scored but do not crush., | | | | | | + +--------+ +--------+------+------+ +---+---+ | | | +---+---+ documented in this encounter
--- OUTSIDE RECORDS SUMMARY | ~2020-03-26 | XMS | Encounter Summary ---
Demographics + + + | Address | [address] [place] [address] | | | [place] [address] | + + + | Home Phone | | + + + | Preferred Language | Unknown | + + + | Marital Status | | + + + | [employer] Affiliation | Unknown | + + + [...] + | Jamie Sheoships | ECON | [address] | | | | | [place] [address] | | + + + + + Care Team Providers + +------+ + | Care Construction Controller Name | Role | Phone | + +------+ + PCP | Unavailable | + +------+ + Encounter Details +--------+ + + + + | Date | Type | Department | Care Team | Description | +--------+ + + + + | 01/27/ | [facility] | [facility] | | | | 2000 | Encounter | [facility] | | | | | | [address] | | | | | | [place] | | | | | | [address] | | | | | | [phone] | | | +--------+ + + + [...]
--- OUTSIDE RECORDS SUMMARY | ~2020-03-26 | XMS | Encounter Summary ---
Demographics + + + | Address | [address] | | | [place] [address] | + + + | Home Phone | | + + + | Preferred Language | Unknown | + + + | Marital Status | | + + + | Mandaeism Affiliation | CAT | + + + | Race | or | + + + | Ethnic Group | Not or | + + + Author + + + | Author | [facility] [employer] [facility] [employer] [facility] | + + + | Organization | [facility] | + + + | Address | Unknown | + + + | Phone | Unavailable | + + + Support + + +---------+ + | Name | Relationship | Address | Phone | + + +---------+ + | Jamie Onofre | ECON | Unknown | | + + +---------+ + Care Team Providers + +------+ + | Care Outer Diameter Technician Name | Role | Phone | + +------+ + | Med Quintero MD | PCP | | + +------+ + Encounter Details +--------+ + + + + | Date | Type | Department | Care Team | Description | +--------+ + + + + | 06/25/ | Telephone | [facility] | Danni Jordan, | | | 2018 | | [facility] | [place], [place] | | | | | [address] | [address] | | | | | [address] | | | | | | [place], [address] [place] [address] | | | | | | [place], [place] | | | | | | [address] | | | | | | [phone] | | | +--------+ + + + [...] this encounter Miscellaneous Notes Telephone Encounter - Danni Jordan LCSW - 07/05/2019 1:46 PM PSTCall to Verena and no a nswer. She called me right back. She was happy to accept the [facility] referral a lthough she is nervous about finding her way to the [facility] in her car. She has bee n coming to [facility] for years, bringing her grandson to many appointments, so sh knows the [facility] building and parking well. We talked about her parking there for her appt on 07/16 and then meeting with me so I can help her figure out how to get to the [facility] by car. I have sent [facility] a request for them to screen patient and then set her up at [facility] for , and . She will be at the hospital on the night of the . Danni Jordan LCSW Telephone Encounter - Danni Jordan LCSW - 06/25/2019 4:55 PM PSTCall to Verena to talk w ith her about staying in [place] after her surgery, likely on August 02, 2019. I was not a ble to leave a voice mail and she did not answer. I will talk with her about being referred to [facility]. Her provider would like her to stay in the area for two days after discharge. I will keep trying to reach this patient and see if she would like me to refer her to [facility]. Danni Jordan LCSW documented in this encounter Plan of Treatment Not on filedocumented as of this encounter Visit Diagnoses Not on filedocumented in this encounter"
--- OUTSIDE RECORDS SUMMARY | ~2020-03-26 | XMS | Encounter Summary ---
Demographics + + + | Address | [address] | | | [place] [address] | + + + | Home Phone | | + + + | Preferred Language | Unknown | + + + | Marital Status | | + + + | Pentecostalism Affiliation | CAT | + + + | Race | or | + + + | Ethnic Group | Not or | + + + Author + + + | Author | [employer] [facility] [employer] | + + + | Organization | [facility] | + + + | Address | Unknown | + + + | Phone | Unavailable | + + + Support + + +---------+ + | Name | Relationship | Address | Phone | + + +---------+ + | Jamie Onofre | ECON | Unknown | | + + +---------+ + Care Team Providers + +------+ + | Care Optical Instrument Repairer Name | Role | Phone | + +------+ + | Med Quintero MD | PCP | | + +------+ + Reason for Visit + + + | Reason | Comments | + + + | Pre-operative | | | evaluation | | + + + Encounter Details +--------+---------+ + + + | Date | Type | Department | Care Team | Description | +--------+---------+ + + + | 07/16/ | Office | Preoperative | Geri Payton FNP | Preop examination | | 2020 | Visit | Medicine Clinic at | [address] | (Primary Dx); Urge | | | | [facility] [place] | [place], [place] | incontinence; Female | | | | [address] | [address] | bladder prolapse; | | | | [facility] | [phone] | Gastroesophageal | | | | and Healing, | | reflux disease, | | | | [address] | | esophagitis presence | | | | [place], [place] | | not specified; | | | | [address] | | Hypertension, | | | | [phone] | | unspecified type; | | | | | | Gout, unspecified | | | | | | cause, unspecified | | | | | | chronicity, | | | | | | unspecified site; | | | | | | History of breast | | | | | | cancer | +--------+---------+ + + + Anesthesia Record + + [...] + + + | Blood Pressure | 138/74 | 07/16/2019 1:22 PM | | | | | PST | | + + + + + | Pulse | 71 | 07/16/2019 1:22 PM | | | | | PST | | + + + + + | Temperature | 36.2 C (97.2 F) | 07/16/2019 1:22 PM | | | | | PST | | + + + + + | Respiratory Rate | 12 | 07/16/2019 1:22 PM | | | | | PST | | + + + + + | Oxygen Saturation | 100% | 07/16/2019 1:22 PM | | | | | PST | | + + + + + | Inhaled Oxygen | - | - | | | Concentration | | | | + + + + + | Weight | 61.7 kg (136 lb) | 07/16/2019 1:22 PM | | | | | PST | | + + + + + | Height | 157.5 cm (5' 2") | 07/16/2019 1:22 PM | | | | | PST | | + + + + + | Body Mass Index | 24.87 | 07/16/2019 1:22 PM | | | | | PST | | + + + + + documented in this encounter Patient Instructions Patient Instructions Geri Payton, BOOMBOAT OPERATOR - 07/16/2019 1:20 PM PST PREOPERATIVE INSTRUCTIONS Pre-surgery "homework" * If you have not already done so, please consider getting your flu vaccine before surgery. This is safe and effective before a surgery and recovery. * Unless otherwise instructed by your surgeon, stay active between now and surgery, even st riving to increase your activity levels if you can (ex. taking at least one walk daily, even around the block). This can help speed your surgery recovery. * Follow any nutrition recommendations from your surgeon (including special diet or nutriti onal supplements) Surgery check-in location: [address] [facility]st [address] [employer] Surgery Check in Time: you will receive a call 1-3 business days before your surgery confi rming your exact arrival/check-in time for your surgery day. We know that planning for surg april can be stressful and involve a lot of family/friend/transportation coordination as well as hotel arrangements. The [facility] does not have access to check in [facility], and we encourage you to contact your surgeon's office for any assistance planning aroun d a tentative arrival time. Empty stomach before surgery On the day BEFORE your surgery, drink plenty of fluids and stay well hydrated NOTHING to eat or drink after midnight the night before surgery. This includes water, coffee, candy, mints, gum. Medications Instructions On the evening before your surgery, take ALL your usual evening medications On the morning of surgery TAKE the following medications with a sip of water: Allopurinol amlodipine omeprazole Other medications not specifically mentioned are at your discretion as to taking or not taking on the morning of surgery. Unless otherwise directed by your surgeon, do not take any Aspirin, fish oil supplements , vitamin E or non-steroidal anti-inflammatory (NSAIDs i.e. Advil, Aleve, Ibuprofen) or herb al supplements 7 days prior to your surgery. These drugs may interfere with normal blood karmen tting and may cause excessive bleeding and bruising during or after the surgery. If you need a pain medication for general purposes, use Tylenol as directed. OK to take it even on the morning of surgery, if needed. If you are in doubt about any medications that you are taking, please contact our office . Other Important Guidelines ? Do not shave the surgical area ? Do not smoke, drink alcohol or use recreational drugs for 24 hours before your surgery Watch for any change in your health condition. Let your surgeon know right away if you do not feel well--this includes calling if you think you are developing a "cold" in the days before your surgery. ? Do not wear makeup, perfume, lotions, deodorant, powder or hairspray. Do not wear any jewelry to the hospital. Wear loose, comfortable clothing. Leave all your valuables at home. Allow enough travel time so you re not late for your check in for surgery. ? Take a bath or shower and remember to shampoo your hair using your usual hair product bef ore your arrival at the hospital ? Please remember to brush your teeth the night before and the morning of your procedure. Preventing post op complications while you are in the hospital Use an incentive spirometer or peep breathe to keep your lungs working properly an d to help prevent respiratory complications. It helps you take long, deep breaths. Use it at least once every hour while you are awake. Leg and feet exercises will maintain good circulation and help prevent blood clots in yo ur legs. Sometimes your doctor will order sequential air compression stockings. Compressed air helps the circulation in your legs. Walking and moving will help stimulate normal circulation and deep breathing. Going Home Your surgical team will decide when you are medically ready to go home. If you stayed in the hospital after surgery, please discuss anticipated discharge time a nd plans with your inpatient team so that transportation plans and other going home arrangem ents can be coordinated If you have questions or concerns after you go home, call your doctor s office. If it is after office hours, call the [facility] bander operator at [phone] and ask them to page him or h er. documented in this encounter Progress Notes Geri Payton FNP - 07/16/2019 1:20 PM PST PRE-OPERATIVE MEDICINE CLINIC ([facility]) CONSULT NOTE Author: ESTEVAN Elias Referring Physician: Elvia Shah MD Primary Care Provider: Med Quintero MD Reason for Consult: Preoperative evaluation and risk assessment Proposed Procedure/Date: COLPOCLEISIS LE FORTE; REPAIR OF ENTEROCELE, VAGINAL APPROACH; COM BINED ANTEROPOSTERIOR COLPORRHAPHY; POSTERIOR COLPORRHAPHY, WITH OR WITHOUT PERINEORRHAPHY; TVT SLING OPERATION; REVISION/REMOVAL OF VAGINAL GRAFT; VAGINAL APPROACH; CYSTOURETHROSCOPY on 08/02/19 Proposed Procedure Location: [facility] HISTORY OF PRESENT ILLNESS: Verena Onofre is a 69 y.o. female here for preoperative evaluation of medical comorbid conditions and risk assessment in anticipation of the above procedure. The patient's history is significant for urge incontinence and prolapse of bladd er. Pertinent medical conditions and/or prior cardiopulmonary testing reviewed during this visi t: H/o Breast cancer--s/p lumpectomy 2010 GERD--well controlled with omeprazole. 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 amLODIPine 10 mg oral tablet Take 10 mg by mouth once daily. aspirin EC 81 mg oral tablet,delayed release (DR/EC) Take 81 mg by mouth once daily. omeprazole 20 mg oral capsule,delayed release(DR/EC) Take 20 mg by mouth once daily. Level of confidence in medication reconciliation accuracy: High Allergies reviewed / updated Allergies Allergen Reactions Penicillins Unknown Past medical history reviewed / updated Past Medical History: Diagnosis Date Breast cancer (HCC) 2010 s/p lumpectomy and XRT GERD (gastroesophageal reflux disease) History of prediabetes Hypertension Past surgery reviewed / updated Past Surgical History Procedure Laterality Date Rectocele repair 04/24/2011 with dermis reinforcement Repair of cystocele with mesh 04/24/2011 with Prolene mesh, vault suspension Anterior and posterior vaginal repair 1999 with enterocele resection Bilateral tubal ligation Darryl-bso (total abdominal hysterectomy and bilateral salpingo-oophorectomy) 1994 with needle suspension and anterior repair Laparoscopic cholecystectomy Breast lumpectomy Left Urethropexy using midurethral sling by transobturator approach 04/24/2011 Social history reviewed / updated Social History Tobacco Use Smoking status: Former Smoker Smokeless tobacco: Never Used Substance Use Topics Alcohol use: Not Currently Drug use: Not on file PHYSICAL EXAM: Last Vitals: BP 138/74 | Pulse 71 | Temp 36.2 C (97.2 F) (Forehead) | Resp 12 | Ht 1.575 m (5' 2") | Wt 61.7 kg (136 lb) | SpO2 100% | BMI 24.87 kg/m | BSA 1.64 m Bod y mass index is 24.87 kg/m. General: Appearance: Age appropriate and No distress [...] Warm Other Implanted Devices: Implanted devices: None LABS & DATA REVIEWED/ORDERED No results found for: WBC, HB, HCT, PLT, MCV, RDW No results found for: NA, K, CL, BICARB, BUN, CR, GLU, CA, AST, ALT, AP, TBILI, TP, ALB, DI RBILI No results found for: ABO, RH No results found for: A1C EKG: Personally reviewed. SR Results for orders placed or performed in visit on 07/16/19 12 LEAD ECG Result Value Ref Range VENTRICULAR RATE 70 bpm ATRIAL RATE 70 ms P-R INTERVAL 137 ms P AXIS 9 deg QRS DURATION 80 ms QT 404 ms QTC-BAZETT 438 ms R AXIS 14 deg T AXIS -41 deg ECG IMPRESSION Sinus rhythm ECG IMPRESSION Nonspecific repol abnormality, lateral leads- ABNORMAL ECG - ECG IMPRESSION Electronically signed by: PRELIMINARY - Unconfirmed Perioperative risk evaluation: 2014 ACC/AHA Perioperative Cardiac Risk Stratification for non-emergent, non-cardiac surger y Are active cardiac conditions present? No Calculate the combined surgical and patient-specific risk: using the Romero perioperative ca rdiac risk calculator, the risk of major adverse cardiac event (MACE) is: less than 1%. No further risk stratification for coronary disease is indicated. Estimated ASA class 2 Other perioperative risk calculators: Not Applicable ASSESSMENT and RECOMMENDATIONS: Perioperative risk assessment: Verena Onofre is a 69 y.o. female referred for p re-operative evaluation and risk assessment before the above surgery for the above surgical indications. Based on the clinical information obtained and reviewed during this visit, the overall assessment is that the patient is having Intermediate risk surgery with identified risk factors. The patient is stable / optimized for surgery: Additional testing needed: no Additional optimization needed: no Venue: [facility] is appropriate based on this patients comorbid conditions and rjk-uf-hztckvs care coordination needs Medication management recommendations: The patient was advised to continue all usual med ications except as noted in Patient Instructions (After Visit Summary given to pt) H/o Breast cancer--s/p lumpectomy 2010 GERD--well controlled with omeprazole. Advised to continue day of surgery HTN--well controlled with amlodipine, advised to continue day of surgery H/o prediabetes--managed with diet Gout--managed with allopurinol I counseled Verena Ferguson Mónicaabi regarding perioperative risk (cardiac/bleeding/ DVT/ res piratory failure/ infection, etc.) and methods to mitigate risk. I advised the patient rega rding NPO requirements, hydration before surgery, showering, general body hygiene. All pre- procedure instructions given to the patient (after-visit summary). All of patient's questio ns were addressed. The patient verbalized understanding of the instructions given. Thank no richards for the opportunity to contribute to this patient's care. ESTEVAN Elias [facility] [address] [address] [phone] (fax) docu mented in this encounter Plan of Treatment Not on filedocumented as of this encounter Procedures + +--------+ + + + | Procedure Name | Priori | Date/Time | Associated Diagnosis | Comments | | | ty | | | | + +--------+ + + + | 12 LEAD ECG | Routin | 07/16/2019 | Preop examination | Results for this | | | e | 1:34 PM | | procedure are in the | | | | PST | | results section. | + +--------+ + + + documented in this encounter Results 12 LEAD ECG (07/16/2019 1:34 PM PST) + + + + + + | Component | Value | Ref Range | Performed | Pathologist | | | | | At | Signature | + + + + + + | VENTRICULAR | 70 | bpm | [facility] | | | RATE | | | OF | | | | | | CARDIOLOGY | | + + + + + + | ATRIAL RATE | 70 | ms | [facility] | | | | | | OF | | | | | | CARDIOLOGY | | + + + + + + | P-R | 137 | ms | [facility] | | | INTERVAL | | | OF | | | | | | CARDIOLOGY | | + + + + + + | P AXIS | 9 | deg | [facility] | | | | | | OF | | | | | | CARDIOLOGY | | + + + + + + | QRS | 80 | ms | [facility] | | | DURATION | | | OF | | | | | | CARDIOLOGY | | + + + + + + | QT | 404 | ms | [facility] | | | | | | OF | | | | | | CARDIOLOGY | | + + + + + + | BRANDIN | 438 | ms | [facility] | | | | | | OF | | | | | | CARDIOLOGY | | + + + + + + | R AXIS | 14 | deg | [facility] | | | | | | OF | | | | | | CARDIOLOGY | | + + + + + + | T AXIS | -41 | deg | [facility] | | | | | | OF | | | | | | CARDIOLOGY | | + + + + + + | ECG | Sinus rhythm | | [facility] | | | IMPRESSION | | | OF | | | | | | CARDIOLOGY | | + + + + + + | ECG | Nonspecific repol | | [facility] | | | IMPRESSION | abnormality, lateral | | OF | | | | leads- ABNORMAL ECG - | | CARDIOLOGY | | + + + + + + | ECG | Electronically signed | | [facility] | | | IMPRESSION | by: PAMELLA HEREDIA | | OF | | | | 07-17-2019 08:48:03 | | CARDIOLOGY | | + + + + + + + + | Specimen | + + | | + + + + + | Narrative | Performed At | + + + | | | + + + + + + + + | Performing | Address | City/State/Zipcode | Phone Number | | Organization | | | | + + + + + | [facility] | [address] | [place], [place] | | | CARDIOLOGY | [address] | [address] | | + + + + + documented in this encounter Visit Diagnoses + + | Diagnosis | + + | Preop examination - Primary Preoperative examination, unspecified | + + | Urge incontinence | + + | Female bladder prolapse Cystocele, midline | + + | Gastroesophageal reflux disease, esophagitis presence not specified | + + | Hypertension, unspecified type | + + | Gout, unspecified cause, unspecified chronicity, unspecified site | + + | History of breast cancer Personal history of malignant neoplasm of breast | + + documented in this encounter
--- OUTSIDE RECORDS SUMMARY | ~2020-03-26 | XMS | Encounter Summary ---
Demographics + + + | Address | [address] | | | [place] [address] | + + + | Home Phone | | + + + | Preferred Language | Unknown | + + + | Marital Status | | + + + | Adventism Affiliation | CAT | + + + | Race | or | + + + | Ethnic Group | Not or | + + + Author + + + | Author | [employer] [facility] [employer] [facility] | + + + | Organization | [facility] | + + + | Address | Unknown | + + + | Phone | Unavailable | + + + Support + + +---------+ + | Name | Relationship | Address | Phone | + + +---------+ + | Jamie Onofre | ECON | Unknown | | + + +---------+ + Care Team Providers + +------+ + | Care Eye Technician Name | Role | Phone | + +------+ + | Med Quintero MD | PCP | | + +------+ + Reason for Visit Intake Referral (Routine) + +--------+ + + + + | Status | Reason | Specialty | Diagnoses / | Referred By | Referred To | | | | | Procedures | Contact | Contact | + +--------+ + + + + | Authorized | | Obstetrics & | Diagnoses | Ingrid | [facility] | | | | Gynecology | Vaginal | MD Med | [address] | | | | | prolapse | [address] | | | | | Cystocele | Way [address] | [address] | | | | | Procedures | [address] | Pavilion, [address]th | | | | | ME NEW | [place], | floor | | | | | PATIENT | [place] [address] | [place], [place] | | | | | LEVEL V ME | Phone: | [phone] | | | | | EST PATIENT | [phone] | Phone: | | | | | LEVEL V ME | Fax: | [phone] | | | | | CYSTOURETHRO | [phone] | Fax: | | | | | SCOPY ME | | [phone] | | | | | CYSTOURETHRO | | | | | | | SCOPY,W INJ | | | | | | | CHEMODENV | | | | | | | BLDR ME | | | | | | | BOTULINUM | | | | | | | TOXIN A PER | | | | | | | UNIT ME | | | | | | | CYSTOMETROGR | | | | | | | AM W/VISCOSITY TESTER&UP | | | | | | | ME | | | | | | | INTRAABDOMIN | | | | | | | AL PRESSURE | | | | | | | TEST ME | | | | | | | ELECTRO-UROF | | | | | | | LOWMETRY, | | | | | | | FIRST ME | | | | | | | ANAL/URINARY | | | | | | | MUSCLE | | | | | | | STUDY ME | | | | | | | URETHROCYSTO | | | | | | | GRAM+VOIDING | | | | | | | ME | | | | | | | [...] + + | 07/16/ | Office | [facility] | Elvia Shah, | Vaginal vault | | 2020 | Visit | [facility] | [address] | prolapse (Primary | | | | [address] | [address] | Dx); Urge | | | | [address] | [place], [place] | incontinence; Preop | | | | [address], [address] floor | [address] | examination; | | | | [place], [place] | [phone] | Hematuria, | | | | [address] | | unspecified type | | | | [phone] | | | +--------+---------+ + + + [...] + + + | Blood Pressure | 151/70 | 07/16/2019 4:56 PM | | | | | PST | | + + + + + | Pulse | 66 | 07/16/2019 4:56 PM | | | | | PST | | + + + + + | Temperature | 36.4 C (97.6 F) | 07/16/2019 4:56 PM | | | | | PST | | + + + + + | Respiratory Rate | - | - | | + + + + + | Oxygen Saturation | 99% | 07/16/2019 4:56 PM | | | | | PST | | + + + + + | Inhaled Oxygen | - | - | | | Concentration | | | | + + + + + | Weight | - | - | | + + + + + | Height | - | - | | + + + + + | Body Mass Index | - | - | | + + + + + documented in this encounter Progress Notes Elvia Shah MD - 07/16/2019 4:00 PM PSTI verified the history with the patient and was present for the exam and counseling. I agree with the plan of care as outlined below. I was present for all procedures as documented below in their entirety. Elvia Shah MD [facility] AT [address] [email or web address] [phone] signed by Elvia Shah MD at 07/19/2019 10:55 AM Kaylin Bustillo MD - 07/16/2019 4:00 PM PSTHPI: Ms. Onofre is a G P reporting the following p sharon: Pelvic prolapse Female Pelvic Medicine and Reconstructive Surgery Follow-Up/ Pre-op Visit/ Urodynamics Verena Onofre is a 69 y.o. [place] woman with h/o breast cance r s/p lumpectomy and XRT, GERD, prediabetes, HTN who presents for pre-operative visit. 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 Presents today for UDS, cystoscopy, pre-op appointment to sign consents Procedure: complete colpocleisis, perineorrhaphy, possible anterior repair, possible route deliverer ior repair, possible trans-vaginal taping mid-urethral sling, cystourethroscopy scheduled on 08/02/[address] Shah Urodynamics: today [facility] visit: today at 1:20 PM She today reports she is ready to proceed with surgery for her prolapse. Feels comfortable with decision for colpocleisis. Reports sometimes has urgency and UUI. Also sometimes feels FAVIOLA. The past medical history, surgical history, family history, social history, and current med ications updated in [facility]. PHYSICAL EXAM BP 151/70 | Pulse [...] uploa ded into the media tab in [facility]. INDICATIONS FOR CYSTOSCOPY: Hematuria ANESTHESIA FOR CYSTOSCOPY: 2% Xylocaine Jelly to Urethra 2% Intravesical Lidocaine CYSTOSCOPE USED: Flexible Olympus SN [id number] PROCEDURE: Cystoscope was removed FINDINGS ON CYSTOSCOPY: [...] Major Surgery Recommended (procedures below): Colpocleisis, Complete 43380 Perineorrhaphy/Perineoplasty 32758 Ant & Post colporrhaphy 41579 Cystoscopy 52014 PAR held, the following issues discussed: Bleeding [...] no voicemail reached. En counter routed to skein spooler to call patient next week and clarify clear liquids encouraged fro m midnight until 4 hours before surgery, when she needs to be NPO. - she will stay at [facility] overnight. Patient will likely stay in the area one more day before driving home >200 miles. She is going to assess if family member will accompany, though of n ote her family has a young baby with special needs coming to [place] frequently so she may be coming on [...] Female Pelvic Medicine & Reconstructive Surgery Fellow Ana Cristina Barragan RN - 07/16/2019 4:00 PM PSTUDS prep: Per delegation protocol: Pt voided 7 mL of urine. Patient reports voiding immediately befor e UDS appt. Pt urethra prepped with betadine. 14 australian straight cath through pts external u rethra. 10 mL of clear yellow urine collected for PVR. UA performed on specimen. T-DOC air c harged catheters placed in urethra and rectum. EMG electrodes placed around external anal sp hincter. Catheterized urine specimen sent for urine C+S and micro per verbal order from provider. Cysto prep: Pts urethra cleaned with betadine. 5 mL of Lidocaine HYDROCHLORIDE Jelly DETENTION, 2% 100 mg (20 mg/mL) inserted through pts urethra. documented in this enc ounter Plan of Treatment Not on filedocumented as of this encounter Procedures + +--------+ + + + | Procedure Name | Priori | Date/Time | Associated Diagnosis | Comments | | | ty | | | | + +--------+ + + + | ME CYSTOMETROGRAM | Routin | 07/16/2019 | Vaginal vault | | | W/VISCOSITY TESTER&UP | e | 5:46 PM | prolapse | | | | | PST | | | + +--------+ + + + | ME INTRAABDOMINAL | Routin | 07/16/2019 | Vaginal vault | | | VOIDING PRESSURE | e | 5:46 PM | prolapse | | | STUDY,AP,GLOBAL | | PST | | | + +--------+ + + + | ME ANAL/URETHRAL SPH | Routin | 07/16/2019 | Vaginal vault | | | MUSC STUDY,GLOBL | e | 5:46 PM | prolapse | | | | | PST | | | + +--------+ + + + | ME | Routin | 07/16/2019 | Vaginal vault | | | UROFLOWMETRY,COMPLEX | e | 5:46 PM | prolapse | | | ,GLOBAL | | PST | | | + +--------+ + + + | ME CYSTOURETHROSCOPY | Routin | 07/16/2019 | Urge incontinence | | | | e | 5:46 PM | Hematuria, | | | | | PST | unspecified type | | + +--------+ + + + | URINE CULTURE WORKUP | Routin | 07/16/2019 | Urge incontinence | Results for this | | | e | 4:47 PM | | procedure are in the | | | | PST | | results section. | + +--------+ + + + | CULTURE, URINE [facility] | Routin | 07/16/2019 | Urge incontinence | Results for this | | | e | 4:47 PM | | procedure are in the | | | | PST | | results section. | + +--------+ + + + | URINE, MICROSCOPIC | Routin | 07/16/2019 | Urge incontinence | Results for this | | EXAM | e | 4:47 PM | | procedure are in the | | | | PST | | results section. | + +--------+ + + + | CULTURE, URINE BACTI | Routin | 07/16/2019 | Urge incontinence | Results for this | | | e | 4:47 PM | | procedure are in the | | | | PST | | results section. | + +--------+ + + + | UA DIPSTICK 10 DIP | Routin | 07/16/2019 | Urge incontinence | Results for this | | W/O MICRO | e | 3:06 PM | | procedure are in the | | (AUTOMATED), POC | | PST | | results section. | + +--------+ + + + documented in this encounter Results URINE CULTURE WORKUP (07/16/2019 4:47 PM PST) + + | Specimen | + + | Urine - Urine | | (substance) | + + + + + | Narrative | Performed At | + + + | Culture Report: No growth (<1000 col/ml) | [facility] [place] | + + + + + + + + | Performing | Address | City/State/Zipcode | Phone Number | | Organization | | | | + + + + + | [facility] | [address] | [place] [address] | | | [place] | | | | + + + + + CULTURE, URINE CARMEN (07/16/2019 4:47 PM PST) + + + + + + | Component | Value | Ref Range | Performed | Pathologist | | | | | At | Signature | + + + + + + | URINE | See Cx Results (A) | | [facility] | | | CULTURE | | | LABORATORY | | | [facility] | | | SERVICES, | | | [...] [facility] | [address] | [place] [address] | | | SERVICES, CORE | [address] | | | + + + + + URINE, MICROSCOPIC EXAM (07/16/2019 4:47 PM PST) + +---------+ + + + | Component | Value | Ref Range | Performed | Pathologist | | | | | At | Signature | + +---------+ + + + | RED CELLS | 3 | 0 - 3 /hpf | [facility] | | | | | | LABORATORY | | | | | | SERVICES, | | | | | | CORE | | + +---------+ + + + | WHITE CELLS | 1 | 0 - 5 /hpf | [facility] | | | | | | LABORATORY | | | | | | SERVICES, | | | | | | CORE | | + +---------+ + + + | BACTERIA | None | None /hpf | [facility] | | | | | | LABORATORY | | | | | | SERVICES, | | | | | | CORE | | + +---------+ + + + | YEAST (LAB) | None | None /hpf | [facility] | | | | | | LABORATORY | | | | | | SERVICES, | | | | | | CORE | | + +---------+ + + + | SQUAMOUS | Few | None, Few /hpf | [facility] | | | EPITHELIAL | | | LABORATORY | | | | | | SERVICES, | | | | | | CORE | | + +---------+ + + + | MUCOUS | None | None, Few /hpf | [facility] | | | | | | LABORATORY | | | | | | SERVICES, | | | | | | CORE | | + +---------+ + + + | NON-SQUAMBRAIN | Romero (A) | None /hpf | [facility] | | | S EPITH | | | LABORATORY | | | | | | SERVICES, | | | | | | CORE | | + +---------+ + + + | HYALINE | 0 | 0 - 2 /lpf | [facility] | | | CASTS | | | LABORATORY | | | | | | SERVICES, | | | | | | CORE | | + +---------+ + + + | GRANULAR | 0 | 0 - 2 /lpf | [facility] | | | CASTS | | | LABORATORY | | | | | | SERVICES, | | | | | | CORE | | + +---------+ + + + | CELLULAR | 0 | <=0 /lpf | [facility] | | | CASTS | | | LABORATORY | | | | | | SERVICES, | | | | | | CORE | | + +---------+ + + + | TRIPLE P04 | None | None, Few /hpf | [facility] | | | CRYSTALS | | | LABORATORY | | | | | | SERVICES, | | | | | | CORE | | + +---------+ + + + | CALCIUM | None | None, Few /hpf | [facility] | | | OXALATE | | | LABORATORY | | | ALYSSA | | | SERVICES, | | | | | | CORE | | + +---------+ + + + | URIC ACID | None | None, Few /hpf | [facility] | | | CRYSTALS | | | LABORATORY | | | | | | SERVICES, | | | | | | CORE | | + +---------+ + + + | AMORPHOUS | None | None, Few /hpf | [facility] | | | CRYSTALS | | | LABORATORY | | | | | | SERVICES, | | | | | | CORE | | + +---------+ + + + + + | Specimen | + + | Urine | + + + + + + + | Performing | Address | City/State/Zipcode | Phone Number | | Organization | | | | + + + + + | [facility] | [address] | [place] [address] | | | SERVICES, CORE | [address] | | | + + + + + UA 10 DIP, POC (07/16/2019 3:06 PM PST) + + + + + + | Component | Value | Ref Range | Performed | Pathologist | | | | | At | Signature | + + + + + + | COLOR (UA | Yellow | | [facility] - | | | DIP), POC | | | [facility] | | | | | | [facility] | | | | | | OF CARE | | | | | | TESTS | | + + + + + + | APPEARANCE | Clear | | [facility] - | | | (UA DIP), | | | [facility] | | | POC | | | [facility] | | | | | | OF CARE | | | | | | TESTS | | + + + + + + | LEUKOCYTES | Negative | Negative | [facility] - | | | (UA DIP), | | | [facility] | | | POC | | | [facility] | | | | | | OF CARE | | | | | | TESTS | | + + + + + + | NITRITES | Negative | Negative | [facility] - | | | (UA DIP), | | | [facility] | | | POC | | | [facility] | | | | | | OF CARE | | | | | | TESTS | | + + + + + + | UROBILINOGE | 0.2 | 0.2 - 1.0 | [facility] - | | | N (UA DIP), | | E.U./dL | [facility] | | | POC | | | [facility] | | [...] + + + | PH (UA | 6.0 | 5.0 - 8.0 | [facility] - | | | DIP), POC | | | [facility] | | | | | | [place] | | | | | | OF CARE | | | | | | TESTS | | + + + + + + | BLOOD (UA | Small (A) | Negative | [facility] - | | | DIP), POC | | | [facility] | | | | | | [place] | | | | | | OF CARE | | | | | | TESTS | | + + + + + + | SPECIFIC | 1.020 | 1.005 - 1.030 | [facility] - | | | GRAVITY (UA | | | [facility] | | | DIP), POC | | | [place] | [...] DIP), POC | | Trace mg/dL | [facility] | | | | | | [place] [...] + + + + + | [facility] | [address] | [place], [place] | | | [facility] | [address] | [address] | | | TESTS | | | | + + + + + documented in this encounter Visit Diagnoses + + | Diagnosis | + + | Vaginal vault prolapse - Primary Unspecified prolapse of vaginal shah | + + | Urge incontinence | + + | Preop examination Preoperative examination, unspecified | + + | Hematuria, unspecified type | + + documented in this encounter"
--- OUTSIDE RECORDS SUMMARY | ~2020-03-26 | XMS | Encounter Summary ---
Demographics + + + | Address | [address] [place] [address] | | | [place] [address] | + + + | Home Phone | | + + + | Preferred Language | Unknown | + + + | Marital Status | | + + + | Cheondoism Affiliation | Unknown | + + + | Race | White | + + + | Ethnic Group | Not or | + + + Author + + + | Author | [facility] | | | and [place] | + + + | Organization | [facility] | | | and [place] | + + + | Address | Unknown | + + + | Phone | Unavailable | + + + Support + + + + + | Name | Relationship | Address | Phone | + + + + + | Jamie Sheoships | ECON | [address] | | | | | [place] [address] | | + + + + + Care Team Providers + +------+ + | Care Rn Surgical Name | Role | Phone | + +------+ + PCP | Unavailable | + +------+ + Encounter Details +--------+ + + + + | Date | Type | Department | Care Team | Description | +--------+ + + + + | 04/06/ | Hospital | [facility] | | | | 2008 - | Encounter | [facility] | | | | | | [address] | | | | 05/06/ | | [place] | | | | 2008 | | [address] | | | | | | [phone] | | | +--------+ + + + [...]
--- OUTSIDE RECORDS SUMMARY | ~2020-03-26 | XMS | Encounter Summary ---
Demographics + + + | Address | [address] | | | [place] [address] | + + + | Home Phone | | + + + | Preferred Language | Unknown | + + + | Marital Status | | + + + | Zoroastrianism Affiliation | CAT | + + + [...] Team Providers + +------+ + | Care Spiritual Counselor Name | Role | Phone | + +------+ + | Med Quintero MD | PCP | | + +------+ + Encounter Details +--------+--------+ + + + | Date | Type | Department | Care Team | Description | +--------+--------+ + + + | 08/13/ | Travel | | | | | [...]
--- OUTSIDE RECORDS SUMMARY | ~2020-03-26 | XMS | Encounter Summary ---
Demographics + + + | Address | [address] | | | [place] [address] | + + + | Home Phone | | + + + | Preferred Language | Unknown | + + + | Marital Status | | + + + | Confucianism Affiliation | CAT | + + + | Race | or | + + + | Ethnic Group | Not or | + + + Author + + + | Author | [employer] [facility] [employer] | + + + | Organization | [facility] | + + + | Address | Unknown | + + + | Phone | Unavailable | + + + Support + + +---------+ + | Name | Relationship | Address | Phone | + + +---------+ + | Jamie Onofre | ECON | Unknown | | + + +---------+ + Care Team Providers + +------+ + | Care Tennis Player Name | Role | Phone | + [...] +--------+--------+ + + + + Encounter Details +--------+---------+ + + + | Date | Type | Department | Care Team | Description | +--------+---------+ + + + | 08/02/ | Surgery | [facility] | Elvia Shah, | COLPOCLEISIS LE | | 2019 | | [facility] | [address] | FORTE, REPAIR OF | | | | and Healing Surgery | [address] | ENTEROCELE, VAGINAL | | | | Center Admitting | [place], [place] | APPROACH, COMBINED | | | | Desk Located on the | [address] | ANTEROPOSTERIOR | | | | 4th floor [address] | [phone] | COLPORRHAPHY, | | | | [address] [place], | | POSTERIOR | | | | [place] [address] | | COLPORRHAPHY, WITH | | | | | | OR WITHOUT | | | | | | PERINEORRHAPHY, TVT | | | | | | SLING OPERATION, | | | | | | REVISION/REMOVAL OF | | | | | | VAGINAL GRAFT, | | | | | | VAGINAL APPROACH, | | | | | | CYSTOURETHROSCOPY | +--------+---------+ + + + Social History [...] + + + | Blood Pressure | 132/67 | 08/02/2019 12:30 PM | | | | | PST | | + + + + + | Pulse | 78 | 08/02/2019 12:30 PM | | | | | PST | | + + + + + | Temperature | 36.7 C (98.1 F) | 08/02/2019 12:16 PM | | | | | PST | | + + + + + | Respiratory Rate | 19 | 08/02/2019 12:30 PM | | | | | PST | | + + + + + | Oxygen Saturation | 100% | 08/02/2019 12:30 PM | | | | | PST [...] To contact your provider, please call the [facility] clinic at [phone] during daytime hours. During evening or weekend hours, please call the [facility] paging oper ator at [phone] and ask for the [employer] Teacher resident on-call. DISCHARGE MEDICATIONS Medication List START [...] issues, one of our ogynecologic team is environmental marketing representative at all times through the page diamond saw operator. Assuming that you are recovering fine [...] or dog food bags, or a vacuum mold cleaner. - Limit your exercise activities such [...] Tylenol more often than every 4 hours. [facility] dose over 24 hours is 4000mg. [...] or go swimming until we have g iven you permission to resume these activities. When [...] see that you recuperate and heal malia prabhakar documented in this encounter Medications at Time [...] accurate and current. Neel Schmidt MD Kaylin Bustillo MD - 0 07/16/2019 4:00 PM PSTHPI: Ms. Onofre is a G P reporting the following problems: Pelvic prolapse Female Pelvic Medicine and Reconstructive Surgery Follow-Up/ Pre-op Visit/ Urodynamics Verena Onofre is a 69 y.o. [place] woman with h/o breast cance r s/p [...] 05/05/19 0 / 0 / -1 -1 /- / NA She was last seen 06/16/19 and decided to proceed with colpocleisis instead of sacral colpo pexy as she is not currently sexually active (and hasn't been for 7 years) and wanted the mo st durable prolapse repair. Presents today for UDS, cystoscopy, pre-op appointment to sign consents Procedure: complete colpocleisis, perineorrhaphy, possible anterior repair, possible water treatment plant engineer ior repair, possible trans-vaginal taping mid-urethral sling, cystourethroscopy scheduled on 08/02/[address] Shah Urodynamics: today [facility] visit: today at 1:20 PM She today reports she is ready to proceed with surgery for her prolapse. Feels comfortable with decision for colpocleisis. Reports sometimes has urgency and UUI. Also sometimes feels FAVIOLA. The past medical history, surgical history, family history, social history, and current med ications updated in [facility]. PHYSICAL EXAM BP 151/70 | Pulse 66 [...] uploa ded into the media tab in EP[facility]. INDICATIONS FOR CYSTOSCOPY: Hematuria ANESTHESIA FOR CYSTOSCOPY: 2% Xylocaine Jelly to Urethra 2% Intravesical Lidocaine CYSTOSCOPE USED: Flexible Olympus SN [id number] PROCEDURE: Cystoscope was removed FINDINGS ON CYSTOSCOPY: [...] Major Surgery Recommended (procedures below): Colpocleisis, Complete 82049 Perineorrhaphy/Perineoplasty 85964 Ant & Post colporrhaphy 65218 Cystoscopy 42577 PAR held, the following issues discussed: Bleeding [...] no voicemail reached. En counter routed to maintenance worker swimming pool to call patient next week and clarify clear liquids encouraged fro m midnight until 4 hours before surgery, when she needs to be NPO. - she will stay at [facility] overnight. Patient will likely stay in the area one more day before driving home >200 miles. She is going to assess if family member will accompany, though of n ote her family has a young baby with special needs coming to [place] frequently so she may be coming on [...] RN - 08/02/2019 4:17 PM PSTNursing Handoff [facility] IP NURSE HANDOFF: [facility] course events: [...] this note might be different from the origina l. Patient: Verena Onofre : 1950 Date of procedure: 08/02/2019 Times Event Time In Procedure Start FriAug 02, 2019 1038 Procedure Stop FriAug 02, 2019 1207 Location: [facility] Surgeon(s) and Role: * Elvia Shah MD - Primary * Neel Schmidt MD - Fellow Staff: Loss Control Engineer: Ebony Lennon RN Scrub: ST Ligia Resident - Data Sciences Director: Renae Haynes MD Pre Op Dx N81.11 [...] Procedure Stop FriAug 02, 2019 1207 Location: [facility] Surgeon(s) and Role: * Elvia Shah MD - Primary * Neel Schmidt MD - Fellow Renae Haynes MD - PGY3 Staff: Loss Control Engineer: Ebony Lennon RN Scrub: ST Ligia Resident - Data Sciences Director: Renae Haynes MD Pre Op Dx N81.11 [...] | 1,000 mg 1,000 mg, oral, ONCE, 1 | | 20 9:57 | | | | | dose, [...] +---+---+ | | | +---+---+ + +-------+ +------+---+--------+ | bupivacaine-EPINEPHrine | Given | 08/02/19 | 8 mg | | Vagina | | (MARCAINE-EPINEPHRINE) 0.25 | | 20 12:01 | | | | | %-1:200,000 injection | | PM PST | | | | | INTRAPROCEDURE PRN, Starting Mon | | | | | | | 08/02/19 at 1142, Until Mon | | | | | | | 08/02/19 at 1213 | | | | | | + +-------+ +------+---+--------+ +-------+ +-------+---+---+ | Given | 08/02/19 | 26 mL | | | | | 20 11:42 | | | | | | AM [...] | | TWICE DAILY, First dose on Fri | | AM PST | | | [...] | | | | | NEEDED, Starting Fri08/02/19 at | | PM PST | | | | | 1206, Until Fri08/03/19 at 1642, | | | | | [...] | | | 08/02/19 at 1910, Until e | | | 08/03/19 at 1642, nausea/vomiting, [...] | | | | | 1206, Until Fri08/03/19 at 1642, | | | | | [...] tablet 1 dose, | | | Starting Fri08/02/19 at 1317, | | | Until Fri08/02/19 at 1318 | | + +---+ | | | + +---+ + +-------+ +--------+---+---+ | phenazopyridine (PYRIDIUM) | Given | 08/02/19 | 100 mg | | | | tablet 100 mg 100 mg, oral, | | 20 9:56 | | | | | ONCE, 1 dose, 08/02/19 at 0930 | | AM PST | | | | + +-------+ +--------+---+---+ +---+---+ | | | +---+---+ + +-------+ +-------+---+---+ | vasopresin-NS injection | Given | 08/02/19 | 27 mL | | | | INTRAPROCEDURE PRN, Starting Mon | | 20 10:39 | | | | | 08/02/19 at 1039, Until Mon | | AM PST | | | | | 08/02/19 at 1213 | | | | | | + +-------+ +-------+---+---+ +---+---+ | | | +---+---+ documented in this encounter
--- OUTSIDE RECORDS SUMMARY | ~2020-03-26 | XMS | Clinical Summary ---
Demographics + + + | Address | [address] | | | [place] [address] | + + + | Home Phone | | + + + | Preferred Language | Unknown | + + + | Marital Status | | + + + | Mormon Affiliation | CAT | + + + | Race | or | + + + | Ethnic Group | Not or | + + + Author + + + | Author | [facility] | + + + | Organization | [facility] | + + + | Address | Unknown | + + + | Phone | Unavailable | + + + Support + + +---------+ + | Name | Relationship | Address | Phone | + + +---------+ + | Jamie Onofre | ECON | Unknown | | + + +---------+ + Care Team Providers + +------+ + | Care Circulation Librarian Name | Role | Phone | + +------+ + | Med Quintero MD | PCP | | + +------+ + Source Comments CARMEN is fully live on both EpicCare Ambulatory and EpicCare InPatient.[facility] Allergies + + + + + + | Active Allergy | Reactions | Severity | Noted | Comments | | | | | Date | | + + + + + + | Penicillins | Unknown | | 12/01/19 | | | | [...] | + + + +---------+------+------+-------+ | allopurinol 300 mg | Take 300 mg by mouth | | 0 | | | Activ | | oral tablet | once daily. | | | | | e | + + + +---------+------+------+-------+ | amLODIPine 10 mg | Take 10 mg by mouth | | 0 | | | Activ | | oral tablet | once daily. | | | | | e | + + + +---------+------+------+-------+ | aspirin EC 81 mg | Take 81 mg by mouth | | 0 | | | Activ | | oral tablet,delayed | once daily. | | | | | e | | release (DR/EC) | | | | | | | + + + +---------+------+------+-------+ | omeprazole 20 mg | Take 20 mg by mouth | | 0 | | | Activ | | oral capsule,delayed | once daily. | | | | | e | | release(DR/EC) | | | | | | | + + + +---------+------+------+-------+ | docusate sodium | Take 1 capsule by | 30 | 2 | 01/2 | | Activ | | 100 mg oral | mouth two times | capsule | | 8/20 | | e | | capsuleIndications: | daily. 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 | | | 20 | | | + + + +---------+------+------+-------+ | oxyCODONE | Take 1-2 tablets by | 20 | 0 | 01/2 | | Activ | | (immediate release) | mouth every four | tablet | | 8/20 | | e | | 5 mg oral | hours as needed for | | | 20 | | | | tabletIndications: | moderate pain | | | | | | | Vaginal vault | (unresponsive to | | | | | | | prolapse after | non-opioid | | | | | | | hysterectomy | medication). | | | | | | + + + +---------+------+------+-------+ | acetaminophen | Take 1-2 tablets by | 30 | 2 | 01/2 | | Activ | | (TYLENOL) 325 mg | mouth every four | tablet | | 8/20 | | e | | oral tablet | hours as needed. | | | 20 | | | + + + +---------+------+------+-------+ | metroNIDAZOLE 0.75 | Insert 5g into the | 70 g | 0 | 02/1 | | Activ | | % vaginal | vaginal once daily | | | 2/20 | | e | | gelIndications: | for 5 days | | | 20 | | | | bacterial vaginosis | Indications: | | | | | | | | bacterial infection | | | | | | + [...] + + Plan of Treatment + + + + + | Health Maintenance | Due Date | Last | Comments | | | | Done | | + + + + + | Influenza (Flu) | | 04/15/20 | | | vaccination (#1) | 0 | 17, | | | | | 06/10/20 | | | | | 16, | | | | | 05/22/20 | | | | | 15, | | | | | Addition | | | | | al | | | | | history | | | | | exists | | + + + + + | Pneumococcal | Completed | 01/22/20 | | | vaccination | | 18, | | | | | 08/10/19 | | | | | 16, | | | | | 04/22/20 | | | | | 03 | | + + + + + Results Not on filefrom Last 3 Months Insurance + +--------+ +--------+ + +--------+ | Payer | Benefi | Subscriber | Effect | Phone | Address | Type | | | t Plan | ID | le | | | | | | / | | Dates | | | | | | Group | | | | | | + +--------+ +--------+ + +--------+ | MEDICARE | MEDICA | [id number] | 07/07/19 | [phone] | [address] | [address] | | | RE A & | | 17-Pre | 1 | 2 | re | | | B | | sent | | [place] | | | | | | | | [id number] | | + +--------+ +--------+ + +--------+ | [facility] | [facility] | [id number] | Effect | | | Agency | | SERVICE | | | le | | | | | | HEALTH | | for | | | | | | | | all | | | | | | SERVIC | | dates | | | | | | E | | | | | | + +--------+ +--------+ + +--------+ + +--------+ +--------+ + + | Guarantor Name | Accoun | Relation to | Date | Phone | Billing Address | | | t Type | Patient | of | | | | | | | | | | + +--------+ +--------+ + + | Verena Onofre | Person | Self | [birth year] | [address] | | [place] | al/Fam | | 1950 | [phone] | [place] [address] | | | sidney | | | 9 (Home) | | + +--------+ +--------+ + + Advance Directives + + + + + | Code Status | Date | Date | Comments | | | Activated | Inactivated | | + + + + + | Full Code | 08/02/2019 | 08/03/2019 | | | | 9:29 AM | 4:47 PM | | + + + + +
--- OUTSIDE RECORDS SUMMARY | ~2020-03-26 | XMS | Encounter Summary ---
Demographics + + + | Address | [address] [place] [address] | | | [place] [address] | + + + | Home Phone | | + + + | Preferred Language | Unknown | + + + | Marital Status | | + + + | Episcopal Affiliation | Unknown | + + + | Race | White | + + + | Ethnic Group | Not or | + + + Author + + + | Author | [facility] | | | and [place] | + + + | Organization | [facility] | | | and [place] | + + + | Address | Unknown | + + + | Phone | Unavailable | + + + Support + + + + + | Name | Relationship | Address | Phone | + + + + + | Jamie Sheoships | ECON | [address] | | | | | [place] [address] | | + + + + + Care Team Providers + +------+ + | Care Ice Cream Freezer Name | Role | Phone | + +------+ + PCP | Unavailable | + +------+ + Encounter Details +--------+ + + + + | Date | Type | Department | Care Team | Description | +--------+ + + + + | 11/16/ | Hospital | [facility] | | | | 2010 - | Encounter | [facility] | | | | | | [facility] | | | | 12/04/ | | [place] | | | | 2010 | | [id number] | | | | | | [phone] | | | +--------+ + + + [...] + + documented as of this encounter Progress Notes Sumanth Holloway MD - 11/16/2010 7:27 AM PDTDATE: 11/16/2010 RADIATION ONCOLOGY FOLLOWUP Mrs. Onofre comes in for a routine followup visit having last been seen on . She was treated for an early stage breast cancer on the left side. She reports no new problems in the area of treatment. She has been having some left sided neck and upper back pain. It seems that it radiates from the neck. It is aggravated somewha t with movement. She had mammography done on 10/12. The right breast was entirely normal. Interval improvem ent was noted on the left side with skin thickening and tissue density improving. Scar was noted. The MRI was categorized BI-RADS II. EXAM: Discloses a pleasant female in no distress. The cervical spine is nontender. There is no palpable supraclavicular adenopathy. Both axilla were free of masses. BREASTS: The right breast is completely normal to inspection. It is soft without nodulari ty. On the left, there is a scar in the upper-outer quadrant. There is residual hyperpigmen tation of the left breast. There are very mild peau d'orange changes. Palpation revealed ve ry slight subcutaneous induration beneath the surgical scar in the upper-outer quadrant. It was nontender. IMPRESSION: Clinically the patient is free of disease. I ordered a left mammogram to be d one in May, and a followup appointment was made for her to return after that mammogram . Bilateral mammography can be repeated 6 months later. DICTATED BY: Sumanth Holloway M.D. Radiation Oncology JOB #: [id number] EXT JOB #:[id number] cc: Jennifer Silverman MD <Electronically Signed by Sumanth Holloway MD> 11/21/10 1502 documented in this encounter Plan of Treatment Not on filedocumented as of this encounter Visit Diagnoses Not on filedocumented in this encounter"
--- OUTSIDE RECORDS SUMMARY | ~2020-03-26 | XMS | Encounter Summary ---
Demographics + + + | Address | [address] [place] [address] | | | [place] [address] | + + + | Home Phone | | + + + | Preferred Language | Unknown | + + + | Marital Status | | + + + | Taoist Affiliation | Unknown | + + + | Race | White | + + + | Ethnic Group | Not or | + + + Author + + + | Author | [facility] | | | and [place] | + + + | Organization | [facility] | | | and [place] | + + + | Address | Unknown | + + + | Phone | Unavailable | + + + Support + + + + + | Name | Relationship | Address | Phone | + + + + + | Jamie Sheoships | ECON | [address] | | | | | [place] [address] | | + + + + + Care Team Providers + +------+ + | Care Rock Crusher Name | Role | Phone | + +------+ + PCP | Unavailable | + +------+ + Encounter Details +--------+ + + + + | Date | Type | Department | Care Team | Description | +--------+ + + + + | 10/19/ | [facility] | [facility] | | | | 2008 - | Encounter | [facility] | | | | | | C[facility] | | | | 11/03/ | | [place] | | | | 2008 | | [address] | | | | | | [phone] | | | +--------+ + + + [...]
--- OUTSIDE RECORDS SUMMARY | 2020-03-26 17:44 | XMS ---
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 Care History Medical/Surgical 03/15/2020 [facility] - PATIENT IS [facility], \T\middot;\T\nbsp; PLEASE REFER PATIENT TO [facility] FOR NON EMERGENT MEDICAL NEEDS. \T\middot;\T\nbsp; [facility] CAN SEE PATIENTS SAME DAY FOR APTS IF PATIENT CALLS FIRST THING IN THE MORNING. E.D. VISIT COUNT (12 MO.) 2 [facility] TOTAL 2 NOTE: Visits indicate total known visits. ED/UCC VISIT TRACKING (12 MO.) 03/26/2020 17:41 TARUN Villalobos [place] TYPE: Emergency COMPLAINT: - BACK PAIN, DECREASED MOBILITY 03/11/2020 06:40 TARUN Villalobos [place] TYPE: Emergency COMPLAINT: - BACK PAIN, NON INJ DIAGNOSES: - Disorder of bone, unspecified - Spinal stenosis, thoracic region - Allergy status to other drugs, medicaments and biological sub - Essential (primary) hypertension - Allergy status to penicillin - Low back pain - Other outcomes manager (current) drug therapy - [facility]FP (current) use of aspirin INPATIENT VISIT TRACKING (12 MO.) 03/11/2020 21:34 Patricio Escalante [place] TYPE: Oncology DIAGNOSES: - Adverse effect of unspecified drugs, medicaments and biologic - Essential (primary) hypertension - Abnormal levels of other serum enzymes - Elevated white blood cell count, unspecified - Hypokalemia - Disorder of bone, unspecified - Pathological fracture, other site, initial encounter for frac - Hypercalcemia - Hyperglycemia, unspecified - Aneurysmal bone cyst, unspecified site - Other specified postprocedural states - Metabolic encephalopathy - Anemia, unspecified - Spondylopathy, unspecified - Opioid use, unspecified, uncomplicated - Unspecified cord compression [id number]
[2020-03-26] MEDS ORDERED: NORCO 5-325 TA1 EACH PO (18:09)
[2020-03-26] MEDS ORDERED: TYLENOL325 M1 PO (18:09)
--- NOTE | 2020-03-27 18:50 | EKG ---
[facility] [address] [facility] [place], [place] [address] Signed Normal sinus rhythm Nonspecific ST abnormality Abnormal ECG When compared with ECG of 23-DEC-2016 10:34, No significant change was found Confirmed by SHYLA CRUZ MD ([id number]) on 03/27/2020 6:50:18 PM Electronically Signed By: SHYLA CRUZ MD 03/27/201849 PATIENT NAME: OSORIO LOPEZ Electrocardiogram DATE OF : 50 PHYSICIAN: SHYLA CRUZ MD REPORT #: [id number] REPORT IS CONFIDENTIAL AND NOT TO BE RELEASED WITHOUT AUTHORIZATION
== END 2020-03-26 22:36 | disposition short-term general hospital (02) ==
LOC: ED 17:41
DX: J18.9 Pneumonia, unspecified organism (principal); I10 Essential (primary) hypertension; Z85.3 Personal history of malignant neoplasm of breast; Z87.891 Personal history of nicotine dependence; Z88.8 Allergy status to other drugs, medicaments and biological substances; Z88.0 Allergy status to penicillin; Z79.899 Other long term (current) drug therapy; Z79.82 Long term (current) use of aspirin
CPT/HCPCS: 71045; 72128; 80053; 81001; 83605; 83735; 84484; 85025; 93005; 93010; 96361; 96365; 96375; 99285-25; J0696; J2270; J2405; J7030

== ENCOUNTER 2023-07-06 22:48 | Emergency (ER) | payer MEDICARE, OTHER ==
[~2023-07-06] VITALS: Ht 154.9 cm; Wt 62.6 kg
[~2023-07-06 22:48] MED LIST changes: +TYLENOL325 M1 PO
[2023-07-06 23:23] LABS: BASOPHILS 0.9 % (0-2); EOSINOPHILS 2.9 % (0-6); HEMATOCRIT 38.9 % (35.0-50.0); HEMOGLOBIN 12.5 g/dL (12.0-18.0); LYMPHOCYTES 24.1 % (24-44); MCH 25.6 (27-36); MCHC 32.2 g/dl (30-36); MCV 79.4 fl (81-99); MONOCYTES 8.1 % (0-12); PLATELET COUNT 200 K/uL (140-440); RDW 17.2 (10.5-15.0)
[2023-07-06 23:35] LABS: INR 0.96 (0.80-1.30); PROTIME 12.4 Sec (11.2-14.2)
[2023-07-06 23:37] LABS: PARTIAL THROMBOPLASTIN TIME 27.8 Sec (22.9-41.3)
[2023-07-06 23:41] LABS: ALBUMIN 3.8 g/dL (3.4-5.0); ALBUMIN/GLOBULIN RATIO 1.15 (1.1-2.4); ANION GAP 14.5 (7-21); BILIRUBIN, TOTAL 0.3 ng/dL (0.2-1.0); BUN/CREATININE RATIO 14.77 (6.0-28.6); CALCIUM 10.1 mg/dL (8.5-10.1); CREATININE, SERUM 0.88 mg/dL (0.55-1.02); POTASSIUM 3.5 mmol/L (3.5-5.1); PROTEIN, TOTAL 7.1 g/dL (6.4-8.2)
[2023-07-07 00:21] LABS: BILIRUBIN, URINE NEGATIVE (negative); BLOOD/HGB, URINE NEGATIVE (Negative); KETONE, URINE NEGATIVE (Negative); LEUK ESTERASE, URINE NEGATIVE (negative); NITRITE, URINE NEGATIVE (negative)
[2023-07-07] MEDS ORDERED: PLAVIX75 MG PO (01:28)
[2023-07-07 03:10] VITALS: BP 159/83
--- NOTE | 2023-07-07 23:46 | EKG ---
[facility] [address] [place] [address] Signed Sinus rhythm with sinus arrhythmia with frequent premature ventricular complexes Minimal voltage criteria for LVH, may be normal variant ( R in aVL ) Borderline ECG When compared with ECG of 26-MAR-2020 18:22, premature ventricular complexes are now present Confirmed by Hardy Do MD () on 07/07/2023 11:46:27 PM Electronically Signed By: HARDY DO MD 07/07/23 2346 PATIENT NAME: OSORIO LOPEZ Electrocardiogram DATE OF : 50 PHYSICIAN: HARDY DO MD REPORT #: [id number] REPORT IS CONFIDENTIAL AND NOT TO BE RELEASED WITHOUT AUTHORIZATION
== END 2023-07-07 03:10 | disposition home or self-care (01) ==
LOC: ED 22:48
PROVIDERS: Internal Medicine
DX: I16.0 Hypertensive urgency (principal); H69.91 Unspecified Eustachian tube disorder, right ear; I10 Essential (primary) hypertension; Z87.891 Personal history of nicotine dependence; Z88.0 Allergy status to penicillin; Z88.8 Allergy status to other drugs, medicaments and biological substances; Z79.82 Long term (current) use of aspirin; Z79.899 Other long term (current) drug therapy
CPT/HCPCS: 36415; 70450; 70496; 70498; 71045; 80053; 81003; 85025; 85610; 85651; 85730; 86140; 93005; 93010; 99284-25; J0360; J7512; Q9967

== ENCOUNTER 2024-10-28 22:03 | Emergency (ER) | payer OTHER, MEDICARE ==
[~2024-10-28] VITALS: Ht 154.9 cm; Wt 63.1 kg
[~2024-10-28 22:03] MED LIST changes: +PLAVIX75 MG PO
[2024-10-29 00:06] VITALS: BP 204/102
== END 2024-10-29 00:08 | disposition home or self-care (01) ==
LOC: ED 22:03
DX: S60.221A Contusion of right hand, initial encounter (principal); I10 Essential (primary) hypertension; Z88.0 Allergy status to penicillin; Z88.8 Allergy status to other drugs, medicaments and biological substances; Z87.891 Personal history of nicotine dependence; W01.0XXA Fall on same level from slipping, tripping and stumbling without subsequent striking against object, initial encounter
CPT/HCPCS: 73130; 99283